=== PATIENT | female | born 1960 ===

== ENCOUNTER 2019-12-04 11:27 | Outpatient (REF) | payer OTHER, SELFPAY ==
[2019-12-04 13:48] LABS: MANUAL DIFF FLAG NO
[2019-12-04 13:48] LABS: Glucose Urine UA NEG (NEG); Leukocyte Esterase Urine NEG (NEG); Nitrite Urine NEG (NEG); Specific Gravity - Urine 1.025 (1.005-1.025); Urine Blood NEG (NEG); Urine Ketones NEG (NEG); Urine Protein NEG (NEG-TRACE)
[2019-12-04 13:49] LABS: Appearance Urine TURBID; Color Urine DARK YELLOW
[2019-12-04 13:55] LABS: Basophils Percent Auto 0.5 % (0-2); Eosinophils Absolute Auto 0.1 X10*3/uL (0.0-0.4); Eosinophils Percent Auto 1.8 % (0-4); Hematocrit 43.7 % (37-47); Hemoglobin 14.7 g/dl (12.0-16.0); Imm Gran Abs Auto 0.02 X10*3/uL (0.00-0.03); Imm Gran Pct Auto 0.4 % (0.0-0.4); Mean Corpuscular HGB Conc 33.6 g/dl (31.0-35.0); Mean Corpuscular Hemoglobin 30.2 pg (27.0-33.0); Mean Corpuscular Volume 89.7 fL (80-98); Mean Platelet Volume 9.7 fL (9.4-12.3); Monocytes Absolute Auto 0.4 X10*3/uL (0.1-1.2); Monocytes Percent Auto 6.4 % (2-11); Neutrophils Absolute Auto 3.2 X10*3/uL (2.0-8.3); Neutrophils Percent Auto 55.9 % (45-73); Platelet Count 290 X10*3/uL (160-400); Red Blood Count 4.87 X10*6/uL (4.20-5.50); Red Cell Distribution Width 12.2 % (11.0-16.0); White Blood Count 5.6 X10*3/uL (4.8-10.8)
[2019-12-04 13:57] LABS: RBC Urine 0 /HPF (0); WBC Urine 0 /HPF (0-4)
[2019-12-04 13:58] LABS: Amorphous Sediment Urine 4+ /LPF
[2019-12-04 14:24] LABS: Creatinine Urine 281.24 mg/dL; Microalbum/Creatinine Ratio Ur 4.9 ug/mg cr
[2019-12-04 14:36] LABS: Alanine Aminotransferase 23 U/L (0-31); Albumin Level 4.6 g/dL (3.5-5.0); Alkaline Phosphatase 86 U/L (39-117); Anion Gap 12 (12-20); Aspartate Amino Transferase 20 U/L (5-31); Bilirubin Total 0.7 mg/dL (0.0-1.0); Blood Urea Nitrogen 13 mg/dL (9-16); Calcium 9.6 mg/dL (8.4-10.2); Carbon Dioxide 30 mmol/L (22-29); Chloride 102 mmol/L (96-108); Cholesterol 167 mg/dL; Estimated Glomerular Filt Rate > 60; Glucose Fasting 115 mg/dL (60-99); HDL Cholesterol 51 mg/dL; LDL Cholesterol Calculated 92 mg/dl; Potassium 3.5 mmol/l (3.3-5.1); Sodium 140 mmol/L (135-145); Total Protein 7.5 g/dL (6.5-8.0); Triglycerides 120 mg/dL
[2019-12-04 14:44] LABS: TSH reflex Free T4 0.53 mIU/mL (0.32-4.0)
[2019-12-04 15:19] LABS: Estimated Average Glucose 148 mg/dL; Hemoglobin A1c % 6.8 %
== END 2019-12-04 11:28 | disposition home or self-care (01) ==
LOC: HO.10HDL 11:27
PROVIDERS: Visit Provider Internal Medicine
DX: E11.9 Type 2 diabetes mellitus without complications (principal); E78.5 Hyperlipidemia, unspecified; I10 Essential (primary) hypertension; J45.909 Unspecified asthma, uncomplicated; E55.9 Vitamin D deficiency, unspecified; E66.9 Obesity, unspecified; R00.2 Palpitations
CPT/HCPCS: 36415; 80053; 80061; 81003; 81015; 82043; 82306; 83036; 84443; 85025

== ENCOUNTER → 2020-01-21 15:11 | Outpatient (BNVA) | payer OTHER, SELFPAY | PROVIDERS: PCP Internal Medicine; Visit Provider Obstetrics & Gynecology | DX: Z76.89 Persons encountering health services in other specified circumstances (principal) ==

== ENCOUNTER 2020-02-20 13:20 | Outpatient (REF) | payer OTHER, SELFPAY ==
--- NOTE | 2020-02-20 13:23 | US_ITS ---
EXAMINATION: US PELVIS COMPLETE US PELVIS ENDOVAGINAL CLINICAL INFORMATION: Unspecified condition associated with female genital organs and menstrual cycle. Per the emt intermediate's notes, adnexal COMPARISON: Ultrasound 07/27/2012 TECHNIQUE: Transabdominal and transvaginal images of the pelvis were obtained. FINDINGS: UTERUS: Anteverted. Normal size and contour, measuring 9.0 x 4.4 x 5.4 cm (cervix to fundus x AP x transverse). Uniform, homogeneous endometrium measures 0.4 cm in width. Several small circumscribed leiomyomata are seen. There is a 2.3 cm leiomyoma in the anterior uterine body. This is hyperechoic suggesting calcification. There are additional 1.9 and 0.7 cm leiomyoma in the posterior uterine body. These are similar in size to the prior study. RIGHT OVARY: Normal size and echogenicity measuring 3.1 x 2.2 x 1.8 cm. 6.4 mL volume. LEFT OVARY: Normal size and echogenicity measuring 2.4 x 1.7 x 1.9 cm. 4.1 mL volume. FREE FLUID: No pelvic free fluid. US/US transvaginal IMPRESSION: Normal ovaries bilaterally. Several myomas are seen in the uterus, the largest measuring 2.3 cm may be calcified. Normal endometrial stripe.
--- NOTE | 2020-02-20 13:23 | US_ITS ---
EXAMINATION: US PELVIS COMPLETE US PELVIS ENDOVAGINAL CLINICAL INFORMATION: Unspecified condition associated with female genital organs and menstrual cycle. Per the commodity trader's notes, adnexal COMPARISON: Ultrasound 07/27/2012 TECHNIQUE: Transabdominal and transvaginal images of the pelvis were obtained. FINDINGS: UTERUS: Anteverted. Normal size and contour, measuring 9.0 x 4.4 x 5.4 cm (cervix to fundus x AP x transverse). Uniform, homogeneous endometrium measures 0.4 cm in width. Several small circumscribed leiomyomata are seen. There is a 2.3 cm leiomyoma in the anterior uterine body. This is hyperechoic suggesting calcification. There are additional 1.9 and 0.7 cm leiomyoma in the posterior uterine body. These are similar in size to the prior study. RIGHT OVARY: Normal size and echogenicity measuring 3.1 x 2.2 x 1.8 cm. 6.4 mL volume. LEFT OVARY: Normal size and echogenicity measuring 2.4 x 1.7 x 1.9 cm. 4.1 mL volume. FREE FLUID: No pelvic free fluid. US/US pelvic complete IMPRESSION: Normal ovaries bilaterally. Several myomas are seen in the uterus, the largest measuring 2.3 cm may be calcified. Normal endometrial stripe.
== END 2020-02-20 13:21 | disposition home or self-care (01) ==
LOC: HO.US 13:20
PROVIDERS: PCP Internal Medicine; Visit Provider Obstetrics & Gynecology
DX: N94.9 Unspecified condition associated with female genital organs and menstrual cycle (principal)
CPT/HCPCS: 76830; 76856

== ENCOUNTER → 2020-02-24 11:02 | Outpatient (BNVA) | payer OTHER, SELFPAY | PROVIDERS: PCP Internal Medicine; Visit Provider Obstetrics & Gynecology | DX: Z76.89 Persons encountering health services in other specified circumstances (principal) ==

== ENCOUNTER → 2020-03-09 13:26 | Outpatient (BNVA) | payer OTHER, SELFPAY | PROVIDERS: PCP Internal Medicine; Visit Provider Nurse Practitioner Family ==

== ENCOUNTER 2020-04-20 09:01 | Day surgery (SDC) | payer OTHER, SELFPAY ==
--- NOTE | 2020-04-17 09:34 | HO.ANESPROP2 ---
Documented by User: Kristan Jackson 04/17/20 09:34 HPI - Anesthesia Eval Consult details Narrative: 59yo F for Colonoscopy PMFSH Active Problems Active Problems: All Active Problems (Updated 04/15/20 @ 08:47 by Keila Saini) Adnexal fullness (Acute) Myoma (Acute) Obesity (BMI 30-39.9) (Acute) Depression (Acute) Anxiety (Acute) Insomnia (Acute) Vitamin D deficiency (Acute) Constipation (Acute) Asthma (Acute) Palpitations (Acute) Pure hypercholesterolemia (Acute) Benign essential hypertension (Acute) Type 2 diabetes mellitus without complications (Acute) Past Medical History Medical History (Updated 04/15/20 @ 08:47 by Keila Saini) Anxiety Asthma Benign essential hypertension Constipation Depression Insomnia Obesity (BMI 30-39.9) Palpitations Pure hypercholesterolemia Type 2 diabetes mellitus without complications Vitamin D deficiency Family History Family History Father Diabetes Stroke Hypertension Mother Uterine cancer Hypertension Sister No problems noted. Surgical History Surgical History History of removal of ovarian cyst History of tubal ligation Social History Social History Alcohol intake: current Alcohol intake frequency: a few times a month Alcohol type: wine Smoking Status: Never smoker Use of substances other than those prescribed or required for medical reasons: No Have you been hit, kicked, punched, or otherwise hurt by someone within the past year? If so, by whom?: No Advance Directives: Yes Advance Directives on File: Yes Advance Directives Date on File: 12/04/19 Sexual orientation: Straight/Heterosexual Gender identity: female Meds Allergies Allergy/AdvReac Type Severity Reaction Status Date / Time No Known Allergies Allergy Verified 03/11/20 13:44 Home Medications Medication Instructions Recorded Confirmed Last Taken Type albuterol sulfate 90 mcg/actuation 1 inh INHALATION Q4H PRN 12/11/19 04/15/20 Unknown History aerosol inhaler cyclobenzaprine 10 mg tablet 10 mg PO TID PRN 12/11/19 04/15/20 Unknown History amlodipine 2.5 mg tablet 2.5 mg PO DAILY 12/15/19 04/15/20 Unknown History ciclesonide 80 mcg/actuation 1 puff INHALATION BID 12/15/19 04/15/20 Unknown History aerosol inhaler citalopram 40 mg tablet 20 mg PO DAILY 12/15/19 04/15/20 Unknown History lorazepam 0.5 mg tablet 0.5 mg PO BID PRN 12/15/19 04/15/20 Unknown History albuterol sulfate 2.5 mg CONTINUOUS NEBULIZATION Q6H 03/11/20 04/15/20 Unknown History PRN Exam Exam Date and Time: April 17, [id number] Assessment and Plan Assessment Anesthesia Assessment: Chart Reviewed Documented by User: Diamante Sunshine 04/20/20 09:55 [facility] Past Medical History Medical History (Updated 04/15/20 @ 08:47 by Keila Saini) Anxiety Asthma Benign essential hypertension Constipation Depression Insomnia Obesity (BMI 30-39.9) Palpitations Pure hypercholesterolemia Type 2 diabetes mellitus without complications Vitamin D deficiency Family History Family History Father Diabetes Stroke Hypertension Mother Uterine cancer Hypertension Sister No problems noted. Surgical History Surgical History History of removal of ovarian cyst History of tubal ligation Social History Social History Alcohol intake: current Alcohol intake frequency: a few times a month Alcohol type: wine Smoking Status: Never smoker Use of substances other than those prescribed or required for medical reasons: No Have you been hit, kicked, punched, or otherwise hurt by someone within the past year? If so, by whom?: No Advance Directives: Yes Advance Directives on File: Yes Advance Directives Date on File: 12/04/19 Sexual orientation: Straight/Heterosexual Gender identity: female Meds Allergies Allergy/AdvReac Type Severity Reaction Status Date / Time No Known Allergies Allergy Verified 03/11/20 13:44 Home Medications Medication Instructions Recorded Confirmed Last Taken Type albuterol sulfate 90 mcg/actuation 1 inh INHALATION Q4H PRN 12/11/19 04/15/20 Unknown History aerosol inhaler cyclobenzaprine 10 mg tablet 10 mg PO TID PRN 12/11/19 04/15/20 Unknown History amlodipine 2.5 mg tablet 2.5 mg PO DAILY 12/15/19 04/15/20 Unknown History ciclesonide 80 mcg/actuation 1 puff INHALATION BID 12/15/19 04/15/20 Unknown History aerosol inhaler citalopram 40 mg tablet 20 mg PO DAILY 12/15/19 04/15/20 Unknown History lorazepam 0.5 mg tablet 0.5 mg PO BID PRN 12/15/19 04/15/20 Unknown History albuterol sulfate 2.5 mg CONTINUOUS NEBULIZATION Q6H 03/11/20 04/15/20 Unknown History PRN Exam Airway Mallampati Class: II TM Dist: >3cm Neck ROM: Full Heart: RRR Lungs: CTa BL Assessment and Plan Assessment Anesthesia Assessment: Anesthesia Plan Discussed and Chart Reviewed Final Anesthetic Review NPO: Yes ASA Class: II Final Preanesthetic Review: No Changes in Pt Med Stat Patient Risk: Intermediate Procedure Risk: Intermediate Anesthetic Plan Anesthetic Plan: MAC: Disposition: Standard PACU
[2020-04-20 09:18] VITALS: BMI 27.4
[2020-04-20 09:28] VITALS: BP 173/90; PULSE 84; RESP 18; TEMP 35.8; O2SAT 98
[2020-04-20] MEDS: Lactated Ringers 1,000 ML 100 ML IVCONT (09:40)
[2020-04-20 09:52] LABS: Glucose, Whole Blood 107 mg/dL (60-115)
--- NOTE | 2020-04-20 09:53 | W.PM.OPN ---
Operative Note Operative Note Date of Service: 04/20/20 Narrative: Pre-op diagnosis: Colon cancer screening, chronic constipation Post-op diagnosis: other (Diverticulosis, hemorrhoids) Procedure: COLONOSCOPY TO CECUM WITH BIOPSIES Consent: Indications for the procedure and potential complications of bleeding, perforation, reaction to medications and missed diagnosis were discussed with the patient with the help of a aluminum siding mechanic and informed consent was obtained. Instrument: Olympus PCF H 190 L variable stiffness pediatric colonoscope Monitoring: Vital signs and clinical assessment, intermittent blood pressure monitoring, continuous EKG monitoring, Pulse oximetry and Carbon Dioxide monitoring were done throughout the procedure. Colon withdrawl time was 16 minutes. Procedure: The patient was placed in the left lateral decubitis position and pre-procedure medications were administered. After a digital rectal examination of the ano-rectum, the video colonoscope was inserted into the rectum and advanced through the colon to the cecum. The colonoscope was slowly withdrawn in a retrograde panoramic fashion and the colon mucosa was carefully examined including a retroflexed view of the rectum. Findings and interventions are described below. Procedure Difficulty: Without difficulty Findings: Terminal Ileum: Not evaluated Cecum: Normal Ascending Colon: Patchy hyperpigmentation throughout the colon - biopsies were obtained to rule out melanosis coli Transverse Colon: Patchy hyperpigmentation throughout the colon - biopsies were obtained to rule out melanosis coli Descending Colon: Patchy hyperpigmentation throughout the colon - biopsies were obtained to rule out melanosis coli Sigmoid Colon: Mild diverticulosis Rectum: Normal Ano-rectum: Small internal hemorrhoids Colon preparation: Good after some irrigation Impression and Post Procedure Diagnosis: Colonoscopy Findings: No polyps were detected Patchy hyperpigmentation throughout the colon - biopsies were obtained to rule out melanosis coli Moderate diverticulosis seen in the sigmoid colon Moderate hemorrhoids on retroflexed exam. Plan: Await pathology results Patient has an appointment on 04/24/20 in the [facility] with Kelly Yuen FNP-JIMENA. Repeat Colonoscopy in 10 years. Above findings were reviewed with the patient and diverticulosis handouts were given in the discharge area Surgeon: Larry Hunt MD Anesthesia: MAC (Dr Ortega) Estimated blood loss (mL): 0 Pathology: other (Rt colon - rule out melanosis coli) Condition: stable Disposition: PACU
--- NOTE | 2020-04-20 09:53 | MHC.SHP ---
Pre-Procedural Eval Section A The patient is an INPATIENT: No The History & Physical has been completed within 30 days and I have reviewed it.: No Section B Chief Complaint: Screening Details of Present Illness: Colon cancer screening, chronic constipation Relevant Family History (Specify if Yes): No Relevant Social History: None Present Medications: see Short Stay Collaborative assessment Medical History: Significant History (Anxiety Asthma Benign essential hypertension Colon cancer screening Constipation Depression Insomnia Obesity (BMI 30-39.9) Palpitations Pure hypercholesterolemia Type 2 diabetes mellitus without complications Vitamin D deficiency) History of Previous Operations: Relevant previous surgery/procedure and date(s) (History of removal of ovarian cyst, History of tubal ligation) Allergies: Allergies Allergy/AdvReac Type Severity Reaction Status Date / Time No Known Allergies Allergy Verified 03/11/20 13:44 Review of Systems Sugical H&P ROS: Negative: Constitution, Cardiovascular and Respiratory and Yes, Specify: Gastrointestinal (constipation) Exam Surgical H&P Exam: Normal: Heart, Normal: Lungs, Normal: Extremities and Normal: Abdomen Plan Diagnosis/Plan: Unchanged I have reviewed the history and physical and performed a pertinent physical examination on my patient. No changes have occurred unless specified.
[2020-04-20 10:33] VITALS: BP 106/60; PULSE 74; RESP 16; TEMP 36.2; O2SAT 96
[2020-04-20 10:48] VITALS: BP 136/80; PULSE 79; RESP 18; TEMP 36.2; O2SAT 98
== END 2020-04-20 11:36 | disposition home or self-care (01) ==
PROVIDERS: PCP Internal Medicine; Visit Provider Internal Medicine Gastroenterology
PROC: 0DJD8ZZ Inspection of Lower Intestinal Tract, Via Natural or Artificial Opening Endoscopic (ICD-10-PCS; CPT 45378; principal; 2020-04-20 10:00)
DX: Z12.11 Encounter for screening for malignant neoplasm of colon (principal); K57.30 Diverticulosis of large intestine without perforation or abscess without bleeding; K63.89 Other specified diseases of intestine; K64.8 Other hemorrhoids; K59.00 Constipation, unspecified; J45.909 Unspecified asthma, uncomplicated; I10 Essential (primary) hypertension; E11.9 Type 2 diabetes mellitus without complications; F41.9 Anxiety disorder, unspecified; Z79.51 Long term (current) use of inhaled steroids; Z79.899 Other long term (current) drug therapy
CPT/HCPCS: 45380; 82947; 88305

== ENCOUNTER → 2020-04-24 13:46 | Outpatient (BNVA) | payer OTHER, SELFPAY | PROVIDERS: PCP Internal Medicine; Visit Provider Nurse Practitioner Family ==

== ENCOUNTER → 2020-05-15 14:43 | Outpatient (BNVA) | payer OTHER, SELFPAY | PROVIDERS: PCP Internal Medicine; Visit Provider Nurse Practitioner Family ==

== ENCOUNTER → 2020-07-31 13:42 | Outpatient (BNVA) | payer OTHER, SELFPAY | PROVIDERS: PCP Internal Medicine; Visit Provider Nurse Practitioner Family ==

== ENCOUNTER 2020-08-03 14:23 | Outpatient (REF) | payer OTHER, SELFPAY ==
--- NOTE | ~2020-08-03 | MM_ITS ---
EXAMINATION: MM SCREENING DIGITAL BREAST TOMOSYNTHESIS, BILATERAL CLINICAL INFORMATION: Screening. Asymptomatic. The lifetime risk of breast cancer based on the Tyrer-Cuzick Model is 5%. COMPARISON: Mammography: 02/26/2019, 12/21/2017, 11/17/2014 TECHNIQUE: Digital breast tomosynthesis is performed in both the craniocaudal and mediolateral oblique views along with computer-aided detection (CAD). Synthesized 2D images are generated from the tomosynthesis. FINDINGS: There are scattered areas of fibroglandular density (ACR BI-RADS breast composition Category b). There are no significant masses, abnormal calcifications, or other abnormalities. Parenchymal pattern is similar to prior studies. No developing density. There is a smooth dermal lesion again noted posterior medial right breast on MLO tomography. The axilla are unremarkable. No significant changes. MM/MM tomosynthesis screening BI IMPRESSION: No mammographic evidence of malignancy. ASSESSMENT: BI-RADS 2: Benign RECOMMENDATION: Routine annual mammography screening. This patient's information was entered into a reminder system with a target due date for their next mammogram.
== END 2020-08-03 14:24 | disposition home or self-care (01) ==
LOC: HO.MAMMO 14:23
PROVIDERS: Visit Provider Internal Medicine
DX: Z12.31 Encounter for screening mammogram for malignant neoplasm of breast (principal)
CPT/HCPCS: 77063; 77067

== ENCOUNTER 2020-09-21 13:23 | Emergency (ER) | payer OTHER, SELFPAY ==
--- NOTE | ~2020-09-21 | CT_ITS ---
EXAMINATION: CT ABDOMEN AND PELVIS WITHOUT CONTRAST CLINICAL INFORMATION: Question kidney stone. Suprapubic pain with blood in urinalysis COMPARISON: None TECHNIQUE: Multidetector volumetric imaging was performed from the superior aspect of the liver through the pubic symphysis. Sagittal and coronal reformatted images were obtained on the technologist's workstation. This CT examination was performed using dose optimization techniques as appropriate, variously including the following: *Automated exposure control *Adjustment of mA and/or kV according to patient size (this includes techniques or standardized protocols for targeted exams where dose is matched to indication/reason for exam; i.e. extremities or head) *Use of iterative reconstruction technique DLP: 563 mGy-cm FINDINGS: LUNG BASES: 6 mm nodule in the lingula adjacent to a region of linear atelectasis. 3 mm nodule in the medial right lung base (4, 56/730). Additional areas of linear atelectasis in both lung bases. LIVER, GALLBLADDER, AND BILIARY TREE: The liver is normal in size, shape, and attenuation. No focal hepatic lesion or biliary ductal dilatation is present. The gallbladder is unremarkable with no evidence of radiopaque gallstones, gallbladder wall thickening, or obvious pericholecystic inflammatory changes. PANCREAS: Unremarkable. SPLEEN: Unremarkable. ADRENAL GLANDS: Unremarkable. KIDNEYS AND URETERS: The kidneys are normal in size, shape, and attenuation. No hydronephrosis, hydroureter, or calculi seen. No perinephric stranding. BLADDER: Partially distended bladder is unremarkable, no bladder calculi. GASTROINTESTINAL TRACT: No bowel obstruction. Appendix is normal. A few colonic diverticuli. Some very mild nonspecific haziness in the mesentery. ABDOMINAL WALL: No significant hernia is appreciated. LYMPH NODES: Normal. VASCULAR: Unremarkable. PELVIC VISCERA: Unremarkable. OSSEOUS STRUCTURES: Unremarkable. CT/CT abdomen pelvis wo con IMPRESSION: No hydronephrosis or renal calculi. No acute abnormality to explain the patient's symptoms. A 6 mm nodule in the lingula and a 3 mm nodule in the right lower lobe. According to the UPDATED 2017 Fleischner Society recommendations, the advised follow-up imaging for solid nodules < 6 mm is: LOW RISK PATIENT: No routine follow-up. HIGH RISK PATIENT: Optional CT at 12 months.
[2020-09-21 15:29] VITALS: BP 167/78; PULSE 89; RESP 18; TEMP 37; O2SAT 99; BMI 29.5
[2020-09-21 16:27] LABS: Hematocrit 43.5 % (37-47); Hemoglobin 14.9 g/dl (12.0-16.0); Mean Corpuscular HGB Conc 34.3 g/dl (31.0-35.0); Mean Corpuscular Volume 90.6 fL (80-98); Mean Platelet Volume 9.3 fL (9.4-12.3); Platelet Count 252 X10*3/uL (160-400); Red Cell Distribution Width 12.3 % (11.0-16.0); White Blood Count 11.9 X10*3/uL (4.8-10.8)
[2020-09-21 16:47] LABS: Anion Gap 14 (12-20); Blood Urea Nitrogen 14 mg/dL (9-16); Carbon Dioxide 27 mmol/L (22-29); Chloride 104 mmol/L (96-108); Creatinine Clr Calc Pharmacy 73.8; Estimated Glomerular Filt Rate > 60; Glucose Random 119 mg/dL (60-115); Sodium 141 mmol/L (135-145)
[2020-09-21 18:20] LABS: Appearance Urine HAZY; Color Urine YELLOW; Glucose Urine UA NEG (NEG); Leukocyte Esterase Urine TRACE (NEG); Nitrite Urine NEG (NEG); Specific Gravity - Urine 1.025 (1.005-1.025); UACC Culture Trigger YES; Urine Blood 3+ (NEG); Urine Ketones NEG (NEG); Urine Protein 2+ MG/DL (NEG-TRACE)
[2020-09-21 18:25] LABS: Bacteria Urine 2+ /LPF; Squamous Epithelial Cell Urine 1+ /LPF; WBC Urine 0-2 /HPF (0-4)
[2020-09-21 18:36] VITALS: BP 144/88; PULSE 80; RESP 16; TEMP 37; O2SAT 99
[2020-09-21 18:58] VITALS: BP 179/82; PULSE 92; RESP 16; TEMP 36.8; O2SAT 98
--- NOTE | 2020-09-21 18:59 | PC.NURSE ---
Pt aaox4, sitting upright on stretcher in NAD, breathing with ease on RA. Pt offers complaints of BLQ abd pain, sharp, worse with urination. Pt states they told me I have a urinary infection so I'm just waiting. Pt denies n/v/d. Pt offers no additional complaints. Stretcher in low locked position, call [employer] and personal belongings within reach. Awaiting dispo
--- NOTE | 2020-09-21 19:07 | ED_ITS ---
HPI - Female Genitourinary General Chief complaint: Urogenital-Female Stated complaint: possible UTI? Time Seen by Provider: 09/21/20 17:51 Source: patient Mode of arrival: ambulatory Limitations: no limitations History of Present Illness HPI Narrative: Patient presents to the ED for suprapubic pain with dysuria and mild hematuria for the past couple days. Patient states no nausea, vomiting, flank pain, fever, chills or any recent trauma to pelvic, genital, abdominal area. MD elicited complaint: dysuria Related Data Home Medications Medication Instructions Recorded Confirmed albuterol sulfate 90 mcg/actuation 1 inh INHALATION Q4H PRN 12/11/19 04/15/20 aerosol inhaler cyclobenzaprine 10 mg tablet 10 mg PO TID PRN 12/11/19 04/15/20 amlodipine 2.5 mg tablet 2.5 mg PO DAILY 12/15/19 04/15/20 ciclesonide 80 mcg/actuation 1 puff INHALATION BID 12/15/19 04/15/20 aerosol inhaler (Alvesco) citalopram 40 mg tablet 20 mg PO DAILY 12/15/19 04/15/20 lorazepam 0.5 mg tablet 0.5 mg PO BID PRN 12/15/19 04/15/20 albuterol sulfate 2.5 mg CONTINUOUS NEBULIZATION Q6H 03/11/20 04/15/20 PRN Previous Rx's Medication Instructions Recorded mirtazapine 15 mg tablet 15 mg PO BEDTIME #30 tab 12/10/19 docusate sodium 100 mg capsule 100 mg PO DAILY #30 cap 03/09/20 trazodone 100 mg tablet 200 mg PO BEDTIME PRN 30 Days #60 03/11/20 tab ergocalciferol (vitamin D2) 1,250 1,250 mcg PO QWEEK #4 cap 03/31/20 mcg (50,000 unit) capsule lisinopril 20 1 tab PO DAILY #30 tab 03/31/20 mg-hydrochlorothiazide 25 mg tablet methylcellulose (laxative) 500 mg 500 mg PO DAILY #30 tab 04/24/20 tablet (Citrucel) metoprolol succinate 50 mg 50 mg PO DAILY #30 tab 07/15/20 tablet,extended release 24 hr atorvastatin 20 mg tablet 20 mg PO DAILY #30 tab 08/03/20 cefuroxime axetil 250 mg tablet 250 mg PO Q12H 7 Days #14 tab 09/21/20 naproxen 500 mg tablet 500 mg PO BID PRN #20 tab 09/21/20 Allergies Allergy/AdvReac Type Severity Reaction Status Date / Time No Known Allergies Allergy Verified 07/31/20 13:43 Review of Systems Review of Systems: Yes all other systems are reviewed and are negative Constitutional: Constitutional: Reports as per HPI and Reports no additional constitutional complaints Eyes: Eyes: Reports as per HPI and Reports no additional eye complaints ENT: Reports system reviewed and no additional complaints, except as documented and Reports as per HPI Cardiovascular: Cardiovascular: Reports as per HPI and Reports no additional cardiovascular complaints Respiratory: Respiratory: Reports as per HPI and Reports no additional respiratory complaints Gastrointestinal: Gastrointestinal: Reports as per HPI, Reports no additional gastrointestinal complaints and Reports abdominal pain (Suprapubic) Genitourinary: Genitourinary: Reports no additional female genitourinary complaints, Reports hematuria and Reports dysuria Musculoskeletal: Musculoskeletal: Reports no additional musculoskeletal complaints and Reports as per HPI Integumentary/Breasts: Skin/Breast: Reports system reviewed and no additional complaints, except as docu and Reports as per HPI Neurologic: Reports system reviewed and no additional complaints, except as d ocumented and Reports as per HPI Psychiatric: Psychiatric: Reports no additional psychiatric complaints and Reports as per HPI PMFSH Past Medical History Medical History Anxiety Asthma Benign essential hypertension Constipation Depression Insomnia Obesity (BMI 30-39.9) Palpitations Pure hypercholesterolemia Type 2 diabetes mellitus without complications Vitamin D deficiency Surgical History H/O colonoscopy History of removal of ovarian cyst History of tubal ligation Family History Family History Father Diabetes Stroke Hypertension Mother Uterine cancer Hypertension Sister No problems noted. Social History Social History Household Members: Children Alcohol intake: never Smoked in Last 30 Days: No Use of substances other than those prescribed or required for medical reasons: No Advance Directives: Yes Advance Directives on File: Yes Advance Directives Date on File: 12/04/19 Patient : No Sexual orientation: Straight/Heterosexual Gender identity: female Physical Exam Vital Signs: Vital Signs: Last Vital Signs Temp 98.4 F 09/21/20 20:31 Pulse 80 09/21/20 20:31 Resp 16 09/21/20 20:31 BP 165/75 H 09/21/20 20:31 Pulse Ox 99 09/21/20 20:31 Body Mass Index 29.5 Const: General: cooperative, healthy appearing, comfortable, no acute distress, well developed, alert, awake and Physically active O rientation/consciousness: patient oriented x3 HENMT: Head: Yes normal to inspection, Yes No palpable skull fracture present, Yes normocephalic and Yes atraumatic Eyes: General: appearance normal, both eyes and all related structures Neck: Neck: Yes normal visual inspection, Yes full ROM, Yes no lymphadenopathy, Yes no meningeal signs, Yes trachea midline, Yes supple and No tender Chest: Chest palpation & inspection: normal inspection of the chest and normal palpation of entire chest wall Resp: Effort & Inspection: normal respiratory effort and able to speak in complete sentences Auscultation: clear to auscultation bilaterally Cardio: Jugular venous distension: no JVD Heart sounds: S1 normal heart sound present and S2 normal heart sound present GI: Inspection: Yes normal to inspection and No abdominal wall ecchymosis Palpation (GI): Soft to palpation, not firm, nontender, no guarding and not rigid : General: No CVA tenderness and Yes no CVA tenderness Back/Spine/Pelvis: Back: no CVA tenderness, No CVA tenderness and No back tenderness Skin: General skin exam: no rashes or lesions noted and elasticity normal Neuro: General: patient oriented x3, gait normal, no meningeal signs and CN's II-XI intact bilaterally Cranial nerves: Yes CN's II-XII intact bilaterally Extrem: General: Yes normal to inspection and Yes full ROM Course Course Course Narrative: Patient was rapidly medical screen. Waiting for UA. Reevaluation(s) Reevaluation #1: Patient labs are normal, but show plenty of blood in the urine so although patient is comfortable was sent for abdominal CT to check for kidney stones. Time: 18:11 Reevaluation #2: Patient's abdominal CT came back negative for any kidney st ones. Patient will be discharged with antibiotics and follow-up with PCP. Patient vital signs stable. Time: 20:32 [facility] - Female Genitourinary MDM Narrative Medical decision making narrative: UTI Lab Data Result diagrams: 09/21/20 16:11 09/21/20 16:11 Labs: Lab Results 09/21/20 09/21/20 09/21/20 Range/Units 16:11 16:11 18:11 WBC 11.9 H (4.8-10.8) X10*3/uL RBC 4.80 (4.20-5.50) X10*6/uL Hgb 14.9 (12.0-16.0) g/dl Hct 43.5 (37-47) % MCV 90.6 (80-98) fL MCH 31.0 (27.0-33.0) pg MCHC 34.3 (31.0-35.0) g/dl RDW 12.3 (11.0-16.0) % Plt Count 252 (160-400) X10*3/uL MPV 9.3 L (9.4-12.3) fL Absolute Nucleated RBC 0.000 (0.0-0.012) X10*3/uL Nucleated RBC % (auto) 0.0 (0.0-0.2) /100WBC Sodium 141 (135-145) mmol/L Potassium 4.0 (3.3-5.1) mmol/L Chloride 104 (96-108) mmol/L Carbon Dioxide 27 (22-29) mmol/L Anion Gap 14 (12-20) BUN 14 (9-16) mg/dL Creatinine 0.78 (0.5-1.4) mg/dL Estim Creat Clear Calc 73.8 Estimated GFR > 60 Random Glucose 119 H (60-115) mg/dL Calcium 10.0 (8.4-10.2) mg/dL Urine Color YELLOW Urine Appearance HAZY Urine pH 6.0 (5.0-8.0) Ur Specific [place] 1.025 (1.005-1.025) Urine Protein 2+ H (NEG-TRACE) MG/DL Urine Glucose (UA) NEG (NEG) MG/DL Urine Ketones NEG (NEG) MG/DL Urine Blood 3+ H (NEG) Urine Nitrite NEG (NEG) Ur Leukocyte Esterase TRACE H (NEG) Urine RBC 15-29 H (0) /HPF Urine WBC 0-2 (0-4) /HPF Ur Squamous Epith Cells 1+ /LPF Urine Bacteria 2+ /LPF Discharge Plan Discharge Clinical Impression: Urinary tract infection Patient Disposition: Home, Self-Care Instructions: Urinary Tract Infection in Women (ED) Additional Instructions: Your blood work came back normal. Urine shows UTI. Abdominal CT scan came back negative for any kidney stones or signs of kidney infection. She will be discharged with antibiotics. Return to ED for any fever, chills, nausea, vomiting, flank pain, dizziness, weakness, or any other concerning symptoms. Prescriptions: New cefuroxime axetil 250 mg tablet 250 mg PO Q12H 7 Days Qty: 14 RF: 0 naproxen 500 mg tablet 500 mg PO BID PRN (Reason: pain) Qty: 20 RF: 0 No Action mirtazapine 15 mg tablet 15 mg PO BEDTIME Qty: 30 RF: 3 ergocalciferol (vitamin D2) 1,250 mcg (50,000 unit) capsule 1,250 mcg PO QWEEK Qty: 4 RF: 11 lisinopril-hydrochlorothiazide 20-25 mg tablet 1 tab PO DAILY Qty: 30 RF: 4 metoprolol succinate 50 mg tablet extended release 24 hr 50 mg PO DAILY Qty: 30 RF: 3 atorvastatin 20 mg tablet 20 mg PO DAILY Qty: 30 RF: 3 albuterol sulfate 90 mcg/actuation HFA aerosol inhaler 1 inh inhalation Q4H PRN (Reason: Shortness Of Breath) RF: 0 cyclobenzaprine 10 mg tablet 10 mg PO TID PRN (Reason: muscle spasm) RF: 0 citalopram 40 mg tablet 20 mg PO DAILY RF: 0 amlodipine 2.5 mg tablet 2.5 mg PO DAILY RF: 0 lorazepam 0.5 mg tablet 0.5 mg PO BID PRN (Reason: Anxiety) RF: 0 Alvesco 80 mcg/actuation HFA aerosol inhaler 1 puff inhalation BID RF: 0 albuterol sulfate 2.5 mg /3 mL (0.083 %) solution for nebulization 2.5 mg continuous nebulization Q6H PRN (Reason: shortness of breath or wheezing) RF: 0 trazodone 100 mg tablet 200 mg PO BEDTIME PRN (Reason: insomnia) 30 Days Qty: 60 RF: 5 Citrucel 500 mg tablet 500 mg PO DAILY Qty: 30 RF: 2 docusate sodium 100 mg capsule 100 mg PO DAILY Qty: 30 RF: 3 Interventions: ED Discharge Assessment Last Done: 09/21/20 20:50 Discharge Date/Time: 09/21/20 20:51 Print Language: [place]
[2020-09-21 20:31] VITALS: BP 165/75; PULSE 80; RESP 16; TEMP 36.9; O2SAT 99
== END 2020-09-21 20:51 | disposition home or self-care (01) ==
PROVIDERS: Emergency Provider Internal Medicine; PCP Internal Medicine
DX: N39.0 Urinary tract infection, site not specified (principal); I10 Essential (primary) hypertension; E11.9 Type 2 diabetes mellitus without complications; Z79.899 Other long term (current) drug therapy
CPT/HCPCS: 36415; 74176; 80048; 81001; 85027; 87086; 87088; 87186; 99284

== ENCOUNTER 2020-11-19 10:28 | Outpatient (REF) | payer OTHER, SELFPAY ==
[2020-11-19 13:51] LABS: MANUAL DIFF FLAG NO
[2020-11-19 14:02] LABS: Appearance Urine CLEAR; Color Urine YELLOW; Glucose Urine UA NEG (NEG); Leukocyte Esterase Urine NEG (NEG); Nitrite Urine NEG (NEG); PH 6.5 (5.0-8.0); Specific Gravity - Urine 1.015 (1.005-1.025); Urine Blood NEG (NEG); Urine Ketones NEG (NEG); Urine Protein NEG (NEG-TRACE)
[2020-11-19 14:04] LABS: Basophils Percent Auto 0.3 % (0-2); Eosinophils Absolute Auto 0.1 X10*3/uL (0.0-0.4); Eosinophils Percent Auto 1.3 % (0-4); Hematocrit 44.4 % (37-47); Hemoglobin 14.9 g/dl (12.0-16.0); Imm Gran Abs Auto 0.02 X10*3/uL (0.00-0.03); Imm Gran Pct Auto 0.3 % (0.0-0.4); Lymphocytes Absolute Auto 1.8 X10*3/uL (1.2-4.9); Lymphocytes Percent Auto 28.3 % (20-40); Mean Corpuscular HGB Conc 33.6 g/dl (31.0-35.0); Mean Corpuscular Hemoglobin 30.2 pg (27.0-33.0); Mean Corpuscular Volume 89.9 fL (80-98); Mean Platelet Volume 9.6 fL (9.4-12.3); Monocytes Absolute Auto 0.5 X10*3/uL (0.1-1.2); Monocytes Percent Auto 7.9 % (2-11); Neutrophils Absolute Auto 3.9 X10*3/uL (2.0-8.3); Neutrophils Percent Auto 61.9 % (45-73); Platelet Count 267 X10*3/uL (160-400); Red Blood Count 4.94 X10*6/uL (4.20-5.50); Red Cell Distribution Width 12.2 % (11.0-16.0); White Blood Count 6.3 X10*3/uL (4.8-10.8)
[2020-11-19 14:30] LABS: Alanine Aminotransferase 17 U/L (0-31); Albumin Level 4.4 g/dL (3.5-5.0); Alkaline Phosphatase 86 U/L (39-117); Anion Gap 13 (12-20); Aspartate Amino Transferase 16 U/L (5-31); Bilirubin Total 0.5 mg/dL (0.0-1.0); Blood Urea Nitrogen 12 mg/dL (9-16); Calcium 9.9 mg/dL (8.4-10.2); Carbon Dioxide 28 mmol/L (22-29); Chloride 101 mmol/L (96-108); Cholesterol 195 mg/dL; Estimated Glomerular Filt Rate > 60; Glucose Fasting 158 mg/dL (60-99); HDL Cholesterol 62 mg/dL; LDL Cholesterol Calculated 114 mg/dl; Potassium 4.1 mmol/L (3.3-5.1); Sodium 138 mmol/L (135-145); Total Protein 7.6 g/dL (6.5-8.0); Triglycerides 99 mg/dL
[2020-11-19 14:45] LABS: Microalbum/Creatinine Ratio Ur 4.9 ug/mg cr
[2020-11-19 14:54] LABS: Vitamin D 25-OH Total 27.4 ng/mL (>30)
== END 2020-11-19 10:29 | disposition home or self-care (01) ==
LOC: HO.10HDL 10:28
PROVIDERS: Visit Provider Internal Medicine
DX: I10 Essential (primary) hypertension (principal); R00.2 Palpitations; E78.00 Pure hypercholesterolemia, unspecified; E11.9 Type 2 diabetes mellitus without complications; E66.9 Obesity, unspecified; E55.9 Vitamin D deficiency, unspecified
CPT/HCPCS: 36415; 80053; 80061; 81003; 82043; 82306; 84443; 85025

== ENCOUNTER 2021-05-13 13:16 | Outpatient (REF) | payer OTHER, SELFPAY ==
--- NOTE | ~2021-05-13 | XR_ITS ---
EXAMINATION: XR LUMBOSACRAL SPINE CLINICAL INFORMATION: Low back pain . COMPARISON: None TECHNIQUE: 3 views. FINDINGS: There is no listhesis or compression injury. The SI joints are grossly patent. Some likely early degenerative changes in the posterior elements at L4-L5 and L5-S1. Mild loss of disc height at other levels with mild endplate spurring. XR/XR lumbar spine 2-3V IMPRESSION: Mild degenerative changes. No acute finding.
== END 2021-05-13 13:17 | disposition home or self-care (01) ==
LOC: HO.XRAY 13:16
PROVIDERS: PCP Internal Medicine; Visit Provider Internal Medicine
DX: M54.50 Low back pain, unspecified (principal)
CPT/HCPCS: 72100

== ENCOUNTER 2021-05-18 11:58 | Outpatient (REF) | payer OTHER, SELFPAY ==
[2021-05-18 12:15] LABS: MANUAL DIFF FLAG NO
[2021-05-18 12:23] LABS: Basophils Percent Auto 0.5 % (0-2); Eosinophils Absolute Auto 0.2 X10*3/uL (0.0-0.4); Eosinophils Percent Auto 2.4 % (0-4); Hematocrit 43.7 % (37.0-47.0); Hemoglobin 14.7 g/dl (12.0-16.0); Imm Gran Abs Auto 0.02 X10*3/uL (0.00-0.03); Imm Gran Pct Auto 0.3 % (0.0-0.4); Lymphocytes Absolute Auto 2.4 X10*3/uL (1.2-4.9); Mean Corpuscular HGB Conc 33.6 g/dl (31.0-35.0); Mean Corpuscular Hemoglobin 29.9 pg (27.0-33.0); Mean Platelet Volume 8.8 fL (9.4-12.3); Monocytes Absolute Auto 0.6 X10*3/uL (0.1-1.2); Monocytes Percent Auto 8.6 % (2-11); Neutrophils Absolute Auto 3.5 x10*3/uL (2.0-8.3); Neutrophils Percent Auto 52.2 % (45-73); Platelet Count 249 X10*3/uL (160-400); Red Blood Count 4.91 X10*6/uL (4.20-5.50); Red Cell Distribution Width 12.4 % (11.0-16.0); White Blood Count 6.7 X10*3/uL (4.8-10.8)
[2021-05-18 13:09] LABS: Estimated Average Glucose 169 mg/dL; Hemoglobin A1c % 7.5 %
[2021-05-18 13:22] LABS: Alanine Aminotransferase 21 U/L (0-31); Albumin Level 4.6 g/dL (3.5-5.0); Alkaline Phosphatase 86 U/L (39-117); Anion Gap 12 (12-20); Aspartate Amino Transferase 17 U/L (5-31); Bilirubin Total 0.6 mg/dL (0.0-1.0); Blood Urea Nitrogen 13 mg/dL (9-16); Calcium 10.1 mg/dL (8.4-10.2); Carbon Dioxide 29 mmol/L (22-29); Chloride 101 mmol/L (96-108); Cholesterol 182 mg/dL; Estimated Glomerular Filt Rate > 60; Glucose Fasting 140 mg/dL (60-99); HDL Cholesterol 56 mg/dL; LDL Cholesterol Calculated 98 mg/dl; Potassium 4.4 mmol/L (3.3-5.1); Sodium 138 mmol/L (135-145); Total Protein 7.8 g/dL (6.5-8.0); Triglycerides 143 mg/dL
[2021-05-18 13:32] LABS: Vitamin D 25-OH Total 38.6 ng/mL (>30)
[2021-05-18 14:01] LABS: Appearance Urine HAZY; Color Urine YELLOW; Glucose Urine UA NEG (NEG); Leukocyte Esterase Urine NEG (NEG); Nitrite Urine NEG (NEG); Specific Gravity - Urine 1.025 (1.005-1.025); Urine Blood NEG (NEG); Urine Ketones NEG (NEG); Urine Protein NEG (NEG-TRACE)
== END 2021-05-18 11:59 | disposition home or self-care (01) ==
LOC: HO.LAB 11:58
PROVIDERS: PCP Internal Medicine; Visit Provider Internal Medicine
DX: E11.9 Type 2 diabetes mellitus without complications (principal); E78.00 Pure hypercholesterolemia, unspecified; I10 Essential (primary) hypertension; E55.9 Vitamin D deficiency, unspecified
CPT/HCPCS: 36415; 80053; 80061; 81003; 82306; 83036; 84443; 85025

== ENCOUNTER → 2021-05-20 09:19 | Outpatient (BNVA) | payer OTHER, SELFPAY | PROVIDERS: Visit Provider Obstetrics & Gynecology | DX: Z13.89 Encounter for screening for other disorder (principal) ==

== ENCOUNTER 2021-06-14 11:13 | Outpatient (REF) | payer OTHER, SELFPAY ==
--- NOTE | ~2021-06-14 | US_ITS ---
EXAMINATION: US PELVIS CLINICAL INFORMATION: Myoma. COMPARISON: Ultrasound pelvis 02/20/2020. TECHNIQUE: Ultrasound of the pelvis is performed using both transabdominal and transvaginal transducers along with Doppler. Transvaginal imaging is performed due to inadequate visualization transabdominally. FINDINGS: UTERUS: The uterus is anteverted, anteflexed and measures 9.3 x 4.3 x 4.0 cm. The double wall endometrial thickness is 8 mm. The uterus is smooth in contour and has normal myometrial echogenicity. There are 2 hypoechoic lesions seen consistent with fibroids. Lesion in the upper anterior body of uterus measures 1.8 x 1.7 x 2.3 cm and best visualized on transabdominal ultrasound. Previously it measured 2.3 x 1.8 x 2.1 cm. Lesion in the posterior mid body of uterus measures 1.4 x 1.2 x 1.5 cm. Previously it measured 1.9 x 1.3 x 1.9 cm. Lesion described previously is not visualized at this time. On the previous ultrasound it measured 0.7 x 0.4 x 0.7 cm. There are small nabothian anechoic cysts seen in the cervix. ADNEXA: Both ovaries are visualized. There is normal color flow to the adnexa. There is no ovarian torsion. There is no pelvic ascites or fluid collection. Right ovary measures 3.4 x 1.8 x 1.7 cm and volume 5.4 mL. Previously measured 3.1 x 2.2 x 1.8 cm. There is a hyperechoic area measuring 2.6 x 1.6 x 1.6 cm. Left ovary measures 2.4 x 1.7 x 1.9 cm. Previously it measured 2.4 x 1.7 x 1.9 cm. There are echogenic foci seen in the left ovary. There is no free fluid in the cul-de-sac. US/US pelvic and transvaginal IMPRESSION: Two uterine fibroids visualized. Previously seen third fibroid is not seen at this time. There are small echogenic foci seen in the left ovary and a hyperechoic area in the right ovary. There are small nabothian cysts in the cervix.
== END 2021-06-14 11:14 | disposition home or self-care (01) ==
LOC: HO.US 11:13
PROVIDERS: Visit Provider Obstetrics & Gynecology
DX: D21.9 Benign neoplasm of connective and other soft tissue, unspecified (principal)
CPT/HCPCS: 76830; 76856

== ENCOUNTER 2021-08-19 10:48 | Outpatient (REF) | payer OTHER, SELFPAY ==
[2021-08-19 13:47] LABS: MANUAL DIFF FLAG NO
[2021-08-19 13:50] LABS: Basophils Percent Auto 0.5 % (0-2); Eosinophils Absolute Auto 0.1 X10*3/uL (0.0-0.4); Eosinophils Percent Auto 1.7 % (0-4); Hematocrit 41.7 % (37.0-47.0); Hemoglobin 13.8 g/dl (12.0-16.0); Imm Gran Abs Auto 0.01 X10*3/uL (0.00-0.03); Imm Gran Pct Auto 0.2 % (0.0-0.4); Lymphocytes Absolute Auto 2.1 X10*3/uL (1.2-4.9); Mean Corpuscular HGB Conc 33.1 g/dl (31.0-35.0); Mean Corpuscular Hemoglobin 29.7 pg (27.0-33.0); Mean Corpuscular Volume 89.9 fL (80.0-98.0); Mean Platelet Volume 9.6 fL (9.4-12.3); Monocytes Absolute Auto 0.4 X10*3/uL (0.1-1.2); Monocytes Percent Auto 7.2 % (2-11); Neutrophils Absolute Auto 3.2 x10*3/uL (2.0-8.3); Neutrophils Percent Auto 54.4 % (45-73); Platelet Count 279 X10*3/uL (160-400); Red Blood Count 4.64 X10*6/uL (4.20-5.50); Red Cell Distribution Width 13.1 % (11.0-16.0); White Blood Count 5.9 X10*3/uL (4.8-10.8)
[2021-08-19 13:59] LABS: Estimated Average Glucose 131 mg/dL; Hemoglobin A1c % 6.2 %
[2021-08-19 14:15] LABS: Alanine Aminotransferase 13 U/L (0-31); Albumin Level 4.5 g/dL (3.5-5.0); Alkaline Phosphatase 81 U/L (39-117); Anion Gap 15 (12-20); Aspartate Amino Transferase 16 U/L (5-31); Bilirubin Total 0.7 mg/dL (0.0-1.0); Blood Urea Nitrogen 18 mg/dL (9-16); Calcium 9.6 mg/dL (8.4-10.2); Carbon Dioxide 25 mmol/L (22-29); Chloride 103 mmol/L (96-108); Cholesterol 169 mg/dL; Estimated Glomerular Filt Rate > 60; Glucose Fasting 114 mg/dL (60-99); HDL Cholesterol 45 mg/dL; LDL Cholesterol Calculated 103 mg/dl; Potassium 3.8 mmol/L (3.3-5.1); Sodium 139 mmol/L (135-145); Total Protein 7.6 g/dL (6.5-8.0); Triglycerides 106 mg/dL
[2021-08-19 14:25] LABS: Appearance Urine CLOUDY; Color Urine YELLOW; Glucose Urine UA NEG (NEG); Leukocyte Esterase Urine NEG (NEG); Nitrite Urine NEG (NEG); Specific Gravity - Urine 1.025 (1.005-1.025); Urine Blood NEG (NEG); Urine Ketones NEG (NEG); Urine Protein NEG (NEG-TRACE)
[2021-08-19 14:32] LABS: Vitamin D 25-OH Total 35.4 ng/mL (>30)
[2021-08-19 15:46] LABS: Creatinine Urine 211.76 mg/dL; Microalbum/Creatinine Ratio Ur 4.2 ug/mg cr
== END 2021-08-19 10:49 | disposition home or self-care (01) ==
LOC: HO.10HDL 10:48
PROVIDERS: Visit Provider Internal Medicine
DX: E11.9 Type 2 diabetes mellitus without complications (principal); E55.9 Vitamin D deficiency, unspecified; I10 Essential (primary) hypertension; E78.00 Pure hypercholesterolemia, unspecified
CPT/HCPCS: 36415; 80053; 80061; 81003; 82043; 82306; 83036; 85025

== ENCOUNTER → 2021-08-31 14:52 | Outpatient (BNVA) | payer OTHER, SELFPAY | PROVIDERS: PCP Internal Medicine; Visit Provider Obstetrics & Gynecology | DX: D25.9 Leiomyoma of uterus, unspecified (principal) | CPT/HCPCS: 99212 ==

== ENCOUNTER 2021-11-24 09:31 | Outpatient (REF) | payer OTHER, SELFPAY ==
[2021-11-24 10:27] LABS: MANUAL DIFF FLAG NO
[2021-11-24 10:30] LABS: Basophils Percent Auto 0.5 % (0-2); Eosinophils Absolute Auto 0.1 X10*3/uL (0.0-0.4); Eosinophils Percent Auto 2.3 % (0-4); Hematocrit 43.2 % (37.0-47.0); Hemoglobin 14.7 g/dl (12.0-16.0); Imm Gran Abs Auto 0.02 X10*3/uL (0.00-0.03); Imm Gran Pct Auto 0.3 % (0.0-0.4); Lymphocytes Absolute Auto 2.2 X10*3/uL (1.2-4.9); Lymphocytes Percent Auto 36.2 % (20-40); Mean Corpuscular Hemoglobin 29.8 pg (27.0-33.0); Mean Corpuscular Volume 87.4 fL (80.0-98.0); Mean Platelet Volume 9.3 fL (9.4-12.3); Monocytes Absolute Auto 0.4 X10*3/uL (0.1-1.2); Monocytes Percent Auto 6.5 % (2-11); Neutrophils Absolute Auto 3.3 x10*3/uL (2.0-8.3); Neutrophils Percent Auto 54.2 % (45-73); Platelet Count 281 X10*3/uL (160-400); Red Blood Count 4.94 X10*6/uL (4.20-5.50); Red Cell Distribution Width 12.7 % (11.0-16.0); White Blood Count 6.1 X10*3/uL (4.8-10.8)
[2021-11-24 10:46] LABS: Estimated Average Glucose 137 mg/dL; Hemoglobin A1c % 6.4 %
[2021-11-24 11:00] LABS: Alanine Aminotransferase 15 U/L (0-31); Albumin Level 4.5 g/dL (3.5-5.0); Alkaline Phosphatase 76 U/L (39-117); Anion Gap 17 (12-20); Aspartate Amino Transferase 15 U/L (5-31); Bilirubin Total 0.5 mg/dL (0.0-1.0); Blood Urea Nitrogen 21 mg/dL (9-16); Calcium 9.9 mg/dL (8.4-10.2); Carbon Dioxide 25 mmol/L (22-29); Chloride 102 mmol/L (96-108); Cholesterol 185 mg/dL; Estimated Glomerular Filt Rate > 60; Glucose Fasting 137 mg/dL (60-99); HDL Cholesterol 56 mg/dL; LDL Cholesterol Calculated 107 mg/dl; Potassium 3.9 mmol/L (3.3-5.1); Sodium 140 mmol/L (135-145); Total Protein 7.6 g/dL (6.5-8.0); Triglycerides 113 mg/dL
[2021-11-24 11:08] LABS: Creatinine Urine 144.46 mg/dL; Microalbumin Urine < 5.0 mg/L
[2021-11-24 11:11] LABS: TSH reflex Free T4 0.71 uIU/mL (0.32-4.0); Vitamin D 25-OH Total 32.2 ng/mL (>30)
== END 2021-11-24 09:32 | disposition home or self-care (01) ==
LOC: HO.10HDL 09:31
PROVIDERS: Visit Provider Internal Medicine
DX: E78.00 Pure hypercholesterolemia, unspecified (principal); E55.9 Vitamin D deficiency, unspecified; I10 Essential (primary) hypertension; E11.9 Type 2 diabetes mellitus without complications
CPT/HCPCS: 36415; 80053; 80061; 82043; 82306; 83036; 84443; 85025

== ENCOUNTER 2022-05-17 08:03 | Outpatient (REF) | payer OTHER, SELFPAY ==
--- NOTE | ~2022-05-17 | XR_ITS ---
EXAMINATION: XR ELBOW, LEFT CLINICAL INFORMATION: Pain COMPARISON: None available. TECHNIQUE: AP, lateral, and oblique views of the left elbow. FINDINGS: Bone alignment is normal. No fracture or dislocation. No joint effusion. Small osteophyte at the coronoid process. Small osteophytes at the medial and lateral epicondyles. No joint effusion. Soft tissues are otherwise normal. XR/XR elbow LT min 3V IMPRESSION: Small osteophyte at the coronoid process. Small osteophytes adjacent to the medial and lateral epicondyles questionable for evidence of old epicondylitis.
== END 2022-05-17 08:04 | disposition home or self-care (01) ==
LOC: HO.HOSX 08:03
PROVIDERS: Visit Provider Physician Assistant
DX: M77.12 Lateral epicondylitis, left elbow (principal)
CPT/HCPCS: 20550; 73080; 99202; J1020

== ENCOUNTER 2022-05-27 10:49 | Outpatient (REF) | payer OTHER, SELFPAY ==
[2022-05-27 13:13] LABS: MANUAL DIFF FLAG NO
[2022-05-27 13:21] LABS: Basophils Percent Auto 0.5 % (0-2); Eosinophils Absolute Auto 0.1 X10*3/uL (0.0-0.4); Hematocrit 42.5 % (37.0-47.0); Hemoglobin 14.4 g/dl (12.0-16.0); Imm Gran Abs Auto 0.01 X10*3/uL (0.00-0.03); Imm Gran Pct Auto 0.2 % (0.0-0.4); Lymphocytes Absolute Auto 2.2 X10*3/uL (1.2-4.9); Lymphocytes Percent Auto 36.3 % (20-40); Mean Corpuscular HGB Conc 33.9 g/dl (31.0-35.0); Mean Corpuscular Hemoglobin 30.7 pg (27.0-33.0); Mean Corpuscular Volume 90.6 fL (80.0-98.0); Mean Platelet Volume 9.6 fL (9.4-12.3); Monocytes Absolute Auto 0.5 X10*3/uL (0.1-1.2); Monocytes Percent Auto 8.9 % (2-11); Neutrophils Absolute Auto 3.2 x10*3/uL (2.0-8.3); Neutrophils Percent Auto 52.1 % (45-73); Platelet Count 274 X10*3/uL (160-400); Red Blood Count 4.69 X10*6/uL (4.20-5.50); Red Cell Distribution Width 12.8 % (11.0-16.0); White Blood Count 6.1 X10*3/uL (4.8-10.8)
[2022-05-27 13:23] LABS: Appearance Urine Clear; Color Urine Yellow; Glucose Urine UA Negative (Negative); Leukocyte Esterase Urine Negative (Negative); Nitrite Urine Negative (Negative); Specific Gravity - Urine 1.025 (1.005-1.025); Urine Blood Negative (Negative); Urine Ketones Negative (Negative); Urine Protein Negative (Neg-Trace)
[2022-05-27 13:35] LABS: Estimated Average Glucose 137 mg/dL; Hemoglobin A1c % 6.4 %
[2022-05-27 13:43] LABS: Alanine Aminotransferase 19 U/L (0-31); Albumin Level 4.4 g/dL (3.5-5.0); Alkaline Phosphatase 77 U/L (39-117); Anion Gap 14 (12-20); Aspartate Amino Transferase 17 U/L (5-31); Bilirubin Total 0.8 mg/dL (0.0-1.0); Blood Urea Nitrogen 16 mg/dL (9-16); Calcium 9.8 mg/dL (8.4-10.2); Carbon Dioxide 28 mmol/L (22-29); Chloride 102 mmol/L (96-108); Cholesterol 176 mg/dL; Estimated Glomerular Filt Rate > 60; Glucose Fasting 117 mg/dL (60-99); HDL Cholesterol 59 mg/dL; LDL Cholesterol Calculated 102 mg/dl; Potassium 3.9 mmol/L (3.3-5.1); Sodium 140 mmol/L (135-145); Total Protein 7.2 g/dL (6.5-8.0); Triglycerides 77 mg/dL
[2022-05-27 13:44] LABS: Creatinine Urine 173.64 mg/dL; Microalbum/Creatinine Ratio Ur 5.7 ug/mg cr
[2022-05-27 13:52] LABS: TSH reflex Free T4 1.13 uIU/mL (0.32-4.0)
== END 2022-05-27 10:50 | disposition home or self-care (01) ==
LOC: HO.10HDL 10:49
PROVIDERS: Visit Provider Internal Medicine
DX: E55.9 Vitamin D deficiency, unspecified (principal); E11.9 Type 2 diabetes mellitus without complications; R30.0 Dysuria; E78.00 Pure hypercholesterolemia, unspecified; I10 Essential (primary) hypertension
CPT/HCPCS: 36415; 80053; 80061; 81003; 82043; 82306; 83036; 84443; 85025

== ENCOUNTER 2022-09-22 10:45 | Outpatient (REF) | payer OTHER, SELFPAY ==
[2022-09-22 13:15] LABS: MANUAL DIFF FLAG NO
[2022-09-22 13:42] LABS: Basophils Percent Auto 0.3 % (0-2); Eosinophils Absolute Auto 0.1 X10*3/uL (0.0-0.4); Eosinophils Percent Auto 1.9 % (0-4); Hemoglobin 14.6 g/dl (12.0-16.0); Imm Gran Abs Auto 0.01 X10*3/uL (0.00-0.03); Imm Gran Pct Auto 0.2 % (0.0-0.4); Lymphocytes Absolute Auto 2.2 X10*3/uL (1.2-4.9); Lymphocytes Percent Auto 38.4 % (20-40); Mean Corpuscular HGB Conc 33.2 g/dl (31.0-35.0); Mean Corpuscular Hemoglobin 30.4 pg (27.0-33.0); Mean Corpuscular Volume 91.5 fL (80.0-98.0); Mean Platelet Volume 9.9 fL (9.4-12.3); Monocytes Absolute Auto 0.4 X10*3/uL (0.1-1.2); Monocytes Percent Auto 7.6 % (2-11); Neutrophils Percent Auto 51.6 % (45-73); Platelet Count 268 X10*3/uL (160-400); Red Blood Count 4.81 X10*6/uL (4.20-5.50); Red Cell Distribution Width 12.5 % (11.0-16.0); White Blood Count 5.8 X10*3/uL (4.8-10.8)
[2022-09-22 13:43] LABS: Appearance Urine Turbid; Color Urine Yellow; Glucose Urine UA Negative (Negative); Leukocyte Esterase Urine Trace (Negative); Nitrite Urine Negative (Negative); PH 5.5 (5.0-9.0); Specific Gravity - Urine 1.025 (1.005-1.025); UMIC TRIGGER UACC YES; Urine Blood Negative (Negative); Urine Ketones Negative (Negative); Urine Protein Negative (Neg-Trace)
[2022-09-22 13:55] LABS: Estimated Average Glucose 134 mg/dL; Hemoglobin A1c % 6.3 %
[2022-09-22 14:00] LABS: Bacteria Urine 1+ (None Seen); Hyaline Casts Urine 0-2 /LPF (0-2); RBC Urine 0-2 /HPF (0-2); Squamous Epithelial Cell Urine >20 /HPF (0-2); WBC Urine 0-5 /HPF (0-5)
[2022-09-22 14:29] LABS: Alanine Aminotransferase 16 U/L (0-31); Albumin Level 4.4 g/dL (3.5-5.0); Alkaline Phosphatase 76 U/L (39-117); Anion Gap 17 (12-20); Aspartate Amino Transferase 16 U/L (5-31); Bilirubin Total 0.6 mg/dL (0.0-1.0); Blood Urea Nitrogen 14 mg/dL (9-16); Calcium 10.1 mg/dL (8.4-10.2); Carbon Dioxide 24 mmol/L (22-29); Chloride 103 mmol/L (96-108); Cholesterol 208 mg/dL; Estimated Glomerular Filt Rate > 60; Glucose Fasting 140 mg/dL (60-99); HDL Cholesterol 57 mg/dL; LDL Cholesterol Calculated 126 mg/dl; Potassium 3.7 mmol/L (3.3-5.1); Sodium 140 mmol/L (135-145); Total Protein 7.8 g/dL (6.5-8.0); Triglycerides 126 mg/dL
[2022-09-22 14:33] LABS: TSH reflex Free T4 1.04 uIU/mL (0.32-4.0); Vitamin D 25-OH Total 67.1 ng/mL (>30)
[2022-09-22 14:45] LABS: Microalbum/Creatinine Ratio Ur 4.8 ug/mg cr
== END 2022-09-22 10:46 | disposition home or self-care (01) ==
LOC: HO.10HDL 10:45
PROVIDERS: Visit Provider Internal Medicine
DX: E11.9 Type 2 diabetes mellitus without complications (principal); E55.9 Vitamin D deficiency, unspecified; E78.00 Pure hypercholesterolemia, unspecified; I10 Essential (primary) hypertension
CPT/HCPCS: 36415; 80053; 80061; 81001; 82043; 82306; 83036; 84443; 85025

== ENCOUNTER 2022-10-04 14:16 | Outpatient (AMB) | payer OTHER, SELFPAY ==
--- NOTE | 2022-10-04 14:16 | A.OFFPC_ITS ---
Vital Signs 10/04/22 14:17 Height 5 ft 3 in Weight 163 lb 8 oz BMI 29.0 BP 120/78 Blood Pressure Location Lt brachial Position Sitting Pulse 74 Pulse Source Pulse Oximeter Pulse Oximetry (%) 96 Oxygen Delivery Method Room Air Intake Visit Reasons: HTN, hyperlipidemia, DM Lens Silverer Required: No Accompanied by: Self / Same As Patient Allergies No Known Allergies Allergy (Verified 10/04/22 14:40) Medication List - Last Reconciled 10/04/22 by Moisés Snatos MD albuterol sulfate 2.5 mg continuous nebulization Q6H PRN albuterol sulfate 90 mcg/actuation 1 inh inhalation Q4-6H PRN amlodipine 2.5 mg PO DAILY 90 days atorvastatin 20 mg PO DAILY 90 days ciclesonide 80 mcg/actuation (Alvesco) 1 puff inhalation BID citalopram 40 mg PO DAILY 90 days cyclobenzaprine 10 mg PO TID PRN docusate sodium 100 mg PO DAILY PRN 30 days ergocalciferol (vitamin D2) 1,250 mcg PO QWEEK 90 days lisinopril-hydrochlorothiazide 20-25 mg 1 tab PO DAILY 90 days lorazepam 0.5 mg PO BID PRN meloxicam 15 mg PO DAILY metformin ER 500 mg PO QPM 90 days methylcellulose (laxative) (Citrucel) 500 mg PO DAILY metoprolol succinate ER 50 mg PO DAILY 90 days mirtazapine 15 mg PO BEDTIME 90 days trazodone 200 mg (2 x 100 mg) PO BEDTIME PRN 30 days Tobacco use date assessed: 10/04/22 Dental Screening Dental Screen Date: 10/04/22 Did you have a dental visit in the last 12 months?: Yes Did you have a dental problem in the last 6 months where you did not have access to dental care?: No Was dental information given to patient?: Patient has dentist HPI HTN, hyperlipidemia, DM HPI Details Patient comes in today for her follow up visit States that she feels okay She denies any headaches or dizziness Denies any SOB; relates that she still has occasional chest pains but she thinks they are mostly related to her anxiety No nausea/vomiting, no abdominal pain No change in bowel habits noted Needs her Trazodone Rx refilled Had her follow up labs done a couple of weeks ago - to discuss her results PFSH Medical History Anxiety Asthma Benign essential hypertension Constipation Depression Insomnia Obesity (BMI 30-39.9) Overweight (BMI 25.0-29.9) Palpitations Pure hypercholesterolemia Tinnitus of both ears Type 2 diabetes mellitus without complications Vitamin D deficiency Surgical History H/O colonoscopy (~04/20/20) History of removal of ovarian cyst History of tubal ligation Family History Father Diabetes Stroke Hypertension Mother Uterine cancer Hypertension Sister No problems noted. Social History Household Members: Children Housing: House Alcohol intake: current Alcohol intake frequency: holidays/special occasions only Alcohol type: wine Patient Tobacco Use Status: Never used Tobacco Tobacco use type: Cigarette e-Cigarette/Vaping Use: Never Used Second Hand Smoke Exposure: No Advance Directives Date on File: 12/04/19 Current occupational status: disabled Sexual orientation: Straight/Heterosexual Gender identity: Female Cognitive needs: No Hearing needs: No Vision needs: No Female Reproductive History Menstrual Age of Menarche: 14 Questionnaire PHQ-9 Over the last 2 weeks, how often have you been bothered by any of the following problems? 1. Little interest or pleasure in doing things: several days 2. Feeling down, depressed, or hopeless: several days 3. Trouble falling or staying asleep, or sleeping too much: several days 4. Feeling tired or having little energy: several days 5. Poor appetite or overeating: several days 6. Feeling bad about yourself - or that you are a failure or have let yourself or your family down: not at all 7. Trouble concentrating on things, such as reading the newspaper or watching television: not at all 8. Moving or speaking so slowly that other people could have noticed. Or the opposite - being so fidgety or restless that you have been moving around a lot more than usual: not at all 9. Thoughts that you would be better off or of hurting yourself in some way: not at all Total score: 5 Depression Screening Interpretation: Positive Depression Screening Follow-up: Existing condition and In treatment 62049 - PHQ-9 Billing: Yes Source: Developed by Drs. Kvng Pearson, Janae Peralta, Wm Reyes and colleagues, with an educational dali from [email or web address]. Thrive Questionnaire Date Thrive assessed: 10/04/22 I am a: Patient What is your living situation today?: I have a steady place to live Within the past 12 months, did the food you bought not last and you didn't have the money to get more?: Never true Within the past 12 months, did you worry whether your food would run out before you got money to buy more?: Never true Do you have trouble paying for medicines?: No Do you have trouble getting transportation to medical appointments?: No Do you have trouble paying your heating and electricity bill?: No Do you have trouble taking care of your child, family member or friend?: No Do you have trouble with day-to-day activities such as bathing, preparing meals, shopping, managing finances, etc.?: No Are you currently unemployed and looking for a job?: No Are you interested in more education?: No Please select the resources that you would like help with: None Currently or been in a relationship where the following occur: no concerns reported AUDIT C Alcohol Use Questionnaire (AUDIT-C) 1. How often do you have a drink containing alcohol?: Monthly or less 2. How many drinks containing alcohol do you have on a typical day when you are drinking?: 1 or 2 3. How often do you have six or more drinks on one occasion?: Never Total Score: 1 Score Reviewed/Action Taken: Yes CRISTHIAN-7 AMB Questionnaire CRISTHIAN-7 Date CRISTHIAN - 7 assessed: 10/04/22 Feeling nervous, anxious, or on edge: 1 = Several days Not being able to stop or control worryin = Several days Worrying too much about different things: 1 = Several days Trouble relaxin = Several days Being so restless that it is hard to sit still: 1 = Several days Becoming easily annoyed or irritable: 1 = Several days Feeling afraid as if something awful might happen: 1 = Several days Total CRISTHIAN-7 score (0-4 normal; 5-9 mild; 10-14 moderate; 15-21 severe): 7 Source: Developed by Drs. Kvng Pearson, Janae Peralta, Wm Reyes and colleagues, with an educational dali from [email or web address]. Review of Systems Const Denies fatigue, Denies fever(s) and Denies headache(s) ENT Denies dysphagia, Denies dizziness, Denies otalgia, Denies headache(s), Denies odynophagia, Reports tinnitus (on and off in the left ear) and Denies sore throat Card Reports chest pain (sharp, on and off), Denies palpitations and Denies dyspnea Resp Denies cough and Denies dyspnea GI Denies abdominal pain, Denies constipation, Denies dysphagia, Denies heartburn, Denies diarrhea, Denies nausea, Denies odynophagia and Denies vomiting Denies difficulty voiding, Denies nocturia and Denies dysuria Musc Denies arthralgias Neuro Denies dizziness and Denies headache(s) Endo Denies fatigue and Denies palpitations Physical exam (Primary Care) Vital Signs: Last Vital Signs Pulse 74 10/04/22 14:17 BP 120/78 10/04/22 14:17 Pulse Ox 96 10/04/22 14:17 Oxygen Delivery Method Room Air 10/04/22 14:17 BMI result Body Mass Index 29.0 Tobacco/Smoking Status: Tobacco use Status Tobacco use date assessed 10/04/22 10/04/22 14:21 Patient Tobacco Use Status Never used Tobacco 10/04/22 14:21 Tobacco use type Cigarette 10/04/22 14:21 e-Cigarette/Vaping Use Never Used 10/04/22 14:21 PHQ-9: PHQ-9 Score PHQ-9: Total score 5 10/04/22 14:21 Depression Screening Interpretation: Positive Depression Screening Follow-up: Existing condition and In treatment Thrive Assessment: Date of Thrive Assessment Date Thrive assessed 10/04/22 10/04/22 14:21 Currently or been in a relationship where the following occur: no concerns reported Const General: no acute distress and alert HENMT Ears: TM's normal bilaterally and EAC's normal Throat: Yes posterior oropharynx normal and Yes tonsils normal Neck Neck: Yes no lymphadenopathy and Yes supple Resp Auscultation: clear to auscultation bilaterally, no rales and no wheezes Cardio Rate: regular rate Rhythm: regular rhythm Heart sounds: no murmurs GI Palpation (GI): Soft to palpation and nontender Auscultation: normal bowel sounds Extrem General: Yes no clubbing, cyanosis or edema Results Reviewed Results Reviewed: Laboratory Tests 09/22/22 09/22/22 09/22/22 10:50 10:50 10:50 WBC 5.8 Hgb 14.6 Hct 44.0 Plt Count 268 Sodium 140 Potassium 3.7 Creatinine 0.76 Estimated GFR > 60 Fasting Glucose 140 H Hemoglobin A1c % Calcium 10.1 AST 16 ALT 16 Triglycerides 126 Cholesterol 208 LDL Cholesterol, Calc 126 HDL Cholesterol 57 25-OH Vitamin D Total 67.1 TSH 1.04 Ur Specific [place] 1.025 Urine Protein Negative Urine Glucose (UA) Negative Urine Blood Negative Microalb/Creat Ratio 09/22/22 09/22/22 10:50 10:50 WBC Hgb Hct Plt Count Sodium Potassium Creatinine Estimated GFR Fasting Glucose Hemoglobin A1c % 6.3 Calcium AST ALT Triglycerides Cholesterol LDL Cholesterol, Calc HDL Cholesterol 25-OH Vitamin D Total TSH Ur Specific [place] Urine Protein Urine Glucose (UA) Urine Blood Microalb/Creat Ratio 4.8 Assessment and Plan Assessment & Plan (1) Pure hypercholesterolemia: Code(s): E78.00 - Pure hypercholesterolemia, unspecified Plan: Results of her labs done a couple of weeks ago reviewed and discussed with patient - cautioned that her cholesterol numbers have increased from previous and her LDL cholesterol is now back at 126 mg/dl Reinforced low cholesterol diet Will increase her Atorvastatin to 40 mg QD Will recheck her labs in 4 months for follow up (2) Type 2 diabetes mellitus without complications: Comment: diet controlled Code(s): E11.9 - Type 2 diabetes mellitus without complications Qualifiers: Diabetes mellitus watermelon harvesting supervisor insulin use: without watermelon harvesting supervisor use Qualified Code(s): E11.9 - Type 2 diabetes mellitus without complications Plan: HgbA1c was at 6.3% on her labs done a couple of weeks ago (was at 6.4% a few months ago) - goal is < 7.0% Reinforced diabetic diet Continue Metformin ER 500 mg Q PM (3) Benign essential hypertension: Code(s): I10 - Essential (primary) hypertension Plan: Reinforced low sodium diet - goal is systolic BP of around 120 to 130 mm or less Continue Amlodipine 2.5 mg QD and Lisinopril-HCT 20-25 mg QD (4) Palpitations: Comment: Cardiac event monitor done on 07/03/2013 showed baseline sinus rhythm with mild sinus arrhythmia and no other abnormalities Code(s): R00.2 - Palpitations Plan: Continue Metoprolol ER 50 mg daily -? symptoms have remained well controlled on Rx (5) Chest pain: Code(s): R07.9 - Chest pain, unspecified Qualifiers: Chest pain type: unspecified Qualified Code(s): R07.9 - Chest pain, unspecified Plan: On and off Due to patient's comorbidities, will send her for cardiac stress testing for further evaluation (6) Asthma: Comment: uses daily inhaler, pren rescue inhaler & nebulizer Code(s): J45.909 - Unspecified asthma, uncomplicated Qualifiers: Asthma severity: moderate Asthma persistence: persistent Asthma complication type: uncomplicated Qualified Code(s): J45.40 - Moderate persistent asthma, uncomplicated Plan: Stable Continue Alvesco aerosol inhaler 80 mcg 1 inhalation twice a day and ProAir HFA 2 puffs every 6 hours only as needed - patient states that she hardly has to use her rescue inhaler at all lately (7) Tinnitus of left ear: Code(s): H93.12 - Tinnitus, left ear Plan: Was seen by ENT in [place] recently Patient states that she was advised that her ear exam was normal and was sent for an MRI of the head/ears for further evaluation - states that she has not heard back from anyone about her results since Will try to reach out to the ENT office in [place] to see if they can send over their office visit notes for our review (8) Constipation: Code(s): K59.00 - Constipation, unspecified Qualifiers: Constipation type: unspecified constipation type Qualified Code(s): K59.00 - Constipation, unspecified Plan: Encouraged? increased oral fluids and dietary fiber to help control her symptoms -? takes OTC stool softeners as needed with relief Was also started on Fiber supplements (Citrucel) by GI recently - to continue Had a normal colonoscopy back in April 2020 Follow up with GI as scheduled (9) Left lumbar pain: Code(s): M54.50 - Low back pain, unspecified Plan: Reinforced activity and weight-lifting restrictions Patient's lumbar spine x-rays done a few months ago came out showing only mild degenerative disc disease with no acute changes Can consider referral to Physical therapy for further evaluation and management if her left lower back pain persists or gets worse (10) Vitamin D deficiency: Code(s): E55.9 - Vitamin D deficiency, unspecified Plan: Continue Vitamin D2 57838 units once a week (11) Insomnia: Code(s): G47.00 - Insomnia, unspecified Qualifiers: Insomnia type: unspecified Qualified Code(s): G47.00 - Insomnia, unspecified Plan: Sleep hygiene reinforced Continue Trazodone 200 mg daily at bedtime as needed Advised that she can also add OTC Melatonin PRN to help her sleep better if she finds that her Trazodone is no longer helping her lately (12) Anxiety: Code(s): F41.9 - Anxiety disorder, unspecified Plan: Continue Lorazepam 0.5 mg 1 to 2 times a day as needed States that Citalopram helps with her anxiety as well (13) Depression: Code(s): F32.9 - Major depressive disorder, single episode, unspecified Qualifiers: Depression Type: major depressive disorder Major depression recurrence: recurrent Active/Remission status: currently active Major depression episode severity: unspecified Qualified Code(s): F33.9 - Major depressive disorder, recurrent, unspecified Plan: Continue Citalopram 40 mg once a day and Mirtazapine 15 mg daily at bedtime Follow-up with Psychiatry as scheduled (14) Overweight (BMI 25.0-29.9): Code(s): E66.3 - Overweight Plan: Reinforced diet/exercise as tolerated/lose weight Plan Follow up in 4 months Orders: Orders CA cardiopulmonary stress test Today E11.9 - Type 2 diabetes mellitus without complications, E78.00 - Pure hypercholesterolemia, unspecified, I10 - Essential (primary) hypertension, R07.9 - Chest pain, unspecified Complete Blood Count Auto Diff 4 Months I10 - Essential (primary) hypertension Comprehensive [place]. Panel Fast 4 Months E78.00 - Pure hypercholesterolemia, unspecified Lipid Panel 4 Months E78.00 - Pure hypercholesterolemia, unspecified Microalbumin, Random (w Creat) 4 Months E11.9 - Type 2 diabetes mellitus without complications Hemoglobin A1c 4 Months E11.9 - Type 2 diabetes mellitus without complications TSH reflex Free T4 4 Months E78.00 - Pure hypercholesterolemia, unspecified UA CC w/rflx Micro + Cult 4 Months R30.0 - Dysuria Vitamin D 25-OH Total 4 Months E55.9 - Vitamin D deficiency, unspecified Medications: Changed From atorvastatin 20 mg PO DAILY 90 days 90 tabs 1RF To atorvastatin Dose INCREASED to 40 mg QD 40 mg PO DAILY 90 tabs 1RF 90 days Refilled trazodone 200 mg (2 x 100 mg) PO BEDTIME PRN 60 tabs 12RF insomnia 30 days G47.00 - Insomnia, unspecified Coding Level of Care Code Est Pt Level 4 (39993) Diagnoses Pure hypercholesterolemia E78.00 Type 2 diabetes mellitus without complications E11.9 Diabetes mellitus penitentiary insulin use: without watermelon harvesting supervisor use Benign essential hypertension I10 Palpitations R00.2 Chest pain R07.9 Chest pain type: unspecified Asthma J45.40 Asthma severity: moderate Asthma persistence: persistent Asthma complication type: uncomplicated Tinnitus of left ear H93.12 Constipation K59.00 Constipation type: unspecified constipation type Left lumbar pain M54.50 Vitamin D deficiency E55.9 Insomnia G47.00 Insomnia type: unspecified Anxiety F41.9 Depression F33.9 Depression Type: major depressive disorder Major depression recurrence: recurrent Active/Remission status: currently active Major depression episode severity: unspecified Overweight (BMI 25.0-29.9) E66.3
[2022-10-04 14:17] VITALS: BP 120/78; PULSE 74; O2SAT 96; BMI 29.0
== END 2022-10-04 15:00 | disposition home or self-care (01) ==
PROVIDERS: PCP Internal Medicine; Visit Provider Internal Medicine
DX: E11.9 Type 2 diabetes mellitus without complications (principal); I10 Essential (primary) hypertension; J45.40 Moderate persistent asthma, uncomplicated; E55.9 Vitamin D deficiency, unspecified; E78.00 Pure hypercholesterolemia, unspecified; R00.2 Palpitations; R07.9 Chest pain, unspecified; H93.12 Tinnitus, left ear; K59.00 Constipation, unspecified; M54.50 Low back pain, unspecified; F41.9 Anxiety disorder, unspecified; F33.9 Major depressive disorder, recurrent, unspecified
CPT/HCPCS: 99214

== ENCOUNTER 2022-11-01 12:56 | Outpatient (REF) | payer OTHER, SELFPAY ==
[2022-11-02 07:01] LABS: CT PCR NOT DETECTED (Not Detect.); NG PCR NOT DETECTED (Not Detect.)
== END 2022-11-01 12:57 | disposition home or self-care (01) ==
LOC: HO.LNP 12:56
PROVIDERS: Visit Provider Obstetrics & Gynecology
DX: Z01.419 Encounter for gynecological examination (general) (routine) without abnormal findings (principal); R10.2 Pelvic and perineal pain
CPT/HCPCS: 0353U; 81003

== ENCOUNTER 2022-11-01 12:56 | Outpatient (AMB) | payer OTHER, SELFPAY ==
--- NOTE | 2022-11-01 13:02 | MHC.OFFVIS ---
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 Complaining of LLQ pain started 1-2 months ago. It's intermittent in nature lasting few seconds and occurs 3x/day. it is not associated with constipation, no dysuria, no frequency or incontinence, no n/v, no feverishness Last Pap/HPV was in 03/10 Last Mammogram was BI-RADS 2 in 08/10 Last Colonoscopy was in 05/10, the recommendation was to repeat in 10 years [facility] Medical History Overweight (BMI 25.0-29.9) Tinnitus of both ears Obesity (BMI 30-39.9) Depression Anxiety Insomnia Vitamin D deficiency Constipation Asthma Palpitations Pure hypercholesterolemia Benign essential hypertension Type 2 diabetes mellitus without complications Surgical History H/O colonoscopy (~04/20/20) History of removal of ovarian cyst History of tubal ligation Family History Father Diabetes Stroke Hypertension Mother Uterine cancer Hypertension Sister No problems noted. Social History Household Members: Children Housing: House Alcohol intake: current Alcohol intake frequency: holidays/special occasions only Alcohol type: wine Patient Tobacco Use Status: Never used Tobacco Tobacco use type: Cigarette e-Cigarette/Vaping Use: Never Used Second Hand Smoke Exposure: No Advance Directives Date on File: 12/04/19 Current occupational status: disabled Sexual orientation: Straight/Heterosexual Gender identity: Female Cognitive needs: No Hearing needs: No Vision needs: No Female Reproductive History Menstrual Age of Menarche: 14 Menopause type: natural Total pregnancies: 4 Full term: 4 Number of Living Children: 4 Date of last pap smear: 03/02/18 Date of Mammogram: 08/03/20 Review of Systems Const All systems reviewed & are unremarkable except as noted in HPI and below Card Reports as per HPI Resp Reports as per HPI GI Reports as per HPI and Reports no additional complaints Reports as per HPI Physical Exam Vital Signs: Last Vital Signs BP 106/70 11/01/22 13:04 BMI result Body Mass Index 28.3 Const General: cooperative, healthy appearing and comfortable Chest Chest palpation & inspection: normal inspection of the chest and normal palpation of entire chest wall Breast/axilla inspection: normal inspection of the breasts and normal inspection of the axillae Breast/axilla palpation: normal palpation of the breasts, normal palpation of the axillae and no axillary lymphadenopathy Resp Effort & Inspection: normal respiratory effort Auscultation: clear to auscultation bilaterally Percussion: percussion normal Cardio Palpation: normal PMI Rate: regular rate Rhythm: regular rhythm Heart sounds: no murmurs and no rubs Peripheral pulses: Peripheral pulses 2+ throughout GI Inspection: Yes normal to inspection Palpation (GI): Soft to palpation, nontender, no guarding, not rigid and No hepatosplenomegaly present Percussion: Yes normal to percussion Auscultation: normal bowel sounds Rectal Exam - Female: deferred General: Yes bladder normal to palpation External Female Exam: No lesion Speculum Exam - Vagina: normal appearance of the vagina, normal palpation, normal vaginal discharge and not erythematous Speculum Exam - Cervix: normal appearance of the cervix and normal palpation Bimanual exam- vagina & uterus: normal bimanual exam, normal palpation, uterine size normal, bladder normal to palpation, consistency normal and normal palpation Bimanual Exam- Adnexa, other: normal adnexae, no masses and no tenderness Assessment & Plan Assessment & Plan (1) Well woman exam: Code(s): Z01.419 - Encounter for gynecological examination (general) (routine) without abnormal findings Plan: Co testing not indicated this year. Counseled the patient about the recommended dietary allowance of 1200 mg of Calcium & 600 IU of vitamin D. Mammogram ordered . The patient was instructed to perform monthly self-breast exams and schedule annual exam in a year; all questions answered and the patient verbalized understanding. (2) Pelvic pain: Code(s): R10.2 - Pelvic and perineal pain Plan: Urine dip done in the office was negative . GC and chlamydia taken and pelvic ultrasound ordered. Discussed with the patient the differential diagnosis of pelvic pain including but not limited to adnexal, uterine masses, pelvic infections (PID), GI the (Irritable bowel syndrome, diverticulitis, others), musculoskeletal, myofascial pain abdominal wall , adhesions, endometriosis, psychological and others causes. Will check results and treat accordingly. All questions answered, the patient verbalized understanding. Instructed the patient to schedule follow-up appointment in 2 weeks Orders: Orders MM screening mammo BI Today Z12.31 - Encounter for screening mammogram for malignant neoplasm of breast US pelvic and transvaginal Today R10.2 - Pelvic and perineal pain CT NG by PCR Today R10.2 - Pelvic and perineal pain Urine Culture Today R35.0 - Frequency of micturition Coding Level of Care Code Est Pt Prev Care 40-64y(73368) Diagnoses Well woman exam Z01.419 Pelvic pain R10.2
[2022-11-01 13:04] VITALS: BP 106/70; BMI 28.3
== END 2022-11-01 13:45 | disposition home or self-care (01) ==
PROVIDERS: Visit Provider Obstetrics & Gynecology
DX: Z01.419 Encounter for gynecological examination (general) (routine) without abnormal findings (principal); R10.2 Pelvic and perineal pain; R35.0 Frequency of micturition
CPT/HCPCS: 99396

== ENCOUNTER 2022-11-09 14:30 | Outpatient (REF) | payer OTHER, SELFPAY ==
--- NOTE | ~2022-11-09 | US_ITS ---
EXAMINATION: US PELVIS COMPLETE CLINICAL INFORMATION: Pelvic pain COMPARISON: Pelvic ultrasound 06/14/2021 TECHNIQUE: Transabdominal and transvaginal imaging was performed. FINDINGS: The uterus is of normal size and echogenicity measuring 6.6 x 3.2 x 3.8 cm. A regular homogeneous endometrium is identified measuring 0.7 cm previously 0.6 cm. Nabothian cysts in the cervix. A 1.4 x 1.3 x 1.1 cm intramural myoma in the anterior body of the uterus is decreased from prior previously 1.8 x 1.7 x 2.3 cm. A second previously seen myoma was not identified today. Both ovaries are of normal size and echogenicity. The right measures 2.8 x 1.6 x 1.9 cm for a volume of 4.5 mL. The left measures 2.5 x 1.5 x 1.6 cm for a volume of 3.1 mL. There is no pelvic free fluid. US/US pelvic and transvaginal IMPRESSION: 1. The endometrium measures 0.7 cm in thickness minimally increased from prior. Given patient is postmenopausal, recommend correlation with any symptoms of postmenopausal bleeding and gynecologic evaluation and management if warranted. 2. A 1.4 cm intramural myoma in the anterior body of the uterus is decreased in size from prior. A second previously seen myoma was not identified today. 3. Unremarkable sonographic appearance of the ovaries.
== END 2022-11-09 14:31 | disposition home or self-care (01) ==
LOC: HO.US 14:30
PROVIDERS: PCP Internal Medicine; Visit Provider Obstetrics & Gynecology
DX: R10.2 Pelvic and perineal pain (principal)
CPT/HCPCS: 76830; 76856

== ENCOUNTER 2022-11-28 13:17 | Outpatient (REF) | payer OTHER, SELFPAY | END 2022-11-28 13:18 | disposition home or self-care (01) | LOC: HO.MAMMO 13:17 | PROVIDERS: PCP Internal Medicine; Visit Provider Obstetrics & Gynecology | DX: Z12.31 Encounter for screening mammogram for malignant neoplasm of breast (principal) | CPT/HCPCS: 77063; 77067 ==

== ENCOUNTER → 2022-11-28 13:30 | Outpatient (BNV) | payer OTHER, SELFPAY | PROVIDERS: PCP Internal Medicine; Visit Provider Radiology Diagnostic Radiology | DX: Z12.31 Encounter for screening mammogram for malignant neoplasm of breast (principal) | CPT/HCPCS: 77063; 77067 ==

== ENCOUNTER 2023-01-27 11:19 | Outpatient (REF) | payer OTHER, SELFPAY ==
[2023-01-27 13:27] LABS: MANUAL DIFF FLAG NO
[2023-01-27 13:35] LABS: Basophils Percent Auto 0.6 % (0-2); Eosinophils Absolute Auto 0.1 X10*3/uL (0.0-0.4); Eosinophils Percent Auto 1.8 % (0-4); Hematocrit 44.5 % (37.0-47.0); Hemoglobin 14.9 g/dl (12.0-16.0); Imm Gran Abs Auto 0.02 X10*3/uL (0.00-0.03); Imm Gran Pct Auto 0.3 % (0.0-0.4); Lymphocytes Absolute Auto 2.4 X10*3/uL (1.2-4.9); Lymphocytes Percent Auto 38.1 % (20-40); Mean Corpuscular HGB Conc 33.5 g/dl (31.0-35.0); Mean Corpuscular Hemoglobin 30.2 pg (27.0-33.0); Mean Corpuscular Volume 90.3 fL (80.0-98.0); Mean Platelet Volume 9.8 fL (9.4-12.3); Monocytes Absolute Auto 0.5 X10*3/uL (0.1-1.2); Monocytes Percent Auto 8.4 % (2-11); Neutrophils Absolute Auto 3.1 x10*3/uL (2.0-8.3); Neutrophils Percent Auto 50.8 % (45-73); Platelet Count 266 X10*3/uL (160-400); Red Blood Count 4.93 X10*6/uL (4.20-5.50); Red Cell Distribution Width 12.7 % (11.0-16.0); White Blood Count 6.2 X10*3/uL (4.8-10.8)
[2023-01-27 13:40] LABS: Appearance Urine Clear; Color Urine Yellow; Glucose Urine UA Negative (Negative); Leukocyte Esterase Urine Negative (Negative); Nitrite Urine Negative (Negative); Specific Gravity - Urine 1.025 (1.005-1.025); Urine Blood Negative (Negative); Urine Ketones Negative (Negative); Urine Protein Negative (Neg-Trace)
[2023-01-27 13:46] LABS: Estimated Average Glucose 134 mg/dL; Hemoglobin A1c % 6.3 % (<6.0)
[2023-01-27 14:28] LABS: Alanine Aminotransferase 18 U/L (0-31); Albumin Level 4.5 g/dL (3.5-5.0); Alkaline Phosphatase 86 U/L (39-117); Anion Gap 12 (12-20); Aspartate Amino Transferase 17 U/L (5-31); Bilirubin Total 0.5 mg/dL (0.0-1.0); Blood Urea Nitrogen 16 mg/dL (9-16); Carbon Dioxide 30 mmol/L (22-29); Chloride 105 mmol/L (96-108); Cholesterol 163 mg/dL (<200); Estimated Glomerular Filt Rate > 60; Glucose Fasting 125 mg/dL (60-99); HDL Cholesterol 56 mg/dL (>40); LDL Cholesterol Calculated 91 mg/dL (<100); Potassium 3.7 mmol/L (3.3-5.1); Sodium 143 mmol/L (135-145); Total Protein 7.8 g/dL (6.5-8.0); Triglycerides 82 mg/dL (<150)
[2023-01-27 14:51] LABS: Creatinine Urine 180.22 mg/dL; Microalbum/Creatinine Ratio Ur 8.3 ug/mg cr (<30)
[2023-01-27 15:18] LABS: Vitamin D 25-OH Total 48.9 ng/mL (>30)
== END 2023-01-27 11:20 | disposition home or self-care (01) ==
LOC: HO.10HDL 11:19
PROVIDERS: Visit Provider Internal Medicine
DX: E11.9 Type 2 diabetes mellitus without complications (principal); E78.00 Pure hypercholesterolemia, unspecified; R30.0 Dysuria; E55.9 Vitamin D deficiency, unspecified; I10 Essential (primary) hypertension
CPT/HCPCS: 36415; 80053; 80061; 81003; 82043; 82306; 82570; 83036; 84443; 85025

== ENCOUNTER 2023-02-04 12:06 | Outpatient (AMB) | payer OTHER, SELFPAY ==
--- NOTE | 2023-02-04 12:22 | AM.OFFWIN_ITS ---
Intake Vital Signs 02/04/23 12:23 Height 5 ft 3 in Weight 76.204 kg BMI 29.8 BP 130/82 Blood Pressure Location Rt brachial Position Sitting Pulse 88 Pulse Source Pulse Oximeter Temp 97.3 F Temp Source Oral Pulse Oximetry (%) 96 Oxygen Delivery Method Room Air Intake Visit Reasons: EP bad cough/chest rash Intake Note: Patient here for Cough which has been present for about 1 week, she states she had a fever and bodyaches for 1 day. Patient Tobacco Use Status: Never used Tobacco Allergies No Known Allergies Allergy (Verified 02/04/23 12:24) Do you need a note to return to daycare/school/sports/work: No HPI HPI Comments History of Present Illness Details 62-year-old who presents with fatigue, m alaise, myalgias, cough, rhinnorhea, subjective fevers and chills that about a week ago.? No known sick contacts.? Denies chest pain, shortness of breath, nausea, vomiting, abdominal pain, headache vision change, dizziness, weakness, changes in bowel or urinary habits Physical exam benign History and physical exam concerning for viral illness versus bronchitis ( most likely) versus flu versus COVID versus RSV.? Unlikely pneumonia, ACS, dissection, pulmonary embolism, acute respiratory distress Plan at this time viral testing will discharge patient home with antibiotics, steroids, inhaler based off length of symptoms. Will also obtain viral test. Educated patient on diagnosis and treatment plan, answered all question, patient verbalizes understanding.? At this time patient will be discharged home, advised to return with new or worsening symptoms.? Educated on worrisome signs and symptoms and when to return.? At this time I feel comfortable discharge home. [facility] Medical History Overweight (BMI 25.0-29.9) Tinnitus of both ears Obesity (BMI 30-39.9) Depression Anxiety Insomnia Vitamin D deficiency Constipation Asthma Palpitations Pure hypercholesterolemia Benign essential hypertension Type 2 diabetes mellitus without complications Surgical History H/O colonoscopy (~04/20/20) History of removal of ovarian cyst History of tubal ligation Family History Father Diabetes Stroke Hypertension Mother Uterine cancer Hypertension Sister No problems noted. Social History Household Members: Children Housing: House Alcohol intake: current Alcohol intake frequency: holidays/special occasions only Alcohol type: wine Patient Tobacco Use Status: Never used Tobacco Tobacco use type: Cigarette e-Cigarette/Vaping Use: Never Used Second Hand Smoke Exposure: No Advance Directives Date on File: 12/04/19 Current occupational status: disabled Sexual orientation: Straight/Heterosexual Gender identity: Female Cognitive needs: No Hearing needs: No Vision needs: No Female Reproductive History Menstrual Age of Menarche: 14 Review of Systems Const Details: Constitutional : No Weight loss, No Fever, No Chills, + Fatigue, + Malaise ENT/Mouth : No sore throat, No Rhinorrhea Eyes: No Eye Pain, No Swelling, No Redness Cardiovascular : No Chest Pain, No SOB, No Dyspnea on Exertion, No Orthopnea, No Edema, No Palpitations Respiratory : + Cough, No Sputum, No Wheezing Gastrointestinal : No Nausea, No Vomiting, No Diarrhea, No Constipation, No abdominal Pain, No Hematochezia, No Melena Genitourinary : No Dysuria, No Urinary Frequency, No Hematuria, Musculoskeletal : No joint pain, No Myalgias, No Joint Swelling Skin : No Skin Lesions, No rash Neuro : No Weakness, No Numbness, No Dizziness, No Headache Psych : No Anxiety/Panic, No Depression All other systems reviewed and are negative All systems reviewed & are unremarkable except as noted in HPI and below Physical Exam Vital Signs: Last Vital Signs Temp 97.3 F 02/04/23 12:23 Pulse 88 02/04/23 12:23 BP 130/82 02/04/23 12:23 Pulse Ox 96 02/04/23 12:23 Oxygen Delivery Method Room Air 02/04/23 12:23 BMI result Body Mass Index 29.8 vss Appearance: Alert.? Oriented X3.? No acute distress.? Head: Normocephalic, atraumatic, no step-offs or deformities Eyes: Pupils equal, round and reactive to light.? Neck: Normal inspection.? Neck supple.? CVS: Normal heart rate and rhythm.? Pulses normal.? Respiratory: No respiratory distress.? Breath sounds normal.? Abdomen: Soft and nontender.? Skin: Skin warm and dry.? Normal skin color.? Normal skin turgor.? Extremities: No lower extremity edema.? No calf ttp. 5/5 strength to bilateral upper and lower extremities Neuro: Oriented X 3.? No motor deficit.? No sensory deficit. CN 2-12 intact Assessment & Plan Assessment & Plan (1) Upper respiratory infection: Code(s): J06.9 - Acute upper respiratory infection, unspecified Plan Take your medications as prescribed. If you were prescribed antibiotics today, it is important that you take your medication to their entirety, do not skip any doses, do not finish them early. Follow-up with your primary care provider this week. Return to the emergency department with new or worsening symptoms. Such as fevers, chills, chest pain, shortness of breath, nausea, vomiting, dizziness, headache, vision changes, lethargy In case of emergency call 911 Medications: New albuterol sulfate 2.5 mg (0.5 mL) inhalation Q6H PRN 20 mL 0RF shortness of breath or wheezing prednisone 40 mg (2 x 20 mg) PO DAILY 10 tabs 0RF 5 days albuterol sulfate 90 mcg/actuation 2 puffs inhalation Q6H PRN 6.7 grams 0RF shortness of breath or wheezing doxycycline hyclate 100 mg PO BID 14 caps 0RF 7 days Coding Level of Care Code Est Pt Level 3 (96845) Diagnoses Upper respiratory infection J06.9
[2023-02-04 12:23] VITALS: BP 130/82; PULSE 88; TEMP 36.3; O2SAT 96; BMI 29.8
== END 2023-02-04 13:18 | disposition home or self-care (01) ==
PROVIDERS: PCP Internal Medicine; Visit Provider Physician Assistant
DX: J06.9 Acute upper respiratory infection, unspecified (principal)
CPT/HCPCS: 99051; 99213

== ENCOUNTER 2023-02-04 13:30 | Outpatient (REF) | payer OTHER, SELFPAY ==
[2023-02-04 16:29] LABS: Influenza A PCR NEGATIVE (Negative); Influenza B PCR NEGATIVE (Negative); Resp Syncy Virus RNA Qual PCR NEGATIVE (Negative); SARS COV2 PCR INHOUSE POSITIVE (Negative)
== END 2023-02-04 13:31 | disposition home or self-care (01) ==
LOC: HO.LNP 13:30
PROVIDERS: Visit Provider Physician Assistant
DX: R09.89 Other specified symptoms and signs involving the circulatory and respiratory systems (principal); Z11.52 Encounter for screening for COVID-19
CPT/HCPCS: 0241U

== ENCOUNTER 2023-04-21 10:56 | Outpatient (AMB) | payer OTHER, SELFPAY ==
[2023-04-21 11:30] VITALS: BP 120/86; PULSE 74; O2SAT 95; BMI 28.7
--- NOTE | 2023-04-21 11:30 | A.OFFPC_ITS ---
Vital Signs 04/21/23 11:30 Height 5 ft 3 in Weight 162 lb 4 oz BMI 28.7 BP 120/86 Blood Pressure Location Lt brachial Position Sitting Pulse 74 Pulse Source Pulse Oximeter Pulse Oximetry (%) 95 Oxygen Delivery Method Room Air Intake Visit Reasons: 4mth f/u HTN, DM Web Site Designer Required: No Accompanied by: Self / Same As Patient Allergies No Known Allergies Allergy (Verified 04/21/23 11:55) Medication List - Last Reconciled 04/21/23 by Moisés Santos MD albuterol sulfate 2.5 mg continuous nebulization Q6H PRN albuterol sulfate 2.5 mg (0.5 mL) inhalation Q6H PRN albuterol sulfate 90 mcg/actuation 1 inh inhalation Q4-6H PRN albuterol sulfate 90 mcg/actuation 2 puffs inhalation Q6H PRN amlodipine 2.5 mg PO DAILY 90 days atorvastatin 40 mg PO DAILY 90 days ciclesonide 80 mcg/actuation (Alvesco) 1 puff inhalation BID citalopram 40 mg PO DAILY 90 days cyclobenzaprine 10 mg PO TID PRN docusate sodium 100 mg PO DAILY PRN 30 days doxycycline hyclate 100 mg PO BID 7 days ergocalciferol (vitamin D2) 1,250 mcg PO QWEEK 90 days lisinopril-hydrochlorothiazide 20-25 mg 1 tab PO DAILY 90 days lorazepam 0.5 mg PO BID PRN meloxicam 15 mg PO DAILY metformin ER 500 mg PO QPM 90 days methylcellulose (laxative) (Citrucel) 500 mg PO DAILY metoprolol succinate ER 50 mg PO DAILY 90 days mirtazapine 15 mg PO BEDTIME 90 days prednisone 40 mg (2 x 20 mg) PO DAILY 5 days trazodone 200 mg (2 x 100 mg) PO BEDTIME PRN 30 days Tobacco use date assessed: 04/21/23 Dental Screening Dental Screen Date: 04/21/23 Did you have a dental visit in the last 12 months?: No Did you have a dental problem in the last 6 months where you did not have access to dental care?: No Was dental information given to patient?: Patient has dentist HPI 4mth f/u HTN, DM HPI Details Patient comes in today for her follow up visit States that she feels okay She denies any headaches but states that she's had occasional brief bouts of dizziness lately, often in the morning States that she had another episode this morning and she checked her blood pressure and her systolic BP was normal at around 120 mm so she did NOT take her BP meds today She denies any chest pains, no increased SOB No nausea/vomiting, no abdominal pain No change in bowel habits noted Had her follow up labs done back in January 2023 - to discuss her results She missed her appt last 02/03/2023 and was rescheduled to today so no other follow up labs were ordered for her since [facility] Medical History Overweight (BMI 25.0-29.9) Tinnitus of both ears Obesity (BMI 30-39.9) Depression Anxiety Insomnia Vitamin D deficiency Constipation Asthma Palpitations Pure hypercholesterolemia Benign essential hypertension Type 2 diabetes mellitus without complications Surgical History H/O colonoscopy (~04/20/20) History of removal of ovarian cyst History of tubal ligation Family History Father Diabetes Stroke Hypertension Mother Uterine cancer Hypertension Sister No problems noted. Social History Household Members: Children Housing: House Alcohol intake: current Alcohol intake frequency: holidays/special occasions only Alcohol type: wine Patient Tobacco Use Status: Never used Tobacco Tobacco use type: Cigarette e-Cigarette/Vaping Use: Never Used Second Hand Smoke Exposure: No Advance Directives Date on File: 12/04/19 Current occupational status: disabled Sexual orientation: Straight/Heterosexual Gender identity: Female Cognitive needs: No Hearing needs: No Vision needs: No Female Reproductive History Menstrual Age of Menarche: 14 Questionnaire PHQ-9 Over the last 2 weeks, how often have you been bothered by any of the following problems? 1. Little interest or pleasure in doing things: several days 2. Feeling down, depressed, or hopeless: several days 3. Trouble falling or staying asleep, or sleeping too much: several days 4. Feeling tired or having little energy: several days 5. Poor appetite or overeating: several days 6. Feeling bad about yourself - or that you are a failure or have let yourself or your family down: not at all 7. Trouble concentrating on things, such as reading the newspaper or watching television: not at all 8. Moving or speaking so slowly that other people could have noticed. Or the opposite - being so fidgety or restless that you have been moving around a lot more than usual: not at all 9. Thoughts that you would be better off or of hurting yourself in some way: not at all Total score: 5 Depression Screening Interpretation: Positive Depression Screening Follow-up: Existing condition and In treatment Depression Screening Done: Yes 92633 - PHQ-9 Billing: Yes Source: Developed by Drs. Kvng Pearson, Janae Peralta, Wm Reyes and colleagues, with an educational dali from [employer]. Thrive Questionnaire Date Thrive assessed: 04/21/23 I am a: Patient What is your living situation today?: I have a steady place to live Within the past 12 months, did the food you bought not last and you didn't have the money to get more?: Never true Within the past 12 months, did you worry whether your food would run out before you got money to buy more?: Never true Do you have trouble paying for medicines?: No Do you have trouble getting transportation to medical appointments?: No Do you have trouble paying your heating and electricity bill?: No Do you have trouble taking care of your child, family member or friend?: No Do you have trouble with day-to-day activities such as bathing, preparing meals, shopping, managing finances, etc.?: No Are you currently unemployed and looking for a job?: No Are you interested in more education?: No Please select the resources that you would like help with: None Currently or been in a relationship where the following occur: no concerns reported THRIVE Score: 0 AUDIT C Alcohol Use Questionnaire (AUDIT-C) 1. How often do you have a drink containing alcohol?: Monthly or less 2. How many drinks containing alcohol do you have on a typical day when you are drinking?: 1 or 2 3. How often do you have six or more drinks on one occasion?: Never Total Score: 1 Score Reviewed/Action Taken: Yes CRISTHIAN-7 AMB Questionnaire CRISTHIAN-7 Date CRISTHIAN - 7 assessed: 04/21/23 Feeling nervous, anxious, or on edge: 1 = Several days Not being able to stop or control worryin = Several days Worrying too much about different things: 1 = Several days Trouble relaxin = Several days Being so restless that it is hard to sit still: 1 = Several days Becoming easily annoyed or irritable: 1 = Several days Feeling afraid as if something awful might happen: 1 = Several days Total CRISTHIAN-7 score (0-4 normal; 5-9 mild; 10-14 moderate; 15-21 severe): 7 Source: Developed by Drs. Kvng Pearson, Janae Peralta, Wm Reyes and colleagues, with an educational dali from [employer]. Review of Systems Const Denies chills, Denies fatigue, Denies fever(s) and Denies headache(s) ENT Denies dysphagia, Reports dizziness (occasionally lately), Denies otalgia, Denies headache(s), Denies neck pain, Denies odynophagia, Reports tinnitus (on and off in the left ear) and Denies sore throat Card Denies chest pain, Denies palpitations and Denies dyspnea Resp Denies cough and Denies dyspnea GI Denies abdominal pain, Denies constipation, Denies dysphagia, Denies heartburn, Denies diarrhea, Denies nausea, Denies odynophagia and Denies vomiting Denies difficulty voiding, Denies nocturia, Denies dysuria and Denies urinary urgency Musc Denies back pain, Denies arthralgias and Denies neck pain Skin/Breast Denies rash Neuro Reports dizziness (occasionally lately) and Denies headache(s) Endo Denies fatigue and Denies palpitations Physical exam (Primary Care) Vital Signs: Last Vital Signs Pulse 74 04/21/23 11:30 BP 120/86 04/21/23 11:30 Pulse Ox 95 04/21/23 11:30 Oxygen Delivery Method Room Air 04/21/23 11:30 BMI result Body Mass Index 28.7 Tobacco/Smoking Status: Tobacco use Status Tobacco use date assessed 04/21/23 04/21/23 11:41 Patient Tobacco Use Status Never used Tobacco 04/21/23 11:41 Tobacco use type Cigarette 04/21/23 11:41 e-Cigarette/Vaping Use Never Used 04/21/23 11:41 PHQ-9: PHQ-9 Score PHQ-9: Total score 5 04/21/23 11:41 Depression Screening Interpretation: Positive Depression Screening Follow-up: Existing condition and In treatment Thrive Assessment: Date of Thrive Assessment Date Thrive assessed 04/21/23 04/21/23 11:41 Currently or been in a relationship where the following occur: no concerns reported Const General: no acute distress and alert HENMT Ears: TM's normal bilaterally and EAC's normal Throat: Yes posterior oropharynx normal and Yes tonsils normal Neck Neck: Yes no lymphadenopathy and Yes supple Thyroid: Thyroid normal Resp Auscultation: clear to auscultation bilaterally, no rales and no wheezes Cardio Rate: regular rate Rhythm: regular rhythm Heart sounds: no murmurs GI Palpation (GI): Soft to palpation and nontender Auscultation: normal bowel sounds General: Yes no CVA tenderness Back/Spine/Pelvis Back: no CVA tenderness Skin Rashes: no rashes Extrem General: Yes no clubbing, cyanosis or edema Results Reviewed Results Reviewed: Laboratory Tests 01/27/23 11:25 WBC 6.2 Hgb 14.9 Hct 44.5 Plt Count 266 Sodium 143 Potassium 3.7 Creatinine 0.79 Estimated GFR > 60 Fasting Glucose 125 H Hemoglobin A1c % 6.3 H Calcium 10.0 AST 17 ALT 18 Triglycerides 82 Cholesterol 163 LDL Cholesterol, Calc 91 HDL Cholesterol 56 25-OH Vitamin D Total 48.9 TSH 1.30 Urine pH 6.0 Ur Specific [place] 1.025 Urine Protein Negative Urine Glucose (UA) Negative Urine Blood Negative Urine Nitrite Negative Ur Leukocyte Esterase Negative Microalb/Creat Ratio 8.3 Assessment and Plan Assessment & Plan (1) Pure hypercholesterolemia: Code(s): E78.00 - Pure hypercholesterolemia, unspecified Plan: Results of her labs done back in January 2023 reviewed and discussed with patient - advised that her cholesterol numbers back then have improved significantly from her previous numbers since her Atorvastatin dosage was raised at her prior visit Reinforced low cholesterol diet Continue Atorvastatin 40 mg QD Will recheck her labs and fasting lipids in 4 months for follow up (2) Type 2 diabetes mellitus without complications: Comment: diet controlled Code(s): E11.9 - Type 2 diabetes mellitus without complications Qualifiers: Diabetes mellitus long term care social worker insulin use: without mcfp use Qualified Code(s): E11.9 - Type 2 diabetes mellitus without complications Plan: HgbA1c remained unchanged from previous at 6.3% on her labs done back in January 2023 - goal is < 7.0% Reinforced diabetic diet Continue Metformin ER 500 mg Q PM (3) Benign essential hypertension: Code(s): I10 - Essential (primary) hypertension Plan: Reinforced low sodium diet - goal is systolic BP of around 120 to 130 mm or less Continue Amlodipine 2.5 mg QD and Lisinopril-HCT 20-25 mg QD (4) Palpitations: Comment: Cardiac event monitor done on 07/03/2013 showed baseline sinus rhythm with mild sinus arrhythmia and no other abnormalities Code(s): R00.2 - Palpitations Plan: Continue Metoprolol ER 50 mg daily -? symptoms have remained well controlled on Rx (5) Dizziness: Code(s): R42 - Dizziness and giddiness Plan: Patient is advised that her dizziness may not necessarily be related to her blood pressure and her systolic BP should usually be less than 90 to 100 mm before we can reasonably say that her dizziness is BP-related Have advised her to make sure she takes her BP meds regularly UNLESS her systolic BP is less than 90 mm or it will be hard to keep her BP controlled and elevated BP can also cause dizziness Advised that her dizziness may actually be related to other causes, including ENT as evidenced by her recurrent tinnitus (6) Asthma: Comment: uses daily inhaler, pren rescue inhaler & nebulizer Code(s): J45.909 - Unspecified asthma, uncomplicated Qualifiers: Asthma severity: moderate Asthma persistence: persistent Asthma complication type: uncomplicated Qualified Code(s): J45.40 - Moderate persistent asthma, uncomplicated Plan: Stable Continue Alvesco aerosol inhaler 80 mcg 1 inhalation twice a day and ProAir HFA 2 puffs every 6 hours only as needed - patient states that she hardly has to use her rescue inhaler at all lately (7) Tinnitus of left ear: Code(s): H93.12 - Tinnitus, left ear Plan: Was seen by ENT in [place] recently Patient states that she was advised that her ear exam was normal and was sent for an MRI of the head/ears for further evaluation Follow up with ENT as scheduled (8) Constipation: Code(s): K59.00 - Constipation, unspecified Qualifiers: Constipation type: unspecified constipation type Qualified Code(s): K59.00 - Constipation, unspecified Plan: Encouraged? increased oral fluids and dietary fiber to help control her symptoms -? takes OTC stool softeners as needed with relief Continue Fiber supplements (Citrucel) daily - was started on this by GI Had a normal colonoscopy back in April 2020 Follow up with GI as scheduled (9) Left lumbar pain: Code(s): M54.50 - Low back pain, unspecified Plan: Reinforced activity and weight-lifting restrictions Patient's lumbar spine x-rays done last year came out showing only mild degenerative disc disease with no acute changes Can consider referral to Physical therapy for further evaluation and management if her left lower back pain persists or gets worse (10) Vitamin D deficiency: Code(s): E55.9 - Vitamin D deficiency, unspecified Plan: Continue Vitamin D2 20155 units once a week (11) Insomnia: Code(s): G47.00 - Insomnia, unspecified Qualifiers: Insomnia type: unspecified Qualified Code(s): G47.00 - Insomnia, unspecified Plan: Sleep hygiene reinforced Continue Trazodone 200 mg daily at bedtime as needed Advised that she can also add OTC Melatonin PRN to help her sleep better if she finds that her Trazodone is no longer helping her lately (12) Anxiety: Code(s): F41.9 - Anxiety disorder, unspecified Plan: Continue Lorazepam 0.5 mg 1 to 2 times a day as needed States that Citalopram helps with her anxiety as well (13) Depression: Code(s): F32.9 - Major depressive disorder, single episode, unspecified Qualifiers: Depression Type: major depressive disorder Major depression recurrence: recurrent Active/Remission status: currently active Major depression episode severity: unspecified Qualified Code(s): F33.9 - Major depressive disorder, recurrent, unspecified Plan: Continue Citalopram 40 mg once a day and Mirtazapine 15 mg daily at bedtime Follow-up with Psychiatry as scheduled (14) Overweight (BMI 25.0-29.9): Code(s): E66.3 - Overweight Plan: Reinforced diet/exercise as tolerated/lose weight Plan Follow up in 4 months Orders: Orders Complete Blood Count Auto Diff 4 Months D64.9 - Anemia, unspecified Comprehensive [place]. Panel Fast 4 Months E78.00 - Pure hypercholesterolemia, unspecified Lipid Panel 4 Months E78.00 - Pure hypercholesterolemia, unspecified Microalbumin, Random (w Creat) 4 Months E11.9 - Type 2 diabetes mellitus without complications TSH reflex Free T4 4 Months E78.00 - Pure hypercholesterolemia, unspecified UA CC w/rflx Micro + Cult 4 Months R30.0 - Dysuria Hemoglobin A1c 4 Months E11.9 - Type 2 diabetes mellitus without complications Vitamin D 25-OH Total 4 Months E55.9 - Vitamin D deficiency, unspecified Vitamin B12 and Folate 4 Months E53.8 - Deficiency of other specified B group vitamins Coding Level of Care Code Est Pt Level 4 (66667) Diagnoses Pure hypercholesterolemia E78.00 Type 2 diabetes mellitus without complication, without long-term current use of insulin E11.9 Diabetes mellitus mcfp insulin use: without long term care social worker use Benign essential hypertension I10 Palpitations R00.2 Dizziness R42 Moderate persistent asthma without complication J45.40 Asthma severity: moderate Asthma persistence: persistent Asthma complication type: uncomplicated Tinnitus of left ear H93.12 Constipation, unspecified constipation type K59.00 Constipation type: unspecified constipation type Left lumbar pain M54.50 Vitamin D deficiency E55.9 Insomnia, unspecified type G47.00 Insomnia type: unspecified Anxiety F41.9 Episode of recurrent major depressive disorder, unspecified depression episode severity F33.9 Depression Type: major depressive disorder Major depression recurrence: recurrent Active/Remission status: currently active Major depression episode severity: unspecified Overweight (BMI 25.0-29.9) E66.3
== END 2023-04-21 12:05 | disposition home or self-care (01) ==
PROVIDERS: PCP Internal Medicine; Visit Provider Internal Medicine
DX: E78.00 Pure hypercholesterolemia, unspecified (principal); E11.9 Type 2 diabetes mellitus without complications; F33.9 Major depressive disorder, recurrent, unspecified; R00.2 Palpitations; R42 Dizziness and giddiness; I10 Essential (primary) hypertension; H93.12 Tinnitus, left ear; J45.40 Moderate persistent asthma, uncomplicated; M54.50 Low back pain, unspecified; E55.9 Vitamin D deficiency, unspecified; G47.00 Insomnia, unspecified; F41.9 Anxiety disorder, unspecified
CPT/HCPCS: 99214

== ENCOUNTER 2023-05-03 14:09 | Outpatient (AMB) | payer OTHER, SELFPAY ==
--- NOTE | 2023-05-03 14:25 | A.OFFVIS_ITS ---
Intake Vital Signs 05/03/23 14:27 Height 5 ft 3 in Weight 160 lb 14.999 oz BMI 28.5 Intake Visit Reasons: Ultrasound follow up/urine dip/DO NOT RS Allergies No Known Allergies Allergy (Verified 04/21/23 11:55) HPI HPI Comments History of Present Illness Details The patient is presenting for follow-up ultrasound regarding pelvic pain. GC/CT was negative and urine dip were done last visit showed was negative Pelvic ultrasound done recently showed the following: The uterus is of normal size and echogenicity measuring 6.6 x 3.2 x 3.8 cm. A regular homogeneous endometrium is identified measuring 0.7 cm previously 0.6 cm. Nabothian cysts in the cervix. A 1.4 x 1.3 x 1.1 cm intramural myoma in the anterior body of the uterus is decreased from prior previously 1.8 x 1.7 x 2.3 cm. A second previously seen myoma was not identified today. Both ovaries are of normal size and echogenicity. The right measures 2.8 x 1.6 x 1.9 cm for a volume of 4.5 m L. The left measures 2.5 x 1.5 x 1.6 cm for a volume of 3.1 mL. There is no pelvic free fluid. The patient has pelvic pain has was completely, in no history of vaginal bleeding [facility] Medical History Overweight (BMI 25.0-29.9) Tinnitus of both ears Obesity (BMI 30-39.9) Depression Anxiety Insomnia Vitamin D deficiency Constipation Asthma Palpitations Pure hypercholesterolemia Benign essential hypertension Type 2 diabetes mellitus without complications Surgical History H/O colonoscopy (~04/20/20) History of removal of ovarian cyst History of tubal ligation Family History Father Diabetes Stroke Hypertension Mother Uterine cancer Hypertension Sister No problems noted. Social History Household Members: Children Housing: House Alcohol intake: current Alcohol intake frequency: holidays/special occasions only Alcohol type: wine Patient Tobacco Use Status: Never used Tobacco Tobacco use type: Cigarette e-Cigarette/Vaping Use: Never Used Second Hand Smoke Exposure: No Advance Directives Date on File: 12/04/19 Current occupational status: disabled Sexual orientation: Straight/Heterosexual Gender identity: Female Cognitive needs: No Hearing needs: No Vision needs: No Female Reproductive History Menstrual Age of Menarche: 14 Review of Systems Const All systems reviewed & are unremarkable except as noted in HPI and below Reports as per HPI and Reports no additional complaints GI Reports no additional complaints Reports no additional complaints Physical Exam Vital Signs: BMI result Body Mass Index 28.5 Assessment & Plan Assessment & Plan (1) Thickened endometrium: Comment: On ultrasound Code(s): R93.89 - Abnormal findings on diagnostic imaging of other specified body structures Plan: Discussed with the patient endometrial thickness above 4 mm in menopause , the differential diagnosis of a thickened endometrium includes but not limited to endometrial polyp, hyperplasia or carcinoma. Explained to the patient that endometrial each thickness is less predictive of endometrial neoplasia in asymptomatic Recommended endometrial sampling to rule endometrial pathology via either office endometrial biopsy or diagnostic hysteroscopy/D&C with possible polypectomy/myomectomy. All pros and cons, risks and benefits of each approach were discussed with the patient, the patient decided to proceed with endometrial biopsy. Instructions given the patient to schedule an EMB appointment within 2 weeks. All questions answered, the patient verbalized (2) Pelvic pain: Code(s): R10.2 - Pelvic and perineal pain Plan: Discussed with the patient the following workup done for pelvic pain Urine dip repeat in the office was negative. GC and chlamydia negative, ultrasound was essentially negative except for thickened endometrium. Instructions given the patient to call in case of recurrence of her pelvic pain. All questions answered, the patient verbalized understanding Coding Level of Care Code Est Pt Level 3 (05467) Diagnoses Thickened endometrium R93.89 Pelvic pain R10.2
[2023-05-03 14:27] VITALS: BMI 28.5
== END 2023-05-03 16:13 | disposition home or self-care (01) ==
LOC: HO.HWS 14:09
PROVIDERS: PCP Internal Medicine; Visit Provider Obstetrics & Gynecology
DX: R93.89 Abnormal findings on diagnostic imaging of other specified body structures (principal); R10.2 Pelvic and perineal pain
CPT/HCPCS: 99213

== ENCOUNTER → 2023-05-03 14:09 | Outpatient (BNVA) | payer OTHER, SELFPAY | PROVIDERS: PCP Internal Medicine; Visit Provider Obstetrics & Gynecology | DX: R10.2 Pelvic and perineal pain (principal); R93.89 Abnormal findings on diagnostic imaging of other specified body structures | CPT/HCPCS: 99212 ==

== ENCOUNTER 2023-05-09 13:54 | Outpatient (REF) | payer OTHER, SELFPAY | END 2023-05-09 13:55 | disposition home or self-care (01) | LOC: HO.LNP 13:54 | PROVIDERS: PCP Internal Medicine; Visit Provider Obstetrics & Gynecology | DX: R93.89 Abnormal findings on diagnostic imaging of other specified body structures (principal) | CPT/HCPCS: 58100; 88305 ==

== ENCOUNTER 2023-05-09 13:54 | Outpatient (AMB) | payer OTHER, SELFPAY ==
--- NOTE | 2023-05-09 14:27 | A.OFFVIS_ITS ---
Intake Intake Visit Reasons: EMB Allergies No Known Allergies Allergy (Verified 04/21/23 11:55) HPI HPI Comments History of Present Illness Details Presenting for EMB [facility] Medical History Overweight (BMI 25.0-29.9) Tinnitus of both ears Obesity (BMI 30-39.9) Depression Anxiety Insomnia Vitamin D deficiency Constipation Asthma Palpitations Pure hypercholesterolemia Benign essential hypertension Type 2 diabetes mellitus without complications Surgical History H/O colonoscopy (~04/20/20) History of removal of ovarian cyst History of tubal ligation Family History Father Diabetes Stroke Hypertension Mother Uterine cancer Hypertension Sister No problems noted. Social History Household Members: Children Housing: House Alcohol intake: current Alcohol intake frequency: holidays/special occasions only Alcohol type: wine Patient Tobacco Use Status: Never used Tobacco Tobacco use type: Cigarette e-Cigarette/Vaping Use: Never Used Second Hand Smoke Exposure: No Advance Directives Date on File: 12/04/19 Current occupational status: disabled Sexual orientation: Straight/Heterosexual Gender identity: Female Cognitive needs: No Hearing needs: No Vision needs: No Female Reproductive History Menstrual Age of Menarche: 14 Review of Systems Const All systems reviewed & are unremarkable except as noted in HPI and below Reports as per HPI and Reports no additional complaints GI Reports no additional complaints Reports no additional complaints Office Procedures Endometrial Biopsy Details: The patient was counseled regarding the indication and benefits of endometrial sampling to rule out endometrial pathology including not limited to endometrial hyperplasia or endometrial cancer and others; The alternatives (Either do nothing vs. hysteroscopy D&C) & the risks were discussed with the patient including but not limited: pain, uterine perforation, bleeding, infection, possible injury to bladder, bowel, ureter, possible need for blood transfusion with all its possible risks. The patient verbalized understanding all questions answered and signed consent. The patient was placed into the dorsal lithotomy position; a speculum was inserted in the vagina. Using aseptic technique for the procedure, the cervix was cleansed with Betadine. The anterior lip of the cervix was grasped with a single tooth tenaculum. The uterus was sounded to 7 cm with a 4 mm Pipelle was used. Tissues samples were obtained and placed in formalin, in a patient labeled container and sent to the pathology department. At the end of the procedure, there was minimal bleeding noted The patient tolerated the procedure well and was discharged in good condition with the following instructions: Nothing in the vagina until the bleeding stops. No sex until the bleeding stops, to call if any of the following occurs: fever (>100.4), flu-like symptoms, abdominal pain, heavy bleeding, four smelling vaginal discharge. The patient was instructed to schedule a Follow up appointment in 2 weeks to discuss pathology results of the biopsy and treatment options. This note was generated with a voice recognition program. Some errors may have been overlooked during the review of this note. Sometimes these errors may affect the content or meaning of a given sentence. [id number] Biopsy Assessment & Plan Assessment & Plan (1) Thickened endometrium: Comment: On ultrasound Code(s): R93.89 - Abnormal findings on diagnostic imaging of other specified body structures Plan: EMB done, see procedure note Orders: Orders AMB Endometrial Biopsy Today R93.89 - Abnormal findings on diagnostic imaging of other specified body structures Coding Level of Care Code Procedure Only Diagnoses Thickened endometrium R93.89 CPT Codes Endometrial Biopsy - CPT: 56834-Gieuoctqcqm Biopsy ([id number])
== END 2023-05-09 14:35 | disposition home or self-care (01) ==
PROVIDERS: PCP Internal Medicine; Visit Provider Obstetrics & Gynecology
DX: R93.89 Abnormal findings on diagnostic imaging of other specified body structures (principal)
CPT/HCPCS: 58100

== ENCOUNTER 2023-05-23 09:39 | Outpatient (AMB) | payer OTHER, SELFPAY ==
[2023-05-23 09:49] VITALS: BP 122/76; BMI 28.3
--- NOTE | 2023-05-23 09:49 | A.OFFVIS_ITS ---
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 The patient has no complaints, no vaginal bleeding, no feverishness chills or abdominal pain. Endometrial biopsy pathology showed the following: Endometrium, biopsy: Scant benign atrophic endometrium and fragment of benign endometrial polyp, in a background of abundant blood, mucus, and endocervical glandular and squamous epithelium; no atypia or carcinoma seen [facility] Medical History Overweight (BMI 25.0-29.9) Tinnitus of both ears Obesity (BMI 30-39.9) Depression Anxiety Insomnia Vitamin D deficiency Constipation Asthma Palpitations Pure hypercholesterolemia Benign essential hypertension Type 2 diabetes mellitus without complications Surgical History H/O colonoscopy (~04/20/20) History of removal of ovarian cyst History of tubal ligation Family History Father Diabetes Stroke Hypertension Mother Uterine cancer Hypertension Sister No problems noted. Social History Household Members: Children Housing: House Alcohol intake: current Alcohol intake frequency: holidays/special occasions only Alcohol type: wine Patient Tobacco Use Status: Never used Tobacco Tobacco use type: Cigarette e-Cigarette/Vaping Use: Never Used Second Hand Smoke Exposure: No Advance Directives Date on File: 12/04/19 Patient : No Current occupational status: disabled Sexual orientation: Straight/Heterosexual Gender identity: Female Cognitive needs: No Hearing needs: No Vision needs: No Female Reproductive History Menstrual Age of Menarche: 14 Date of last menstrual period: 12/19/19 control method: permanent sterilization Total pregnancies: 2 Full term: 2 Review of Systems Card Reports as per HPI and Reports no additional complaints Resp Reports as per HPI and Reports no additional complaints GI Reports as per HPI and Reports no additional complaints Reports as per HPI Physical Exam Vital Signs: Last Vital Signs BP 122/76 05/23/23 09:49 BMI result Body Mass Index 28.3 Const General: cooperative, healthy appearing and comfortable Resp Effort & Inspection: normal respiratory effort Auscultation: clear to auscultation bilaterally Percussion: percussion normal Cardio Palpation: normal PMI Rate: regular rate Rhythm: regular rhythm Heart sounds: no murmurs and no rubs Peripheral pulses: Peripheral pulses 2+ throughout GI Inspection: Yes normal to inspection Palpation (GI): Soft to palpation, nontender, no guarding, not rigid and No hepatosplenomegaly present Percussion: Yes normal to percussion Auscultation: normal bowel sounds Rectal Exam - Female: deferred Assessment & Plan Assessment & Plan (1) Thickened endometrium: Comment: On ultrasound with endometrial polyp on EMB pathology Code(s): R93.89 - Abnormal findings on diagnostic imaging of other specified body structures Plan: Discussed with the patient the results of the endometrial biopsy showing benign endometrium with fragments of endometrial polyps, recommended hysteroscopy D&C possible polypectomy/myomectomy. Discussed with the patient the procedure , all benefits and risks including but not limited to inability to complete the procedure , insufficient endometrial tissue for a complete evaluation of the endometrial cavity , bleeding, infection, possible need for blood transfusion with all its risk ( HIV,syphilis, Hepatitis, anaphylaxis shock, others..), injury to bladder, rectum, possible need for laparoscopy/laparotomy or hysterectomy. The patient verbalized understanding and signed the consent. Instructions given the patient to schedule a 2 week postoperative appointment Coding Level of Care Code Est Pt Level 3 (06214) Diagnoses Thickened endometrium R93.89
== END 2023-05-23 10:07 | disposition home or self-care (01) ==
LOC: HO.HWS 09:39
PROVIDERS: PCP Internal Medicine; Visit Provider Obstetrics & Gynecology
DX: R93.89 Abnormal findings on diagnostic imaging of other specified body structures (principal)
CPT/HCPCS: 99213

== ENCOUNTER → 2023-05-23 09:39 | Outpatient (BNVA) | payer OTHER, SELFPAY | PROVIDERS: PCP Internal Medicine; Visit Provider Obstetrics & Gynecology | DX: Z01.818 Encounter for other preprocedural examination (principal); R93.89 Abnormal findings on diagnostic imaging of other specified body structures | CPT/HCPCS: 99212 ==

== ENCOUNTER 2023-06-13 09:31 | Day surgery (SDC) | payer OTHER, SELFPAY ==
[2023-06-13] VITALS (7 sets, daily range): BP systolic 122–160; BP diastolic 65–79; PULSE 64–80; RESP 14–18; TEMP 36.3–36.7; O2SAT 95–98; BMI 26.6
--- NOTE | 2023-06-13 11:40 | HO.ANESPROP2 ---
[facility] Active Problems Active Problems: All Active Problems Thickened endometrium (Acute) Dizziness (Acute) Microscopic hematuria (Acute) Pelvic pain (Acute) Chest pain (Acute) Lateral epicondylitis of left elbow (Acute) Tendinitis of left forearm (Acute) Overweight (BMI 25.0-29.9) (Acute) Urinary frequency (Acute) Well woman exam (Acute) Annual physical exam (Acute) Left lumbar pain (Acute) Tinnitus of left ear (Acute) Adnexal fullness (Acute) Myoma (Acute) Obesity (BMI 30-39.9) (Acute) Depression (Acute) Anxiety (Acute) Insomnia (Acute) Vitamin D deficiency (Acute) Constipation (Acute) Asthma (Acute) Palpitations (Acute) Pure hypercholesterolemia (Acute) Benign essential hypertension (Acute) Type 2 diabetes mellitus without complications (Acute) Past Medical History Medical History Overweight (BMI 25.0-29.9) Tinnitus of both ears Obesity (BMI 30-39.9) Depression Anxiety Insomnia Vitamin D deficiency Constipation Asthma Palpitations Pure hypercholesterolemia Benign essential hypertension Type 2 diabetes mellitus without complications Family History Family History Father Diabetes Stroke Hypertension Mother Uterine cancer Hypertension Sister No problems noted. Surgical History Surgical History H/O colonoscopy (~04/20/20) History of removal of ovarian cyst History of tubal ligation History of Problems with Anesthesia: No Social History Social History Household Members: Children Housing: House Alcohol intake: current Alcohol intake frequency: holidays/special occasions only Alcohol type: wine Patient Tobacco Use Status: Never used Tobacco Tobacco use type: Cigarette e-Cigarette/Vaping Use: Never Used Second Hand Smoke Exposure: No Use of substances other than those prescribed or required for medical reasons: No Are you DNR?: No Advance Directives: No Advance Directives Information Provided: Yes Advance Directives Date on File: 12/04/19 Current occupational status: disabled Sexual orientation: Straight/Heterosexual Gender identity: Female Cognitive needs: No Hearing needs: No Vision needs: No Meds Allergies Allergy/AdvReac Type Severity Reaction Status Date / Time No Known Allergies Allergy Verified 06/13/23 10:53 Home Medications ?Medication ?Instructions ?Recorded ?Confirmed ?Last Taken ?Type cyclobenzaprine 10 mg tablet 10 mg PO TID PRN muscle spasm 12/11/19 06/13/23 Unknown History ciclesonide 80 mcg/actuation 1 puff inhalation BID 12/15/19 06/13/23 Unknown History aerosol inhaler (Alvesco) lorazepam 0.5 mg tablet 0.5 mg PO BID PRN Anxiety 12/15/19 06/13/23 Unknown History albuterol sulfate 2.5 mg/3 mL 2.5 mg continuous nebulization Q6H 03/11/20 06/13/23 Unknown History (0.083 %) solution for nebulization PRN shortness of breath or wheezing Exam Height,Weight and Vital Signs: Height 5 ft 5 in Weight 72.575 kg Last Vital Signs Temp 97.4 F 06/13/23 11:14 Pulse 65 06/13/23 11:14 Resp 16 06/13/23 11:14 BP 160/79 H 06/13/23 11:14 Pulse Ox 98 06/13/23 11:14 O2 Del Method Room Air 06/13/23 11:14 Airway Mallampati Class: II TM Dist: >3cm Neck ROM: Full Loose/Missing/Broken Teeth: No Heart: RRR Lungs: CTA Assessment and Plan Assessment Anesthesia Assessment: Anesthesia Plan Discussed and Chart Reviewed Final Anesthetic Review History of Problems with Anesthesia: No NPO: Yes ASA Class: II Final Preanesthetic Review: Meds/Allgs Chart Reviewed, Consent Obtained/Reviewed and Anes Risks/Benef Reviewed Patient Risk: Low Procedure Risk: Low Anesthetic Plan Anesthetic Plan: MAC: Disposition: Standard PACU
[2023-06-13 12:04] LABS: Glucose, Whole Blood 117 mg/dL (60-115)
--- NOTE | 2023-06-13 12:08 | MHC.SHP ---
Pre-Procedural Eval Section A - 24 Hr Update-Section A only Date of Service: 06/13/23 Section B - Complete if H&P > 30 days Chief Complaint: Abnormal findings on diagnostic imaging of other Allergies: Allergies Allergy/AdvReac Type Severity Reaction Status Date / Time No Known Allergies Allergy Verified 06/13/23 10:53 Plan I have reviewed the history and physical and performed a pertinent physical examination on my patient. No changes have occurred unless specified. Time Spent With Patient Time: Total time managing care of this patient today ____ minutes.
--- NOTE | 2023-06-13 12:58 | PM.OP ---
Brief Operative Note Date of Service: 06/13/23 Pre-op diagnosis: Thickened endometrium by ultrasound endometrial polyp on EMB pathology Post-op diagnosis: same (Three endometrial polyps) Procedure: Hysteroscopy D&C, Polypectomies Surgeon: Lucio Morales MD Anesthesia: GLMA Was an Cigarette And Filter Chief Inspector used for this Procedure?: No Estimated blood loss (mL): 0 Pathology: other (Endometrial Scrapping. Polyps) Condition: stable Disposition: PACU
--- NOTE | 2023-06-13 13:00 | P.OP_ITS ---
Operative Note Operative Note Date of Service: 06/13/23 Narrative: Preop Diagnosis: Thickened endometrium by ultrasound and Endometrial polyp on EMB pathology Operation: Diagnostic Hysteroscopy, Dilataion & Curettage and polypectomy Post Op Diagnosis: 3 Endometrial Polyps QBL: Minimal Anesthesia: GLMA Surgeon: Lucio Morales MD Dental Internship: None Complication: None Pathology: Endometrial Scrapings, Endometrial polyps Procedure: The patient was put in the dorsal lithotomy position, scrubbed, and draped in the usual manner. A sterile speculum was inserted in the patient's vagina. The anterior lip of the cervix was grasped with a single tooth tenaculum. The cervix was dilated up to 5 mm, then the scope was inserted in the patient's uterus. Inspection revealed 3 endometrial polyps. The Myosure Reach device was used; it was introduced through the operative channel and polypectomies done with no complications. The scope was then taken out from the uterine cavity, sharp curettings was carried on with minimal to moderate amount of tissues retrieved. At the end of the procedure, all instruments were taken out of the patient uterine and vaginal cavity. The single tooth tenaculum was removed and homeostasis was assured using pressure,. The patient tolerated the procedure well and was transferred to the PACU in a stable condition.
[2023-06-13] MEDS: Acetaminophen 325 MG TABLET 650 MG PO (13:19)
== END 2023-06-13 14:36 | disposition home or self-care (01) ==
PROVIDERS: PCP Internal Medicine; Visit Provider Obstetrics & Gynecology
PROC: 0UDB8ZZ Extraction of Endometrium, Via Natural or Artificial Opening Endoscopic (ICD-10-PCS; CPT 58558; principal; 2023-06-13 12:00)
DX: N84.0 Polyp of corpus uteri (principal); Z98.51 Tubal ligation status; I10 Essential (primary) hypertension; E11.9 Type 2 diabetes mellitus without complications; E78.00 Pure hypercholesterolemia, unspecified; J45.909 Unspecified asthma, uncomplicated; E55.9 Vitamin D deficiency, unspecified; F32.A Depression, unspecified; E66.3 Overweight; Z68.28 Body mass index [BMI] 28.0-28.9, adult; Z79.899 Other long term (current) drug therapy
CPT/HCPCS: 58558; 82947; 88305; J1100; J1885; J2250; J2405; J2704; J3010

== ENCOUNTER → 2023-06-13 09:31 | Outpatient (BNV) | payer OTHER, SELFPAY | PROVIDERS: PCP Internal Medicine; Visit Provider Obstetrics & Gynecology | DX: N84.0 Polyp of corpus uteri (principal); R93.89 Abnormal findings on diagnostic imaging of other specified body structures | CPT/HCPCS: 58558 ==

== ENCOUNTER 2023-06-29 15:12 | Outpatient (AMB) | payer OTHER, SELFPAY ==
[2023-06-29 15:37] VITALS: BP 130/70; BMI 26.6
--- NOTE | 2023-06-29 15:37 | MHC.OFFVIS ---
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 The pathology showed the following: A. Endometrium, 3 polyps, resection: Benign endometrial polyps with cysts, multiple fragments; no atypia or carcinoma. B. Endometrium, curettage: Scant benign inactive endometrium, fragments consistent with benign endometrial polyps, and benign endocervical and squamous epithelium; no atypia or carcinoma PFS Medical History Overweight (BMI 25.0-29.9) Tinnitus of both ears Obesity (BMI 30-39.9) Depression Anxiety Insomnia Vitamin D deficiency Constipation Asthma Palpitations Pure hypercholesterolemia Benign essential hypertension Type 2 diabetes mellitus without complications Surgical History H/O colonoscopy (~04/20/20) History of removal of ovarian cyst History of tubal ligation Family History Father Diabetes Stroke Hypertension Mother Uterine cancer Hypertension Sister No problems noted. Social History Household Members: Children Housing: House Alcohol intake: current Alcohol intake frequency: holidays/special occasions only Alcohol type: wine Patient Tobacco Use Status: Never used Tobacco Tobacco use type: Cigarette e-Cigarette/Vaping Use: Never Used Second Hand Smoke Exposure: No Advance Directives Date on File: 12/04/19 Patient : No Current occupational status: disabled Sexual orientation: Straight/Heterosexual Gender identity: Female Cognitive needs: No Hearing needs: No Vision needs: No Female Reproductive History Menstrual Age of Menarche: 14 control method: permanent sterilization Review of Systems Const All systems reviewed & are unremarkable except as noted in HPI and below Card Reports as per HPI Resp Reports as per HPI GI Reports as per HPI and Reports no additional complaints Reports as per HPI Physical Exam Vital Signs: Last Vital Signs BP 130/70 06/29/23 15:37 BMI result Body Mass Index 26.6 Const General: cooperative, healthy appearing and comfortable Chest Chest palpation & inspection: normal inspection of the chest and normal palpation of entire chest wall Breast/axilla inspection: normal inspection of the breasts and normal inspection of the axillae Breast/axilla palpation: normal palpation of the breasts, normal palpation of the axillae and no axillary lymphadenopathy Resp Effort & Inspection: normal respiratory effort Auscultation: clear to auscultation bilaterally Percussion: percussion normal Cardio Palpation: normal PMI Rate: regular rate Rhythm: regular rhythm Heart sounds: no murmurs and no rubs Peripheral pulses: Peripheral pulses 2+ throughout GI Inspection: Yes normal to inspection Palpation (GI): Soft to palpation, nontender, no guarding, not rigid and No hepatosplenomegaly present Percussion: Yes normal to percussion Auscultation: normal bowel sounds Rectal Exam - Female: deferred General: Yes bladder normal to palpation External Female Exam: No lesion Speculum Exam - Vagina: normal appearance of the vagina, normal palpation, normal vaginal discharge and not erythematous Speculum Exam - Cervix: normal appearance of the cervix and normal palpation Bimanual exam- vagina & uterus: normal bimanual exam, normal palpation, uterine size normal, bladder normal to palpation, consistency normal and normal palpation Bimanual Exam- Adnexa, other: normal adnexae, no masses and no tenderness Assessment & Plan Assessment & Plan (1) Thickened endometrium: Comment: 3 endometrial polyps status post hysteroscopic polypectomy Code(s): R93.89 - Abnormal findings on diagnostic imaging of other specified body structures Category: Medical Plan: Discussed with the patient the intraoperative findings, 3 endometrial polyps with the pathology results, the patient was reassured. Instructions given the patient to call in case of pelvic cramping and or vaginal bleeding, fever above 100.4, any other concerns. All questions answered, the patient verbalized understanding Coding Level of Care Code Est Pt Level 3 (89132) Diagnoses Thickened endometrium R93.89
== END 2023-06-29 15:44 | disposition home or self-care (01) ==
PROVIDERS: PCP Internal Medicine; Visit Provider Obstetrics & Gynecology
DX: R93.89 Abnormal findings on diagnostic imaging of other specified body structures (principal)
CPT/HCPCS: 99213

== ENCOUNTER → 2023-06-29 15:12 | Outpatient (BNVA) | payer OTHER, SELFPAY | PROVIDERS: PCP Internal Medicine; Visit Provider Obstetrics & Gynecology | DX: R93.89 Abnormal findings on diagnostic imaging of other specified body structures (principal) | CPT/HCPCS: 99212 ==

== ENCOUNTER 2023-08-23 11:02 | Outpatient (REF) | payer OTHER, SELFPAY ==
[2023-08-23 12:40] LABS: MANUAL DIFF FLAG NO
[2023-08-23 12:45] LABS: Basophils Percent Auto 0.5 % (0-2); Eosinophils Absolute Auto 0.1 X10*3/uL (0.0-0.4); Eosinophils Percent Auto 1.8 % (0-4); Hemoglobin 14.6 g/dl (12.0-16.0); Imm Gran Abs Auto 0.02 X10*3/uL (0.00-0.03); Imm Gran Pct Auto 0.3 % (0.0-0.4); Lymphocytes Absolute Auto 2.3 X10*3/uL (1.2-4.9); Lymphocytes Percent Auto 37.3 % (20-40); Mean Corpuscular HGB Conc 34.8 g/dl (31.0-35.0); Mean Corpuscular Volume 89.2 fL (80.0-98.0); Mean Platelet Volume 9.6 fL (9.4-12.3); Monocytes Absolute Auto 0.5 X10*3/uL (0.1-1.2); Monocytes Percent Auto 7.6 % (2-11); Neutrophils Absolute Auto 3.2 x10*3/uL (2.0-8.3); Neutrophils Percent Auto 52.5 % (45-73); Platelet Count 242 X10*3/uL (160-400); Red Blood Count 4.71 X10*6/uL (4.20-5.50); Red Cell Distribution Width 12.5 % (11.0-16.0); White Blood Count 6.1 X10*3/uL (4.8-10.8)
[2023-08-23 12:51] LABS: Estimated Average Glucose 134 mg/dL; Hemoglobin A1c % 6.3 % (<6.0)
[2023-08-23 13:02] LABS: Alanine Aminotransferase 20 U/L (0-31); Albumin Level 4.5 g/dL (3.5-5.0); Alkaline Phosphatase 88 U/L (39-117); Anion Gap 11 (12-20); Aspartate Amino Transferase 20 U/L (5-31); Bilirubin Total 0.7 mg/dL (0.0-1.0); Blood Urea Nitrogen 14 mg/dL (9-16); Calcium 10.2 mg/dL (8.4-10.2); Carbon Dioxide 29 mmol/L (22-29); Chloride 102 mmol/L (96-108); Cholesterol 155 mg/dL (<200); Estimated Glomerular Filt Rate > 60; Glucose Fasting 120 mg/dL (60-99); HDL Cholesterol 56 mg/dL (>40); LDL Cholesterol Calculated 85 mg/dL (<100); Potassium 3.7 mmol/L (3.3-5.1); Sodium 138 mmol/L (135-145); Total Protein 7.8 g/dL (6.5-8.0); Triglycerides 73 mg/dL (<150)
[2023-08-23 13:16] LABS: TSH reflex Free T4 1.32 uIU/mL (0.32-4.0); Vitamin D 25-OH Total 47.5 ng/mL (>30)
[2023-08-23 13:29] LABS: Appearance Urine Clear; Color Urine Yellow; Glucose Urine UA Negative (Negative); Leukocyte Esterase Urine Negative (Negative); Nitrite Urine Negative (Negative); Specific Gravity - Urine 1.025 (1.005-1.025); Urine Blood Negative (Negative); Urine Ketones Negative (Negative); Urine Protein Negative (Neg-Trace)
[2023-08-23 13:31] LABS: Folate 6.1 ng/mL (> or = 4.0); Vitamin B12 707 pg/mL (200-900)
[2023-08-23 14:01] LABS: Creatinine Urine 188.73 mg/dL; Microalbum/Creatinine Ratio Ur 5.8 ug/mg cr (<30)
== END 2023-08-23 11:03 | disposition home or self-care (01) ==
LOC: HO.10HDL 11:02
PROVIDERS: Visit Provider Internal Medicine
DX: E78.00 Pure hypercholesterolemia, unspecified (principal); E11.9 Type 2 diabetes mellitus without complications; E55.9 Vitamin D deficiency, unspecified; D64.9 Anemia, unspecified; R30.0 Dysuria; E53.8 Deficiency of other specified B group vitamins
CPT/HCPCS: 36415; 80053; 80061; 81003; 82043; 82306; 82570; 82607; 82746; 83036; 84443; 85025

== ENCOUNTER 2023-12-05 12:51 | Outpatient (REF) | payer OTHER, SELFPAY ==
--- NOTE | ~2023-12-05 | MM_ITS ---
EXAMINATION: MM SCREENING DIGITAL BREAST TOMOSYNTHESIS, BILATERAL CLINICAL INFORMATION: Screening. Asymptomatic. COMPARISON: Mammography: Comparison is made with available priors TECHNIQUE: Digital breast mammography with tomosynthesis is performed in both the craniocaudal and mediolateral oblique views along with computer-aided detection (CAD). FINDINGS: The breasts are heterogeneously dense, which may obscure small masses (ACR BI-RADS breast composition Category c). There are no significant masses, abnormal calcifications, or other abnormalities. MM/MM tomosynthesis screening BI IMPRESSION: No mammographic evidence of malignancy. ASSESSMENT: BI-RADS BI-RADS 1 - Negative RECOMMENDATION: Routine annual mammography screening. 1 year F/U This examination should not preclude the clinical evaluation of a suspicious palpable abnormality. This patient's information was entered into a reminder system with a target due date for their next mammogram. Electronically signed by: Margarita Kaufman DO 12/18/2023 05:22 PM EDT
== END 2023-12-05 12:52 | disposition home or self-care (01) ==
LOC: HO.MAMMO 12:51
PROVIDERS: PCP Internal Medicine; Visit Provider Internal Medicine
DX: Z12.31 Encounter for screening mammogram for malignant neoplasm of breast (principal)
CPT/HCPCS: 77063; 77067

== ENCOUNTER → 2023-12-05 13:00 | Outpatient (BNV) | payer OTHER, SELFPAY | PROVIDERS: PCP Internal Medicine; Visit Provider Internal Medicine | DX: Z12.31 Encounter for screening mammogram for malignant neoplasm of breast (principal) | CPT/HCPCS: 77063; 77067 ==

== ENCOUNTER 2023-12-22 15:57 | Outpatient (AMB) | payer OTHER, SELFPAY ==
--- NOTE | 2023-12-22 16:00 | A.OFFPC_ITS ---
Vital Signs 12/22/23 16:01 Height 5 ft 5 in Weight 158 lb BMI 26.3 BP 128/72 Blood Pressure Location Lt brachial Position Sitting Pulse 78 Pulse Source Pulse Oximeter Pulse Oximetry (%) 95 Oxygen Delivery Method Room Air Intake Visit Reasons: DM, HTN, hyperlipidemia, depression Cash Applications Coordinator Required: No Accompanied by: Self / Same As Patient Allergies No Known Allergies Allergy (Verified 12/22/23 16:35) Medication List - Last Reconciled 12/22/23 by Moisés Santos MD albuterol sulfate 2.5 mg continuous nebulization Q6H PRN albuterol sulfate 2.5 mg (0.5 mL) inhalation Q6H PRN albuterol sulfate 90 mcg/actuation 1 inh inhalation Q4-6H PRN albuterol sulfate 90 mcg/actuation 2 puffs inhalation Q6H PRN amlodipine 2.5 mg PO DAILY 90 days atorvastatin 40 mg PO DAILY 90 days ciclesonide 80 mcg/actuation (Alvesco) 1 puff inhalation BID citalopram 40 mg PO DAILY 90 days cyclobenzaprine 10 mg PO TID PRN docusate sodium 100 mg PO DAILY PRN 30 days ergocalciferol (vitamin D2) 1,250 mcg PO QWEEK 90 days lisinopril-hydrochlorothiazide 20-25 mg 1 tab PO DAILY 90 days lorazepam 0.5 mg PO BID PRN meloxicam 15 mg PO DAILY metformin ER 500 mg PO QPM 90 days methylcellulose (laxative) (Citrucel) 500 mg PO DAILY metoprolol succinate ER 50 mg PO DAILY 90 days mirtazapine 15 mg PO BEDTIME 90 days trazodone 200 mg (2 x 100 mg) PO BEDTIME PRN 30 days Tobacco use date assessed: 04/21/23 Fall risk assessment: No Falls in past year Last assessed Fall Risk: 12/22/23 Dental Screening Dental Screen Date: 04/21/23 HPI DM, HTN, hyperlipidemia, depression HPI Details Patient comes in today for her follow-up visit States that she missed her appointment back in August 2023 as she was sick at the time and as a result, she has no follow-up labs ordered for this visit although she did have her labs done back in August and she would like to know how they came out States that she currently feels okay except for some on and off sensation of queasiness in her stomach, which she thinks may be due to the effects of metformin she would notice the symptoms more often after she takes her metformin Rx She denies any headaches or dizziness Denies any chest pains, no shortness of breath No nausea/vomiting, no abdominal pain No change in bowel habits noted Needs her Docusate Rx refilled She would also like to get her flu shot today [facility] Medical History (Updated 12/23/23 @ 04:40 by Moisés Santos MD) Overweight (BMI 25.0-29.9) Tinnitus of both ears Depression Anxiety Insomnia Vitamin D deficiency Constipation Asthma Palpitations Pure hypercholesterolemia Benign essential hypertension Type 2 diabetes mellitus without complications Surgical History H/O colonoscopy (~04/20/20) History of removal of ovarian cyst History of tubal ligation Family History Father Diabetes Stroke Hypertension Mother Uterine cancer Hypertension Sister No problems noted. Social History Household Members: Children Housing: House Alcohol intake: current Alcohol intake frequency: holidays/special occasions only Alcohol type: wine Patient Tobacco Use Status: Never used Tobacco Tobacco use type: Cigarette e-Cigarette/Vaping Use: Never Used Second Hand Smoke Exposure: No Advance Directives Date on File: 12/04/19 Current occupational status: disabled Sexual orientation: Straight/Heterosexual Gender identity: Female Cognitive needs: No Hearing needs: No Vision needs: No Female Reproductive History Menstrual Age of Menarche: 14 Questionnaire Thrive Questionnaire Date Thrive assessed: 04/21/23 CRISTHIAN-7 AMB Questionnaire CRISTHIAN-7 Date CRISTHIAN - 7 assessed: 04/21/23 Source: Developed by Drs. Kvng Pearson, Janae Peralta, Wm Reyes and colleagues, with an educational dali from [employer]. Review of Systems Const Denies chills, Denies fatigue, Denies fever(s), Denies headache(s) and Denies malaise Eyes Denies blurry vision, Denies change in vision, Denies irritation and Denies itchy eyes ENT Denies dysphagia, Denies dizziness, Denies otalgia, Denies headache(s), Denies nasal congestion, Denies neck pain, Denies odynophagia, Denies sinus pain and Denies sore throat Card Denies chest pain, Denies rapid heart rate, Denies irregular heart rhythm, Denies palpitations and Denies dyspnea Resp Denies chest congestion, Denies cough, Denies dyspnea and Denies wheezing GI Denies abdominal pain, Denies bloating, Denies constipation, Denies dysphagia, Denies heartburn, Denies diarrhea, Denies nausea, Denies odynophagia and Denies vomiting Denies hematuria, Denies urinary frequency, Denies dysuria, Denies urinary incontinence and Denies urinary urgency Musc Denies back pain, Denies arthralgias, Denies joint swelling, Denies muscle weakness and Denies neck pain Skin/Breast Denies breast pain, Denies breast mass, Denies change in pigmentation, Denies lesions, Denies rash and Denies unusual bruising Neuro Denies dizziness, Denies headache(s) and Denies paresthesias Psych Denies anxiety and Denies depression Endo Denies fatigue and Denies palpitations Harry/Lymph Denies easy bruising Aller/Immun Denies itchy eyes and Denies wheezing Physical exam (Primary Care) Vital Signs: Last Vital Signs Pulse 78 12/22/23 16:01 BP 128/72 12/22/23 16:01 Pulse Ox 95 12/22/23 16:01 Oxygen Delivery Method Room Air 12/22/23 16:01 BMI result Body Mass Index 26.3 Tobacco/Smoking Status: Tobacco use Status Tobacco use date assessed 04/21/23 12/22/23 16:02 Patient Tobacco Use Status Never used Tobacco 12/22/23 16:02 Tobacco use type Cigarette 12/22/23 16:02 e-Cigarette/Vaping Use Never Used 12/22/23 16:02 Thrive Assessment: Date of Thrive Assessment Date Thrive assessed 04/21/23 12/22/23 16:02 Const General: no acute distress, alert and awake Orientation/consciousness: patient oriented x3 HENMT Head: Yes normocephalic and Yes atraumatic Ears: external ears normal, TM's normal bilaterally and EAC's normal General nose exam: No nasal discharge present Face and sinus: Yes normal facial exam and Yes sinuses nontender Teeth and gingiva: dentition normal Throat: Yes posterior oropharynx normal and Yes tonsils normal (no TP congestion) Eyes Eyelids: Yes eyelids normal Conjunctivae: conjunctivae normal Pupils: Equal, round and reactive pupils present EOM: EOMs intact bilaterally Neck Neck: Yes no lymphadenopathy and Yes supple Thyroid: Thyroid normal Resp Auscultation: clear to auscultation bilaterally, no rales and no wheezes Cardio Rate: regular rate Rhythm: regular rhythm Heart sounds: no murmurs GI Palpation (GI): Soft to palpation, nontender and No hepatosplenomegaly present Auscultation: normal bowel sounds General: Yes no CVA tenderness Back/Spine/Pelvis Back: no CVA tenderness Thoracic/Lumbar Spine: thoracic and lumbar spine normal to inspection Skin Lesions: no lesions Rashes: no rashes Neuro General: patient oriented x3, moves all extremities, no focal motor deficits and CN's II-XI intact bilaterally Cranial nerves: Yes Equal, round and reactive pupils present Cognition (Neuro): normal cognition Gait exam (Neuro): Normal gait present Extrem General: Yes no clubbing, cyanosis or edema Office Procedures Flu Questionnaire Does the patient have a severe egg allergy?: No Does the patient have severe life threatening allergies?: No Does the patient have a fever or illness today?: No Has the patient ever had Guillain-Willington Syndrome?: No Has the patient ever had any past reaction to a flu shot?: No Results AMB Hemoglobin A1c AMB Hemoglobin A1c 6.6 % Last Edit by Leydi Virk CMA on 12/22/23 16:17 Immunizations Fluarix Triv [id number] (PF) 45 mcg (15 mcg x 3)/0.5 mL IM syringe Performing Provider: Moisés Santos MD [facility] Administered by: Dilcia Moon LPN on 12/22/23 16:18 Dose Route Admin Location Dispensed Lot Number Expiration Date [facility] Environmental Remediation Consultant 0.5 mL IM Left Deltoid 0.5 mL [id number] 08/19/24 59136-602-72 Foody VIS Given Date VIS Provided VIS Publication Date 12/22/23 Single Vaccine 20 Eligibility Eligibility Date Funding Source Not [facility] Eligible 12/22/23 Private Results Reviewed Results Reviewed: Laboratory Last Values Hgb A1c (Clinic) 6.6 % (4.0-6.0) H 12/22/23 16:09 Laboratory Tests 08/23/23 11:05 WBC 6.1 Hgb 14.6 Hct 42.0 Plt Count 242 Sodium 138 Potassium 3.7 Creatinine 0.78 Estimated GFR > 60 Fasting Glucose 120 H Hemoglobin A1c % 6.3 H Calcium 10.2 AST 20 ALT 20 Triglycerides 73 Cholesterol 155 LDL Cholesterol, Calc 85 HDL Cholesterol 56 Vitamin B12 707 25-OH Vitamin D Total 47.5 TSH 1.32 Ur Specific Claude 1.025 Urine Protein Negative Urine Glucose (UA) Negative Urine Blood Negative Urine Nitrite Negative Ur Leukocyte Esterase Negative Microalb/Creat Ratio 5.8 Coding Level of Care Code Est Pt Level 4 (79045) Complex EM visit Add On G2211 Diagnoses Type 2 diabetes mellitus without complication, without long-term current use of insulin E11.9 Diabetes mellitus fpc insulin use: without fpc use Pure hypercholesterolemia E78.00 Benign essential hypertension I10 Moderate persistent asthma without complication J45.40 Asthma severity: moderate Asthma persistence: persistent Asthma complication type: uncomplicated Constipation, unspecified constipation type K59.00 Constipation type: unspecified constipation type Vitamin D deficiency E55.9 Tinnitus of left ear H93.12 Insomnia, unspecified type G47.00 Insomnia type: unspecified Anxiety F41.9 Episode of recurrent major depressive disorder, unspecified depression episode s everity F33.9 Depression Type: major depressive disorder Major depression recurrence: recurrent Active/Remission status: currently active Major depression episode severity: unspecified Overweight (BMI 25.0-29.9) E66.3 Assessment & Plan Assessment & Plan (1) Type 2 diabetes mellitus without complications: Comment: diet controlled Code(s): E11.9 - Type 2 diabetes mellitus without complications Category: Medical Qualifiers: 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 use: without long chain dyeing machine operator use Qualified Code(s): E11.9 - Type 2 diabetes mellitus without complications Plan: Her in-office HgbA1c today is at 6.6% (HgbA1c was at 6.3% when previously checked in August 2023) - goal is ideally <6.5% Reinforced diabetic diet Continue Metformin ER 500 mg Q PM (2) Pure hypercholesterolemia: Code(s): E78.00 - Pure hypercholesterolemia, unspecified Category: Medical Plan: Patient does not have any recent follow up labs although she did get them done back in August 2023 - the results of these labs are reviewed and discussed with patient today Reinforced low cholesterol diet Continue Atorvastatin 40 mg QD Will recheck her labs and fasting lipids in 4 months for follow up (3) Benign essential hypertension: Code(s): I10 - Essential (primary) hypertension Category: Medical Plan: Reinforced low sodium diet - goal is systolic BP of around 120 to 130 mm or less Continue Amlodipine 2.5 mg QD and Lisinopril-HCT 20-25 mg QD (4) Asthma: Comment: uses daily inhaler, pren rescue inhaler & nebulizer Code(s): J45.909 - Unspecified asthma, uncomplicated Category: Medical Qualifiers: Asthma severity: moderate Asthma persistence: persistent Asthma complication type: uncomplicated Qualified Code(s): J45.40 - Moderate persistent asthma, uncomplicated Plan: Stable / controlled Continue Alvesco aerosol inhaler 80 mcg 1 inhalation twice a day and ProAir HFA 2 puffs every 6 hours only as needed - patient states that she hardly has to use her rescue inhaler (5) Constipation: Code(s): K59.00 - Constipation, unspecified Category: Medical Qualifiers: Constipation type: unspecified constipation type Qualified Code(s): K59.00 - Constipation, unspecified Plan: Patient is again encouraged on? increased oral fluids and dietary fiber to help control her symptoms Continue Fiber supplements (Citrucel) daily - she was started on this by GI Continue Docusate 100 mg QD PRN - Rx refilled She had a normal colonoscopy back in April 2020 Follow up with GI as scheduled (6) Vitamin D deficiency: Code(s): E55.9 - Vitamin D deficiency, unspecified Category: Medical Plan: Continue Vitamin D2 93705 units once a week (7) Tinnitus of left ear: Code(s): H93.12 - Tinnitus, left ear Category: Medical Plan: She was seen by ENT in [place] earlier this year and was reportedly advised that her ear exam was normal She was sent for an MRI of the head/ears for further evaluation - these reportedly came out okay Follow up with ENT as scheduled (8) Insomnia: Code(s): G47.00 - Insomnia, unspecified Category: Medical Qualifiers: Insomnia type: unspecified Qualified Code(s): G47.00 - Insomnia, unspecified Plan: Sleep hygiene reinforced Continue Trazodone 200 mg daily at bedtime as needed She has been advised that she can also add OTC Melatonin PRN to help her sleep better if she finds that Trazodone is not helping as much (9) Anxiety: Code(s): F41.9 - Anxiety disorder, unspecified Category: Medical Plan: Continue Lorazepam 0.5 mg 1 to 2 times a day as needed States that Citalopram helps with her anxiety as well (10) Depression: Code(s): F32.9 - Major depressive disorder, single episode, unspecified Category: Medical Qualifiers: Depression Type: major depressive disorder Major depression recurrence: recurrent Active/Remission status: currently active Major depression episode severity: unspecified Qualified Code(s): F33.9 - Major depressive disorder, recurrent, unspecified Plan: Continue Citalopram 40 mg once a day and Mirtazapine 15 mg daily at bedtime Follow-up with Psychiatry as scheduled (11) Overweight (BMI 25.0-29.9): Code(s): E66.3 - Overweight Category: Medical Plan: Reinforced diet/exercise as tolerated/lose weight Plan As requested, flu vaccine given to patient today Follow up in 4 months Orders: Orders AMB Hemoglobin A1c 12/22/23 E11.9 - Type 2 diabetes mellitus without complications Influenza [id number] Immunization 12/22/23 Z23 - Encounter for immunization Lipid Panel 4 Months E78.00 - Pure hypercholesterolemia, unspecified Comprehensive [place]. Panel Fast 4 Months E78.00 - Pure hypercholesterolemia, unspecified Hemoglobin A1c 4 Months E11.9 - Type 2 diabetes mellitus without complications TSH reflex Free T4 4 Months E78.00 - Pure hypercholesterolemia, unspecified Microalbumin, Random (w Creat) 4 Months E11.9 - Type 2 diabetes mellitus without complications UA CC w/rflx Micro + Cult 4 Months R30.0 - Dysuria Vitamin D 25-OH Total 4 Months E55.9 - Vitamin D deficiency, unspecified Complete Blood Count Auto Diff 4 Months D64.9 - Anemia, unspecified Medications: Refilled docusate sodium 100 mg PO DAILY 30 days PRN 30 caps 1RF constipation K59.00 - Constipation, unspecified
[2023-12-22 16:01] VITALS: BP 128/72; PULSE 78; O2SAT 95; BMI 26.3
== END 2023-12-22 16:40 | disposition home or self-care (01) ==
LOC: HO.HMCH 15:58
PROVIDERS: PCP Internal Medicine; Visit Provider Internal Medicine
DX: E11.9 Type 2 diabetes mellitus without complications (principal); E78.00 Pure hypercholesterolemia, unspecified; I10 Essential (primary) hypertension; J45.40 Moderate persistent asthma, uncomplicated; K59.00 Constipation, unspecified; E55.9 Vitamin D deficiency, unspecified; H93.12 Tinnitus, left ear; G47.00 Insomnia, unspecified; F41.9 Anxiety disorder, unspecified; F33.9 Major depressive disorder, recurrent, unspecified; E66.3 Overweight

== ENCOUNTER → 2023-12-22 15:57 | Outpatient (BNVA) | payer OTHER, SELFPAY | PROVIDERS: PCP Internal Medicine; Visit Provider Internal Medicine | DX: Z23 Encounter for immunization (principal); E11.9 Type 2 diabetes mellitus without complications; E78.00 Pure hypercholesterolemia, unspecified; I10 Essential (primary) hypertension; J45.40 Moderate persistent asthma, uncomplicated; K59.00 Constipation, unspecified; E55.9 Vitamin D deficiency, unspecified; H93.12 Tinnitus, left ear; G47.00 Insomnia, unspecified; F41.9 Anxiety disorder, unspecified; F33.9 Major depressive disorder, recurrent, unspecified | CPT/HCPCS: 83036; 90471; 90656; 99212 ==

== ENCOUNTER 2024-02-26 14:37 | Outpatient (AMB) | payer OTHER, SELFPAY ==
--- NOTE | 2024-02-26 14:40 | MHC.OFFVIS ---
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 No complaints. Last Pap/HPV was negative in 03/10 Last Mammogram was BI-RADS 1 in 12/13 Last Colonoscopy was 5 years ago, according to the patient she will be due for next screening colonoscopy in 5 years [facility] Medical History Overweight (BMI 25.0-29.9) Tinnitus of both ears Depression Anxiety Insomnia Vitamin D deficiency Constipation Asthma Palpitations Pure hypercholesterolemia Benign essential hypertension Type 2 diabetes mellitus without complications Surgical History H/O colonoscopy (~04/20/20) History of removal of ovarian cyst History of tubal ligation Family History Father Diabetes Stroke Hypertension Mother Uterine cancer Hypertension Sister No problems noted. Social History Household Members: Children Housing: House Alcohol intake: current Alcohol intake frequency: holidays/special occasions only Alcohol type: wine Patient Tobacco Use Status: Never used Tobacco Tobacco use type: Cigarette e-Cigarette/Vaping Use: Never Used Second Hand Smoke Exposure: No Advance Directives Date on File: 12/04/19 Current occupational status: disabled Sexual orientation: Straight/Heterosexual Gender identity: Female Cognitive needs: No Hearing needs: No Vision needs: No Female Reproductive History Menstrual Age of Menarche: 14 Total pregnancies: 4 Full term: 4 Date of Mammogram: 12/05/23 (bi rad 1) Review of Systems Const All systems reviewed & are unremarkable except as noted in HPI and below Card Reports as per HPI Resp Reports as per HPI GI Reports as per HPI and Reports no additional complaints Reports as per HPI Physical Exam Vital Signs: Last Vital Signs BP 126/72 02/26/24 14:44 BMI result Body Mass Index 26.3 Const General: cooperative, healthy appearing and comfortable Chest Chest palpation & inspection: normal inspection of the chest and normal palpation of entire chest wall Breast/axilla inspection: normal inspection of the breasts and normal inspection of the axillae Breast/axilla palpation: normal palpation of the breasts, normal palpation of the axillae and no axillary lymphadenopathy Resp Effort & Inspection: normal respiratory effort Auscultation: clear to auscultation bilaterally Percussion: percussion normal Cardio Palpation: normal PMI Rate: regular rate Rhythm: regular rhythm Heart sounds: no murmurs and no rubs Peripheral pulses: Peripheral pulses 2+ throughout GI Inspection: Yes normal to inspection Palpation (GI): Soft to palpation, nontender, no guarding, not rigid and No hepatosplenomegaly present Percussion: Yes normal to percussion Auscultation: normal bowel sounds Rectal Exam - Female: deferred General: Yes bladder normal to palpation External Female Exam: No lesion Speculum Exam - Vagina: normal appearance of the vagina, normal palpation, normal vaginal discharge and not erythematous Speculum Exam - Cervix: normal appearance of the cervix and normal palpation Bimanual exam- vagina & uterus: normal bimanual exam, normal palpation, uterine size normal, bladder normal to palpation, consistency normal and normal palpation Bimanual Exam- Adnexa, other: normal adnexae, no masses and no tenderness Assessment & Plan Assessment & Plan (1) Well woman exam: Code(s): Z01.419 - Encounter for gynecological examination (general) (routine) without abnormal findings Category: Medical Plan: Co testing done. Counseled the patient about the recommended dietary allowance of 1200 mg of Calcium & 600 IU of vitamin D. Instructions given the patient to schedule next screen Mammogram in 12/14. The patient was instructed to perform monthly self-breast exams and schedule annual exam in a year. All questions answered and the patient verbalized understanding. Coding Level of Care Code Est Pt Prev Care 40-64y(57369) Diagnoses Well woman exam Z01.419
[2024-02-26 14:44] VITALS: BP 126/72; BMI 26.3
--- OUTSIDE RECORDS SUMMARY | 2024-02-26 16:50 | XMS_ITS | Data Portability ---
Author Organization [facility], [address] Address [address] [place] [address] Assessment No assessment recorded. Plan of Treatment Reminders Order Date Submit Date Provider Last Modified By Organization Details Last Modified Time Details Appointments None record ed. Lab None record ed. Referral None record ed. Procedures None record ed. Surgeries None record ed. Imaging None record ed. Medication Orders None record ed. Patient TargetsNo targets recorded. Patient InstructionsNo instructions recorded. Reason for Referral None Reported. Medical Equipment None Reported. Vitals None Recorded Social History None recorded. Functional Status None recorded. Mental Status None recorded. Family History Nothing Reported. Medical History No medical history recorded. Gynecological HistoryNo gynecological history recorded. Obstetrics History GPAL:G 0 P 0 0 0 0 Past Encounters Encounter ID Performer Location Encounter Start Date Encounter Closed Date Diagnosis/Indication Diagnosis SNOMED-CT Code Diagnosis ICD10 Code Diagnosis Note [id number] [address] [address] 07/08/2021 15:25:21 07/08/2021 18:31:35 Health Concerns Section Related Observation LastModified by Organization Detai ls LastModified Time None Recorded Concern Status LastModified by Organization Details LastModified Time None Recorded Advance Directives Directive None Recorded Payers Encounter Date Sequence Insurance Name Policy Number Policy Farrell Covered Member ID Farrell Member ID Guarantor Name 07/08/2021 1 [facility] [facility] (MEDICAID HMO) ROQUE Cooper [id number] Chanelle Cooper OBGyn Episode No OBEpisode recorded.
== END 2024-02-26 15:04 | disposition home or self-care (01) ==
LOC: HO.HWS 14:37
PROVIDERS: PCP Internal Medicine; Visit Provider Obstetrics & Gynecology
DX: Z01.419 Encounter for gynecological examination (general) (routine) without abnormal findings (principal)
CPT/HCPCS: 99396; 99459

== ENCOUNTER 2024-02-26 14:37 | Outpatient (REF) | payer OTHER, SELFPAY ==
[2024-02-27 10:53] LABS: HPV 16,18/45 See PAP report
== END 2024-02-26 14:38 | disposition home or self-care (01) ==
LOC: HO.LNP 14:37
PROVIDERS: PCP Internal Medicine; Visit Provider Obstetrics & Gynecology
DX: Z01.419 Encounter for gynecological examination (general) (routine) without abnormal findings (principal)
CPT/HCPCS: 87626; 88175; 99396; 99459

== ENCOUNTER 2024-04-18 10:24 | Outpatient (REF) | payer OTHER, SELFPAY ==
[2024-04-18 11:09] LABS: MANUAL DIFF FLAG NO
[2024-04-18 11:10] LABS: Basophils Percent Auto 0.4 % (0-2); Eosinophils Absolute Auto 0.1 X10*3/uL (0.0-0.4); Eosinophils Percent Auto 1.8 % (0-4); Hematocrit 43.7 % (37.0-47.0); Imm Gran Abs Auto 0.01 X10*3/uL (0.00-0.03); Imm Gran Pct Auto 0.2 % (0.0-0.4); Lymphocytes Absolute Auto 2.1 X10*3/uL (1.2-4.9); Lymphocytes Percent Auto 37.6 % (20-40); Mean Corpuscular HGB Conc 34.3 g/dl (31.0-35.0); Mean Corpuscular Hemoglobin 30.9 pg (27.0-33.0); Mean Corpuscular Volume 90.1 fL (80.0-98.0); Mean Platelet Volume 9.2 fL (9.4-12.3); Monocytes Absolute Auto 0.4 X10*3/uL (0.1-1.2); Monocytes Percent Auto 7.6 % (2-11); Neutrophils Percent Auto 52.4 % (45-73); Platelet Count 244 X10*3/uL (160-400); Red Blood Count 4.85 X10*6/uL (4.20-5.50); Red Cell Distribution Width 12.4 % (11.0-16.0); White Blood Count 5.6 X10*3/uL (4.8-10.8)
[2024-04-18 11:24] LABS: Estimated Average Glucose 137 mg/dL; Hemoglobin A1C 178.9356 umol/L; Hemoglobin A1c % 6.4 % (<6.0); Total Hemoglobin (HGBA1C) 3877.0702 umol/L
[2024-04-18 11:26] LABS: Appearance Urine Clear; Color Urine Yellow; Glucose Urine UA Negative (Negative); Leukocyte Esterase Urine Negative (Negative); Nitrite Urine Negative (Negative); Specific Gravity - Urine 1.025 (1.005-1.025); Urine Blood Negative (Negative); Urine Ketones Trace mg/dL (Negative); Urine Protein Trace mg/dL (Neg-Trace)
[2024-04-18 11:31] LABS: Alanine Aminotransferase 29 U/L (0-31); Albumin Level 4.4 g/dL (3.5-5.0); Alkaline Phosphatase 79 U/L (39-117); Anion Gap 10 (12-20); Aspartate Amino Transferase 27 U/L (5-31); Bilirubin Total 0.5 mg/dL (0.0-1.0); Blood Urea Nitrogen 12 mg/dL (9-16); Calcium 9.7 mg/dL (8.4-10.2); Carbon Dioxide 30 mmol/L (22-29); Chloride 103 mmol/L (96-108); Cholesterol 154 mg/dL (<200); Estimated Glomerular Filt Rate > 60; Glucose Fasting 133 mg/dL (60-99); HDL Cholesterol 55 mg/dL (>40); LDL Cholesterol Calculated 84 mg/dL (<100); Potassium 4.1 mmol/L (3.3-5.1); Sodium 139 mmol/L (135-145); Total Protein 7.9 g/dL (6.5-8.0); Triglycerides 78 mg/dL (<150)
[2024-04-18 11:47] LABS: TSH reflex Free T4 1.08 uIU/mL (0.32-4.0); Vitamin D 25-OH Total 40.4 ng/mL (>30)
--- OUTSIDE RECORDS SUMMARY | 2024-04-18 12:06 | XMS_ITS | Data Portability ---
Author Organization [facility], [address] Address [address] [place] [address] Assessment No assessment recorded. Plan of Treatment [...] SNOMED-CT Code Diagnosis ICD10 Code Diagnosis Note [id number] [address] [address] 07/08/2021 15:25:21 07/08/2021 18:31:35 Health Concerns Section Related Observation LastModified by Organization Detai ls LastModified Time None Recorded Concern Status LastModified by Organization Details LastModified Time None Recorded Advance Directives Directive None Recorded Payers Encounter Date Sequence Insurance Name Policy Number Policy Farrell Covered Member ID Farrell Member ID Guarantor Name 07/08/2021 1 [facility] [place] [facility] PLAN (MEDICAID HMO) ROQUE Cooper [id number] Chanelle Cooper OBGyn Episode No OBEpisode recorded.
[2024-04-18 12:25] LABS: Creatinine Urine 230.21 mg/dL; Microalbum/Creatinine Ratio Ur 4.3 ug/mg cr (<30)
== END 2024-04-18 10:25 | disposition home or self-care (01) ==
LOC: HO.10HDL 10:24
PROVIDERS: Visit Provider Internal Medicine
DX: E78.00 Pure hypercholesterolemia, unspecified (principal); E11.9 Type 2 diabetes mellitus without complications; D64.9 Anemia, unspecified; R30.0 Dysuria; E55.9 Vitamin D deficiency, unspecified
CPT/HCPCS: 36415; 80053; 80061; 81003; 82043; 82306; 82570; 83036; 84443; 85025

== ENCOUNTER 2024-04-22 15:49 | Outpatient (AMB) | payer OTHER, SELFPAY ==
[2024-04-22 16:17] VITALS: BP 120/78; PULSE 59; O2SAT 96; BMI 26.2
--- NOTE | 2024-04-22 16:17 | A.OFFPC_ITS ---
Vital Signs 04/22/24 16:17 Height 5 ft 5 in Weight 157 lb 8 oz BMI 26.2 BP 120/78 Blood Pressure Location Lt brachial Position Sitting Pulse 59 Pulse Source Pulse Oximeter Pulse Oximetry (%) 96 Oxygen Delivery Method Room Air Intake Visit Reasons: 4 Months Internal Investigator Required: No Accompanied by: Self / Same As Patient Allergies No Known Allergies Allergy (Verified 04/22/24 16:45) Medication List - Last Reconciled 04/22/24 by Moisés Santos MD albuterol sulfate 2.5 mg continuous nebulization Q6H PRN albuterol sulfate 2.5 mg (0.5 mL) inhalation Q6H PRN albuterol sulfate 90 mcg/actuation 1 inh inhalation Q4-6H PRN albuterol sulfate 90 mcg/actuation 2 puffs inhalation Q6H PRN amlodipine 2.5 mg PO DAILY 90 days atorvastatin 40 mg PO DAILY 90 days ciclesonide 80 mcg/actuation (Alvesco) 1 puff inhalation BID citalopram 40 mg PO DAILY 90 days cyclobenzaprine 10 mg PO TID PRN docusate sodium 100 mg PO DAILY PRN 30 days ergocalciferol (vitamin D2) 1,250 mcg PO QWEEK 90 days lisinopril-hydrochlorothiazide 20-25 mg 1 tab PO DAILY 90 days lorazepam 0.5 mg PO BID PRN meloxicam 15 mg PO DAILY metformin ER 500 mg PO QPM 90 days methylcellulose (laxative) (Citrucel) 500 mg PO DAILY metoprolol succinate ER 50 mg PO DAILY 90 days mirtazapine 15 mg PO BEDTIME 90 days trazodone 200 mg (2 x 100 mg) PO BEDTIME PRN 30 days Tobacco use date assessed: 04/22/24 Fall risk assessment: No Falls in past year Last assessed Fall Risk: 04/22/24 Dental Screening Dental Screen Date: 04/22/24 Did you have a dental visit in the last 12 months?: No Did you have a dental problem in the last 6 months where you did not have access to dental care?: No Was dental information given to patient?: No HPI 4 Months HPI Details Patient comes in today for her follow-up visit States that she feels okay She denies any headaches or dizziness Denies any chest pains, no shortness of breath No nausea/vomiting, no abdominal pain No change in bowel habits noted Needs her Trazodone Rx refilled today She had her follow up labs done a few days ago - to discuss her results [facility] Medical History Overweight (BMI 25.0-29.9) Tinnitus of both ears Depression Anxiety Insomnia Vitamin D deficiency Constipation Asthma Palpitations Pure hypercholesterolemia Benign essential hypertension Type 2 diabetes mellitus without complications Surgical History H/O colonoscopy (~04/20/20) History of removal of ovarian cyst History of tubal ligation Family History Father Diabetes Stroke Hypertension Mother Uterine cancer Hypertension Sister No problems noted. Social History Household Members: Children Housing: House Alcohol intake: current Alcohol intake frequency: holidays/special occasions only Alcohol type: wine Patient Tobacco Use Status: Never used Tobacco Tobacco use type: Cigarette e-Cigarette/Vaping Use: Never Used Second Hand Smoke Exposure: No Advance Directives Date on File: 12/04/19 service: No Current occupational status: disabled Current occupational exposures/hazards: No Sexual orientation: Straight/Heterosexual Gender identity: Female Cognitive needs: No Hearing needs: No Vision needs: No Female Reproductive History Menstrual Age of Menarche: 14 Questionnaire PHQ-9 Over the last 2 weeks, how often have you been bothered by any of the following problems? 1. Little interest or pleasure in doing things: several days 2. Feeling down, depressed, or hopeless: several days 3. Trouble falling or staying asleep, or sleeping too much: several days 4. Feeling tired or having little energy: several days 5. Poor appetite or overeating: several days 6. Feeling bad about yourself - or that you are a failure or have let yourself or your family down: not at all 7. Trouble concentrating on things, such as reading the newspaper or watching television: not at all 8. Moving or speaking so slowly that other people could have noticed. Or the opposite - being so fidgety or restless that you have been moving around a lot more than usual: not at all 9. Thoughts that you would be better off or of hurting yourself in some way: not at all Total score: 5 Depression Screening Interpretation: Positive Depression Screening Follow-up: Existing condition and In treatment Depression Screening Done: Yes 81013 - PHQ-9 Billing: Yes Source: Developed by Drs. Kvng Pearson, Janae Peralta, Wm Reyes and colleagues, with an educational dali from [employer]. Thrive Questionnaire Date Thrive assessed: 04/22/24 I am a: Patient What is your living situation today?: I have a steady place to live Within the past 12 months, did the food you bought not last and you didn't have the money to get more?: Never true Within the past 12 months, did you worry whether your food would run out before you got money to buy more?: Never true Do you have trouble paying for medicines?: No Do you have trouble getting transportation to medical appointments?: No Do you have trouble paying your heating and electricity bill?: No Do you have trouble taking care of your child, family member or friend?: No Do you have trouble with day-to-day activities such as bathing, preparing meals, shopping, managing finances, etc.?: No Are you currently unemployed and looking for a job?: No Are you interested in more education?: No Please select the resources that you would like help with: None Currently or been in a relationship where the following occur: No concerns reported THRIVE Score: 0 AUDIT C Alcohol Use Questionnaire (AUDIT-C) 1. How often do you have a drink containing alcohol?: Monthly or less 2. How many drinks containing alcohol do you have on a typical day when you are drinking?: 1 or 2 3. How often do you have six or more drinks on one occasion?: Never Total Score: 1 Score Reviewed/Action Taken: Yes CRISTHIAN-7 AMB Questionnaire CRISTHIAN-7 Date CRISTHIAN - 7 assessed: 04/22/24 Feeling nervous, anxious, or on edge: 0 = Not at all Not being able to stop or control worryin = Not at all Worrying too much about different things: 0 = Not at all Trouble relaxin = Not at all Being so restless that it is hard to sit still: 0 = Not at all Becoming easily annoyed or irritable: 0 = Not at all Feeling afraid as if something awful might happen: 0 = Not at all Total CRISTHIAN-7 score (0-4 normal; 5-9 mild; 10-14 moderate; 15-21 severe): 0 Source: Developed by Drs. Kvng Pearson, Janae Peralta, Wm Reyes and colleagues, with an educational dali from [employer]. Review of Systems Const Denies chills, Denies fatigue, Denies fever(s) and Denies headache(s) ENT Denies dysphagia, Denies dizziness, Denies otalgia, Denies headache(s), Denies neck pain, Denies odynophagia and Denies sore throat Card Denies chest pain, Denies irregular heart rhythm, Denies palpitations and Denies dyspnea Resp Denies chest congestion, Denies cough and Denies dyspnea GI Denies abdominal pain, Denies constipation, Denies dysphagia, Denies heartburn, Denies diarrhea, Denies nausea, Denies odynophagia and Denies vomiting Denies urinary frequency, Denies dysuria and Denies urinary urgency Musc Denies back pain, Denies arthralgias and Denies neck pain Skin/Breast Denies rash Neuro Denies dizziness, Denies headache(s) and Denies paresthesias Psych Denies anxiety and Denies depression Endo Denies fatigue and Denies palpitations Harry/Lymph Denies easy bruising Physical exam (Primary Care) Vital Signs: Last Vital Signs Pulse 59 04/22/24 16:17 BP 120/78 04/22/24 16:17 Pulse Ox 96 04/22/24 16:17 Oxygen Delivery Method Room Air 04/22/24 16:17 BMI result Body Mass Index 26.2 Tobacco/Smoking Status: Tobacco use Status Tobacco use date assessed 04/22/24 04/22/24 16:21 Patient Tobacco Use Status Never used Tobacco 04/22/24 16:21 Tobacco use type Cigarette 04/22/24 16:21 e-Cigarette/Vaping Use Never Used 04/22/24 16:21 PHQ-9: PHQ-9 Score PHQ-9: Total score 5 04/22/24 16:21 Depression Screening Interpretation: Positive Depression Screening Follow-up: Existing condition and In treatment Thrive Assessment: Date of Thrive Assessment Date Thrive assessed 04/22/24 04/22/24 16:21 Currently or been in a relationship where the following occur: No concerns reported Const General: no acute distress and alert HENMT Ears: TM's normal bilaterally and EAC's normal Throat: Yes posterior oropharynx normal and Yes tonsils normal (no TP congestion) Neck Neck: Yes supple and No lymphadenopathy Thyroid: Thyroid normal Resp Auscultation: clear to auscultation bilaterally, no rales and no wheezes Cardio Rate: regular rate Rhythm: regular rhythm Heart sounds: no murmurs GI Palpation (GI): Soft to palpation and nontender Auscultation: normal bowel sounds General: Yes no CVA tenderness Back/Spine/Pelvis Back: no CVA tenderness Thoracic/Lumbar Spine: No lumbar spinal tenderness Skin Rashes: no rashes Extrem General: Yes no clubbing, cyanosis or edema Results Reviewed Results Reviewed: Laboratory Tests 04/18/24 10:30 WBC 5.6 Hgb 15.0 Hct 43.7 Plt Count 244 Sodium 139 Potassium 4.1 Creatinine 0.80 Estimated GFR > 60 Fasting Glucose 133 H Hemoglobin A1c % 6.4 H Calcium 9.7 AST 27 ALT 29 Triglycerides 78 Cholesterol 154 LDL Cholesterol, Calc 84 HDL Cholesterol 55 25-OH Vitamin D Total 40.4 TSH 1.08 Ur Specific Lynn 1.025 Urine Protein Trace Urine Glucose (UA) Negative Urine Blood Negative Urine Nitrite Negative Ur Leukocyte Esterase Negative Microalb/Creat Ratio 4.3 Coding Level of Care Code Est Pt Level 4 (97385) Diagnoses Pure hypercholesterolemia E78.00 Type 2 diabetes mellitus without complication, without long-term current use of insulin E11.9 Diabetes mellitus long-term insulin use: without long-term use Benign essential hypertension I10 Moderate persistent asthma without complication J45.40 Asthma severity: moderate Asthma persistence: persistent Asthma complication type: uncomplicated Constipation, unspecified constipation type K59.00 Constipation type: unspecified constipation type Vitamin D deficiency E55.9 Tinnitus of left ear H93.12 Insomnia, unspecified type G47.00 Insomnia type: unspecified Anxiety F41.9 Episode of recurrent major depressive disorder, unspecified depression episode severity F33.9 Depression Type: major depressive disorder Major depression recurrence: recurrent Active/Remission status: currently active Major depression episode severity: unspecified Overweight (BMI 25.0-29.9) E66.3 Additional Codes PHQ-9 - 93460 - PHQ-9 Billing: Yes ([id number]) Assessment & Plan Assessment & Plan (1) Pure hypercholesterolemia: Code(s): E78.00 - Pure hypercholesterolemia, unspecified Category: Medical Plan: Results of her labs done a few days ago reviewed and discussed with patient Reinforced low cholesterol diet Continue Atorvastatin 40 mg QD Will recheck her labs and fasting lipids in 4 months for follow up (2) Type 2 diabetes mellitus without complications: Comment: diet controlled Code(s): E11.9 - Type 2 diabetes mellitus without complications Category: Medical Qualifiers: Diabetes mellitus termite treater insulin use: without termite treater use Oliver lified Code(s): E11.9 - Type 2 diabetes mellitus without complications Plan: Her HgbA1c was at 6.4% on her labs done a few days ago (in-office HgbA1c was previously at 6.6% a few months ago) - goal is ideally <6.5% Reinforced diabetic diet Continue Metformin ER 500 mg Q PM (3) Benign essential hypertension: Code(s): I10 - Essential (primary) hypertension Category: Medical Plan: Reinforced low sodium diet - goal is systolic BP of around 120 to 130 mm or less Continue Amlodipine 2.5 mg QD and Lisinopril-HCT 20-25 mg QD (4) Asthma: Comment: uses daily inhaler, pren rescue inhaler & nebulizer Code(s): J45.909 - Unspecified asthma, uncomplicated Category: Medical Qualifiers: Asthma severity: moderate Asthma persistence: persistent Asthma complication type: uncomplicated Qualified Code(s): J45.40 - Moderate persistent asthma, uncomplicated Plan: Controlled Continue Alvesco aerosol inhaler 80 mcg 1 inhalation twice a day and ProAir HFA 2 puffs every 6 hours only as needed - patient states that she hardly has to use her rescue inhaler (5) Constipation: Code(s): K59.00 - Constipation, unspecified Category: Medical Qualifiers: Constipation type: unspecified constipation type Qualified Code(s): K59.00 - Constipation, unspecified Plan: Patient is again encouraged on? increased oral fluids and dietary fiber to help control her symptoms Continue Fiber supplements (Citrucel) daily - she was started on this by GI Continue Docusate 100 mg QD PRN She had a normal colonoscopy back in April 2020 Follow up with GI as scheduled (6) Vitamin D deficiency: Code(s): E55.9 - Vitamin D deficiency, unspecified Category: Medical Plan: Continue Vitamin D2 96315 units once a week (7) Tinnitus of left ear: Code(s): H93.12 - Tinnitus, left ear Category: Medical Plan: She was seen by ENT in [place] last year and was reportedly advised that her ear exam was normal She was sent for an MRI of the head/ears for further evaluation - this reportedly came out okay Follow up with ENT as scheduled (8) Insomnia: Code(s): G47.00 - Insomnia, unspecified Category: Medical Qualifiers: Insomnia type: unspecified Qualified Code(s): G47.00 - Insomnia, unspecified Plan: Sleep hygiene reinforced Continue Trazodone 200 mg daily at bedtime as needed - Rx refilled She has been advised that she can also add OTC Melatonin PRN to help her sleep better if she finds that Trazodone is not helping as much (9) Anxiety: Code(s): F41.9 - Anxiety disorder, unspecified Category: Medical Plan: Continue Lorazepam 0.5 mg 1 to 2 times a day as needed States that Citalopram helps with her anxiety as well (10) Depression: Code(s): F32.9 - Major depressive disorder, single episode, unspecified Category: Medical Qualifiers: Depression Type: major depressive disorder Major depression recurrence: recurrent Active/Remission status: currently active Major depression episode severity: unspecified Qualified Code(s): F33.9 - Major depressive disorder, recurrent, unspecified Plan: Continue Citalopram 40 mg once a day and Mirtazapine 15 mg daily at bedtime Follow-up with Psychiatry as scheduled (11) Overweight (BMI 25.0-29.9): Code(s): E66.3 - Overweight Category: Medical Plan: Reinforced diet/exercise as tolerated/lose weight Plan Follow up in 4 months Orders: Orders Comprehensive [place]. Panel Fast 4 Months E78.00 - Pure hypercholesterolemia, unspecified UA CC w/rflx Micro + Cult 4 Months R30.0 - Dysuria Hemoglobin A1c 4 Months E11.9 - Type 2 diabetes mellitus without complications Complete Blood Count Auto Diff 4 Months D64.9 - Anemia, unspecified Lipid Panel 4 Months E78.00 - Pure hypercholesterolemia, unspecified TSH reflex Free T4 4 Months E78.00 - Pure hypercholesterolemia, unspecified Vitamin D 25-OH Total 4 Months E55.9 - Vitamin D deficiency, unspecified Medications: Refilled trazodone 200 mg (2 x 100 mg) PO BEDTIME 30 days PRN 60 tabs 11RF insomnia G47.00 - Insomnia, unspecified
--- OUTSIDE RECORDS SUMMARY | 2024-04-22 18:35 | XMS_ITS | Data Portability ---
Author Organization [facility], [address] Address [address] [place] [address] Assessment No assessment recorded. Plan of Treatment [...] SNOMED-CT Code Diagnosis ICD10 Code Diagnosis Note [id number] [id number] 07/08/2021 15:25:21 07/08/2021 18:31:35 Health Concerns Section Related Observation LastModified by Organization Detai ls LastModified Time None Recorded Concern Status LastModified by Organization Details LastModified Time None Recorded Advance Directives Directive None Recorded Payers Encounter Date Sequence Insurance Name Policy Number Policy Farrell Covered Member ID Farrell Member ID Guarantor Name 07/08/2021 1 [facility] (MEDICAID HMO) ROQUE Cooper [id number] Chanelle Cooper OBGyn Episode No OBEpisode recorded.
== END 2024-04-22 16:52 | disposition home or self-care (01) ==
PROVIDERS: PCP Internal Medicine; Visit Provider Internal Medicine
DX: E78.00 Pure hypercholesterolemia, unspecified (principal); E11.9 Type 2 diabetes mellitus without complications; F33.9 Major depressive disorder, recurrent, unspecified; I10 Essential (primary) hypertension; J45.40 Moderate persistent asthma, uncomplicated; K59.00 Constipation, unspecified; E55.9 Vitamin D deficiency, unspecified; H93.12 Tinnitus, left ear; G47.00 Insomnia, unspecified; F41.9 Anxiety disorder, unspecified; E66.3 Overweight

== ENCOUNTER → 2024-04-22 15:49 | Outpatient (BNVA) | payer OTHER, SELFPAY | PROVIDERS: PCP Internal Medicine; Visit Provider Internal Medicine | DX: E78.00 Pure hypercholesterolemia, unspecified (principal); E11.9 Type 2 diabetes mellitus without complications; I10 Essential (primary) hypertension; J45.40 Moderate persistent asthma, uncomplicated; K59.00 Constipation, unspecified; E55.9 Vitamin D deficiency, unspecified; H93.12 Tinnitus, left ear; G47.00 Insomnia, unspecified; F41.9 Anxiety disorder, unspecified; F33.9 Major depressive disorder, recurrent, unspecified; E66.3 Overweight; Z68.26 Body mass index [BMI] 26.0-26.9, adult; Z71.3 Dietary counseling and surveillance | CPT/HCPCS: 96127; 99212 ==

== ENCOUNTER 2024-06-20 10:35 | Emergency (ER) | payer OTHER, SELFPAY ==
--- NOTE | ~2024-06-20 | XR_ITS ---
EXAMINATION: XR SHOULDER 2 OR MORE VIEWS RIGHT HISTORY: right shoulder pain COMPARISON: There are no prior studies available for comparison. FINDINGS: Three views of the right shoulder are submitted. Osseous mineralization is normal. There is no fracture or dislocation. The glenohumeral joint is maintained. There is mild narrowing of the AC joint. An amorphous soft tissue calcification adjacent to the superior glenoid may be related to the rotator cuff. XR/XR shoulder RT min 2V IMPRESSION: Mild narrowing of the AC joint. Possible rotator cuff calcification. Electronically signed by: Kvng Lovett MD 06/20/2024 11:08 AM EDT
[2024-06-20 10:46] VITALS: BP 190/87; PULSE 85; RESP 16; TEMP 35.9; O2SAT 97; BMI 25.6
--- NOTE | 2024-06-20 11:17 | ED.EXTPRO ---
HPI - Extremity Problem General Chief complaint: Extremity Injury, Upper Stated complaint: shoulder pain down arm Time Seen by Provider: 06/20/24 11:12 Source: patient Mode of arrival: ambulatory Limitations: no limitations History of Present Illness ED Provider: Antonella Gustafson PA-C HPI Narrative: 63 year old female with PMHx of T2DM, asthma, HTN presents to the ED for 3 days of right shoulder pain. She states she woke up 3 days ago and noticed an increased aching in her shoulder leaving her unable to lift her arm up or to the side. She denies any known injury or trauma, however she does report that she has been doing a lot of housework recently. She states the pain has made it difficult to do house cleaning and ADL's. She has been using icy hot, heat, ice, and ibuprofen (last dose 8am this morning) without effect. She explains movement makes the pain worse and it is constant. She denies headache, visual changes, chest pain, SOB, cough, nausea, vomiting, or diarrhea. MD Complaint: extremity pain (right shoulder) Onset (ago): day(s) (3) Pain Consistency: constant Location: right and upper extremity (right shoulder ) Quality: aching and constant Radiation: none Relieving factors: nothing Exacerbating factors: range of motion (abduction and flexion of the right shoulder ) Associated symptoms: denies other symptoms Related Data Home Medications ?Medication ?Instructions ?Recorded ?Confirmed cyclobenzaprine 10 mg tablet 10 mg PO TID PRN muscle spasm 12/11/19 04/22/24 ciclesonide 80 mcg/actuation 1 puff inhalation BID 12/15/19 04/22/24 aerosol inhaler (Alvesco) lorazepam 0.5 mg tablet 0.5 mg PO BID PRN Anxiety 12/15/19 04/22/24 albuterol sulfate 2.5 mg/3 mL 2.5 mg continuous nebulization Q6H 03/11/20 04/22/24 (0.083 %) solution for nebulization PRN shortness of breath or wheezing Previous Rx's ?Medication ?Instructions ?Recorded methylcellulose (laxative) 500 mg 500 mg PO DAILY #30 tabs 04/24/20 tablet (Citrucel) citalopram 40 mg tablet 40 mg PO DAILY 90 days #90 tabs 08/25/21 mirtazapine 15 mg tablet 15 mg PO BEDTIME 90 days #90 tabs 01/10/22 meloxicam 15 mg tablet 15 mg PO DAILY #14 tabs 03/22/22 albuterol sulfate 90 mcg/actuation 1 inh inhalation Q4-6H PRN 01/09/23 aerosol inhaler Shortness Of Breath #8.5 grams albuterol sulfate 5 mg/mL(0.5 %) 2.5 mg (0.5 mL) inhalation Q6H PRN 02/04/23 solution for nebulization shortness of breath or wheezing #20 mL albuterol sulfate 90 mcg/actuation 2 puff inhalation Q6H PRN 02/04/23 aerosol inhaler shortness of breath or wheezing #6.7 grams ergocalciferol (vitamin D2) 1,250 1,250 mcg PO QWEEK 90 days #13 caps 07/07/23 mcg (50,000 unit) capsule atorvastatin 40 mg tablet 40 mg PO DAILY 90 days #90 tabs 02/07/24 metformin 500 mg tablet,extended 500 mg PO QPM 90 days #90 tabs 03/21/24 release 24 hr metoprolol succinate 50 mg 50 mg PO DAILY 90 days #90 tabs 03/21/24 tablet,extended release 24 hr trazodone 100 mg tablet 200 mg (2 x 100 mg) PO BEDTIME PRN 04/22/24 insomnia 30 days #60 tabs amlodipine 2.5 mg tablet 2.5 mg PO DAILY 90 days #90 tabs 06/17/24 docusate sodium 100 mg capsule 100 mg PO DAILY PRN constipation 06/17/24 30 days #90 caps lisinopril 20 1 tab PO DAILY 90 days #90 tabs 06/17/24 mg-hydrochlorothiazide 25 mg tablet Allergies Allergy/AdvReac Type Severity Reaction Status Date / Time No Known Allergies Allergy Verified 06/20/24 10:48 Review of Systems Review of Systems: Constitutional: No Weight loss, No Fever, No Chills, No Night Sweats, No Fatigue, No Malaise ENT/Mouth: No Hearing loss, No Ear Pain, No Nasal Congestion, No Sinus Pain, No Hoarseness, No sore throat, No Rhinorrhea, No Swallowing Difficulty Eyes: No Eye Pain, No Swelling, No Redness, No Foreign Body, No Discharge, No Vision Changes Cardiovascular: No Chest Pain, No SOB, No Dyspnea on Exertion, No Orthopnea, No Edema, No Palpitations Respiratory: No Cough, No Sputum, No Wheezing, No Smoke Exposure, No Dyspnea Gastrointestinal: No Nausea, No Vomiting, No Diarrhea, No Constipation, No Abdominal pain, No Hematochezia, No Melena Genitourinary: No irregular bleeding, No Dysuria, No Urinary Frequency, No Hematuria, No Urinary Incontinence/retention, No Urgency, No Flank Pain, No Urinary Flow Changes, No Hesitancy Musculoskeletal: No joint pain, No Myalgias, No Joint Swelling, + Right shoulder pain Skin: No Skin Lesions, No rash Neuro: No Weakness, No Numbness, No Paresthesias, No Loss of Consciousness, No Dizziness, No Headache Psych: No Anxiety/Panic, No Depression, No SI/HI/AH/VH, No Social Issues, Heme/Lymph: No Bruising, No Bleeding,No Lymphadenopathy Endocrine: No Polyuria, No Polydipsia, No Temperature Intolerance PMFSH Past Medical History Attestation statement: The following information was validated with the patient. Source: old records reviewed and nursing notes reviewed Medical History Overweight (BMI 25.0-29.9) Tinnitus of both ears Depression Anxiety Insomnia Vitamin D deficiency Constipation Asthma Palpitations Pure hypercholesterolemia Benign essential hypertension Type 2 diabetes mellitus without complications Surgical History H/O colonoscopy (~04/20/20) History of removal of ovarian cyst History of tubal ligation Family History Family History Father Diabetes Stroke Hypertension Mother Uterine cancer Hypertension Sister No problems noted. Social History Social History Household Members: Children Housing: House Alcohol intake: current Alcohol intake frequency: holidays/special occasions only Alcohol type: wine Patient Tobacco Use Status: Never used Tobacco Tobacco use type: Cigarette e-Cigarette/Vaping Use: Never Used Second Hand Smoke Exposure: No Advance Directives: Yes Advance Directives on File: Yes Advance Directives Date on File: 12/04/19 Do you have a plan to hurt others: No Plan service: No Current occupational status: disabled Current occupational exposures/hazards: No Sexual orientation: Straight/Heterosexual Gender identity: Female Cognitive needs: No Hearing needs: No Vision needs: No Physical Exam Vital Signs: Vital Signs: Last Vital Signs Temp 96.7 F L 06/20/24 12:34 Pulse 85 06/20/24 12:34 Resp 16 06/20/24 12:34 BP 190/87 H 06/20/24 12:34 Pulse Ox 97 06/20/24 12:34 O2 Del Method Room Air 06/20/24 12:34 BMI result Body Mass Index 25.6 Appearance: Alert. Oriented X3. No acute distress. Eyes: Pupils equal, round and reactive to light. ENT: Pharynx normal. Neck: Normal inspection. Neck supple. CVS: Normal heart rate and rhythm. Pulses normal. Respiratory: No respiratory distress. Breath sounds normal. Abdomen: Soft and nontender. +BS x4 Skin: Skin warm and dry. Normal skin color. Normal skin turgor. No rashes. Extremities: No lower extremity edema. Right shoulder with no obvious bony deformity or swelling + right shoulder pain during ROM including abduction, flexion, + empty can test, + Hawkin's test, no surrounding erythema, warmth, ecchymosis present Neuro: Oriented X 3. No motor deficit. No sensory deficit. CN II-XII intact. Medications Administered Discontinued Medications Generic Name Dose Route Start Last Admin Trade Name Delonteq PRN Reason Stop Dose Admin Acetaminophen 975 mg 06/20/24 11:48 06/20/24 12:04 Acetaminophen 325 Mg Tablet PO 06/20/24 11:49 975 mg ONCE ONE Administration Lidocaine 1 patch 06/20/24 11:51 06/20/24 12:01 Lidocaine 4 % Patch Adh..Patch TRANSDERMA 06/20/24 11:52 1 patch ONCE ONE Administration Protocol Medical Decision Making Medical Decision Making MDM Narrative: 63 year old female with PMHx of T2DM, asthma, HTN presents to the ED for 3 days of right shoulder pain. She states she woke up 3 days ago and noticed an increased aching in her shoulder leaving her unable to lift her arm up or to the side. She states the pain has made it difficult to do house cleaning and ADL's. She has been using icy hot, heat, ice, and ibuprofen (last dose 8am this morning) without effect. She explains movement makes the pain worse and it is constant. She denies headache, visual changes, chest pain, SOB, cough, nausea, vomiting, or diarrhea. Patients vital signs stable with exception of elevated BP of 190/87, in no acute distress and is non-toxic appearing. She has no chest pain or shortness of breath. On physical exam she has no pain to palpation of the R shoulder, but exhibits pain during active and passive ROM including abduction and flexion of the extremity, she has a positive empty can test and Hawkin's test suggesting pathology of the supraspinatus muscle or arthritic changes. Patient does not exhibit any joint line tenderness to palpation, edema, erythema, ecchymosis, warmth of the right shoulder, making infected joint less likely. Pain does not radiate and there are no radiculuar symptoms present making impingement less likely. At this time suspect adhesive capsulitis or arthritic changes causing right shoulder pain. Will obtain R shoulder X-ray to R/O fracture, trauma and observe for possible arthritic changes. Course 11:35- R shoulder Xray does not observe fracture or dislocation, but does show mild narrowing of the AC joint, and calcification of the superior glenoid. This is suggestive of arthritic changes of the anatomy causing the shoulder pain. Patient will be counseled on alternating Tylenol and Motrin, applying ice to the area, and encouragement of gentle stretching and pendulum exercises to keep the shoulder anatomy mobile preventing adhesive capsulitis. She will be encouraged to follow up outpatient with [facility] [place]. Given shoulder immobilizer for symptomatic relief, warned against frozen shoulder, and advised to perform [id number] exercises many times per day to prevent this. Differential Diagnosis Differential Diagnoses: The differential diagnosis associated with the presentation includes adhesive capsulitis, arthritis, rotator cuff injury, septic joint Admission/Observation Consideration of admission/observation: Escalation of care including admission/observation considered Independent Interpretation I performed an independent interpretation of an: Plain X-Ray Interpretation: I have independently reviewed the R shoulder X-ray and agree with the radiologists findings. Radiology Impression Discussion of test interpretation with radiology: I have reviewed the radiologist's reading. Radiologist Impression: EXAMINATION: XR SHOULDER 2 OR MORE VIEWS RIGHT HISTORY: right shoulder pain COMPARISON: There are no prior studies available for comparison. FINDINGS: Three views of the right shoulder are submitted. Osseous mineralization is normal. There is no fracture or dislocation. The glenohumeral joint is maintained. There is mild narrowing of the AC joint. An amorphous soft tissue calcification adjacent to the superior glenoid may be related to the rotator cuff. XR/XR shoulder RT min 2V IMPRESSION: Mild narrowing of the AC joint. Possible rotator cuff calcification. Electronically signed by: Kvng Lovett MD 06/20/2024 11:08 AM EDT External Record Review External record reviewed: Inpatient record, Office record and Outpatient record Prescription Management I considered prescription management with: Pain Medication (IM toradol) Treatment considered but not given as patient took Ibuprofen approximately 3 hours ago making treatment with any anti-inflammatories contraindicated. Chronic Conditions Patient?s care impacted by: Diabetes and Hypertension Discharge Plan Discharge Clinical Impression: Acute pain of right shoulder Patient Disposition: Home, Self-Care Instructions: Adhesive Capsulitis (ED), Shoulder Pain (ED) Additional Instructions: You were evaluated in the ED today for right shoulder pain. Your X-ray was reassuring that were was no fracture or dislocation of the right shoulder. However, the X-ray did show some narrowing of the space between the acromioclavicular joint which is the space where part of the shoulder blade bone connects to the collar bone, and calcifications of the rotator cuff suggesting arthritic changes. Alternate between ibuprofen and or Tylenol as needed for pain and symptoms. Use shoulder sling for comfort only. It is very important that you continue to take your shoulder and arm out of the sling multiple times per day and perform [id number] as if you do not move the shoulder you out wrist for adhesive capsulitis, also known as frozen shoulder. You should follow up with [facility] [place] orth[place] team to address your shoulder pain. Call today to make an appointment Return to the ED if you experience any decreased sensation, increase pain, inability to move the arm, or any other symptoms or concerns. Prescriptions: No Action mirtazapine 15 mg tablet 15 mg PO BEDTIME 90 Days Qty: 90 1RF albuterol sulfate 90 mcg/actuation HFA aerosol inhaler 1 inh inhalation Q4-6H PRN (Reason: Shortness Of Breath) Qty: 8.5 3RF ergocalciferol (vitamin D2) 1,250 mcg (50,000 unit) capsule 1,250 mcg PO QWEEK 90 Days Qty: 13 3RF atorvastatin 40 mg tablet 40 mg PO DAILY 90 Days Qty: 90 1RF Rx Instructions: Dose INCREASED to 40 mg QD metformin 500 mg tablet extended release 24 hr 500 mg PO QPM 90 Days Qty: 90 1RF metoprolol succinate 50 mg tablet extended release 24 hr 50 mg PO DAILY 90 Days Qty: 90 1RF lisinopril-hydrochlorothiazide 20-25 mg tablet 1 tab PO DAILY 90 Days Qty: 90 1RF amlodipine 2.5 mg tablet 2.5 mg PO DAILY 90 Days Qty: 90 1RF docusate sodium 100 mg capsule 100 mg PO DAILY PRN (Reason: constipation) 30 Days Qty: 90 1RF cyclobenzaprine 10 mg tablet 10 mg PO TID PRN (Reason: muscle spasm) lorazepam 0.5 mg tablet 0.5 mg PO BID PRN (Reason: Anxiety) Alvesco 80 mcg/actuation HFA aerosol inhaler 1 puff inhalation BID albuterol sulfate 2.5 mg /3 mL (0.083 %) solution for nebulization 2.5 mg continuous nebulization Q6H PRN (Reason: shortness of breath or wheezing) meloxicam 15 mg tablet 15 mg PO DAILY Qty: 14 0RF citalopram 40 mg tablet 40 mg PO DAILY 90 Days Qty: 90 1RF albuterol sulfate 90 mcg/actuation HFA aerosol inhaler 2 puff inhalation Q6H PRN (Reason: shortness of breath or wheezing) Qty: 6.7 0RF albuterol sulfate 5 mg/mL solution for nebulization 2.5 mg inhalation Q6H PRN (Reason: shortness of breath or wheezing) Qty: 20 0RF Citrucel 500 mg tablet 500 mg PO DAILY Qty: 30 2RF trazodone 100 mg tablet 200 mg PO BEDTIME PRN (Reason: insomnia) 30 Days Qty: 60 11RF Referrals: [facility] [place] [facility] Surgeons [Provider Group] Interventions: ED Discharge Assessment Last Done: 06/20/24 12:34 Discharge Date/Time: 06/20/24 12:34 Print Language: Czech
[2024-06-20] MEDS: Lidocaine 4 % Patch ADH..PATCH 1 PATCH TRANSDERMA (12:01)
[2024-06-20] MEDS: Acetaminophen 325 MG TABLET 975 MG PO (12:04)
[2024-06-20 12:34] VITALS: BP 190/87; PULSE 85; RESP 16; TEMP 35.9; O2SAT 97
--- OUTSIDE RECORDS SUMMARY | 2024-06-20 13:27 | XMS_ITS | Data Portability ---
Author Organization [facility], [id number] Address [address] [place] [address] Assessment No assessment recorded. Plan of Treatment [...] SNOMED-CT Code Diagnosis ICD10 Code Diagnosis Note [id number] [address] [place] [address] 07/08/2021 15:25:21 07/08/2021 18:31:35 Health Concerns Section Related Observation LastModified by Organization Detai ls LastModified Time None Recorded Concern Status LastModified by Organization Details LastModified Time None Recorded Advance Directives Directive None Recorded Payers Encounter Date Sequence Insurance Name Policy Number Policy Farrell Covered Member ID Farrell Member ID Guarantor Name 07/08/2021 1 [facility] - HEALTH NET PLAN (MEDICAID HMO) ROQUE Cooper [id number] Chanelle Cooper OBGyn Episode No OBEpisode recorded.
== END 2024-06-20 12:34 | disposition home or self-care (01) ==
PROVIDERS: Emergency Provider Emergency Medicine; PCP Internal Medicine
DX: M25.511 Pain in right shoulder (principal); Z79.899 Other long term (current) drug therapy
CPT/HCPCS: 73030; 99283

== ENCOUNTER → 2024-06-20 10:50 | Outpatient (BNV) | payer OTHER, SELFPAY | PROVIDERS: Emergency Provider Emergency Medicine; PCP Internal Medicine; Visit Provider Radiology Diagnostic Radiology | DX: M25.511 Pain in right shoulder (principal) | CPT/HCPCS: 73030 ==

== ENCOUNTER 2024-08-28 11:18 | Outpatient (REF) | payer MEDICARE, MEDICAID, SELFPAY ==
--- OUTSIDE RECORDS SUMMARY | 2024-08-28 12:30 | XMS_ITS | Data Portability ---
Author Organization [facility], [address] Address [address] [place] [address] Assessment No assessment recorded. Plan of Treatment [...] SNOMED-CT Code Diagnosis ICD10 Code Diagnosis Note [id number] [address] [address] [address] 07/08/2021 15:25:21 07/08/2021 18:31:35 Health Concerns Section Related Observation LastModified by Organization Detai ls LastModified Time None Recorded Concern Status LastModified by Organization Details LastModified Time None Recorded Advance Directives Directive None Recorded Payers Insurance Date Sequence Insurance Name Policy Number Policy Farrell Covered Member ID Farrell Member ID Guarantor Name 03/22/2022 1 [facility] [place] (MEDICAID HMO) ROQUE Cooper [id number] Chanelle Cooper OBGyn Episode No OBEpisode recorded.
[2024-08-28 13:12] LABS: Appearance Urine Clear; Glucose Urine UA Negative (Negative); PH 6.0 (5.0-9.0); Specific Gravity - Urine 1.025 (1.005-1.025)
[2024-08-28 13:17] LABS: MANUAL DIFF FLAG NO
[2024-08-28 13:21] LABS: Hematocrit 42.1 % (37.0-47.0); Hemoglobin 14.7 g/dl (12.0-16.0); Imm Gran Abs Auto 0.03 X10*3/uL (0.00-0.03); Imm Gran Pct Auto 0.4 % (0.0-0.4); Lymphocytes Absolute Auto 2.3 X10*3/uL (1.2-4.9); Mean Corpuscular HGB Conc 34.9 g/dl (31.0-35.0); Mean Corpuscular Hemoglobin 30.4 pg (27.0-33.0); Mean Corpuscular Volume 87.2 fL (80.0-98.0); NRBC Abs Auto 0.000 X10*3/uL (0.0-0.012); NRBC Pct Auto 0.0 /100WBC (0.0-0.2); Platelet Count 259 X10*3/uL (160-400); Red Blood Count 4.83 X10*6/uL (4.20-5.50); White Blood Count 7.4 X10*3/uL (4.8-10.8)
[2024-08-28 13:28] LABS: Hemoglobin A1C 191.0642 umol/L; Total Hemoglobin (HGBA1C) 3838.9954 umol/L
[2024-08-28 13:39] LABS: Alanine Aminotransferase 22 U/L (0-31); Albumin Level 4.5 g/dL (3.5-5.0); Alkaline Phosphatase 87 U/L (39-117); Anion Gap 11 (12-20); Aspartate Amino Transferase 23 U/L (5-31); Blood Urea Nitrogen 14 mg/dL (9-16); Calcium 9.5 mg/dL (8.4-10.2); Carbon Dioxide 28 mmol/L (22-29); Chloride 104 mmol/L (96-108); Cholesterol 170 mg/dL (<200); Estimated Glomerular Filt Rate > 60; HDL Cholesterol 58 mg/dL (>40); Potassium 4.0 mmol/L (3.3-5.1); Sodium 139 mmol/L (135-145); Total Protein 7.3 g/dL (6.5-8.0); Triglycerides 116 mg/dL (<150)
== END 2024-08-28 11:19 | disposition home or self-care (01) ==
LOC: HO.10HDL 11:18
PROVIDERS: Visit Provider Internal Medicine
DX: E11.9 Type 2 diabetes mellitus without complications (principal); R30.0 Dysuria; E78.00 Pure hypercholesterolemia, unspecified; E55.9 Vitamin D deficiency, unspecified; D64.9 Anemia, unspecified
CPT/HCPCS: 36415; 80053; 80061; 81003; 82306; 83036; 84443; 85025

== ENCOUNTER 2024-08-30 15:43 | Outpatient (AMB) | payer OTHER, SELFPAY ==
[2024-08-30 15:46] VITALS: BP 140/80; PULSE 69; O2SAT 95; BMI 29.6
--- NOTE | 2024-08-30 15:46 | MHC.PC.OV ---
Vital Signs 08/30/24 15:46 Height 5 ft 2 in Weight 162 lb BMI 29.6 BP 140/80 H Blood Pressure Location Lt brachial Position Sitting Pulse 69 Pulse Source Pulse Oximeter Pulse Oximetry (%) 95 Oxygen Delivery Method Room Air Intake Visit Reasons: 4 Month F/U Drug Safety Assistant Required: No Accompanied by: Self / Same As Patient Allergies No Known Allergies Allergy (Verified 08/30/24 16:24) Medication List - Last Reconciled 08/30/24 by Moisés Santos MD albuterol sulfate 2.5 mg continuous nebulization Q6H PRN albuterol sulfate 2.5 mg (0.5 mL) inhalation Q6H PRN albuterol sulfate 90 mcg/actuation 1 inh inhalation Q4-6H PRN albuterol sulfate 90 mcg/actuation 2 puffs inhalation Q6H PRN amlodipine 2.5 mg PO DAILY 90 days atorvastatin 40 mg PO DAILY 90 days ciclesonide 80 mcg/actuation (Alvesco) 1 puff inhalation BID citalopram 40 mg PO DAILY 90 days cyclobenzaprine 10 mg PO TID PRN docusate sodium 100 mg PO DAILY PRN 30 days ergocalciferol (vitamin D2) 1,250 mcg PO QWEEK 90 days lisinopril-hydrochlorothiazide 20-25 mg 1 tab PO DAILY 90 days lorazepam 0.5 mg PO BID PRN meloxicam 15 mg PO DAILY metformin ER 500 mg PO QPM 90 days methylcellulose (laxative) (Citrucel) 500 mg PO DAILY metoprolol succinate ER 50 mg PO DAILY 90 days mirtazapine 15 mg PO BEDTIME 90 days trazodone 200 mg (2 x 100 mg) PO BEDTIME PRN 30 days Tobacco use date assessed: 08/30/24 Fall risk assessment: No Falls in past year Last assessed Fall Risk: 08/30/24 Dental Screening Dental Screen Date: 08/30/24 Did you have a dental visit in the last 12 months?: No Did you have a dental problem in the last 6 months where you did not have access to dental care?: No Was dental information given to patient?: No HPI 4 Month F/U HPI Details Patient comes in today for her follow-up visit States that she feels okay She denies any headaches or dizziness Denies any chest pains, no shortness of breath No nausea/vomiting, no abdominal pain No change in bowel habits noted She had her follow up labs done a couple of days ago - to discuss her results [facility] Medical History Overweight (BMI 25.0-29.9) Tinnitus of both ears Depression Anxiety Insomnia Vitamin D deficiency Constipation Asthma Palpitations Pure hypercholesterolemia Benign essential hypertension Type 2 diabetes mellitus without complications Surgical History H/O colonoscopy (~04/20/20) History of removal of ovarian cyst History of tubal ligation Family History Father Diabetes Stroke Hypertension Mother Uterine cancer Hypertension Sister No problems noted. Social History Household Members: Children Housing: House Alcohol intake: current Alcohol intake frequency: holidays/special occasions only Alcohol type: wine Patient Tobacco Use Status: Never used Tobacco Tobacco use type: Cigarette e-Cigarette/Vaping Use: Never Used Second Hand Smoke Exposure: No Advance Directives Date on File: 12/04/19 service: No Current occupational status: disabled Current occupational exposures/hazards: No Sexual orientation: Straight/Heterosexual Gender identity: Female Cognitive needs: No Hearing needs: No Vision needs: No Female Reproductive History Menstrual Age of Menarche: 14 Questionnaire PHQ-9 Over the last 2 weeks, how often have you been bothered by any of the following problems? 1. Little interest or pleasure in doing things: not at all 2. Feeling down, depressed, or hopeless: not at all 3. Trouble falling or staying asleep, or sleeping too much: not at all 4. Feeling tired or having little energy: several days 5. Poor appetite or overeating: not at all 6. Feeling bad about yourself - or that you are a failure or have let yourself or your family down: not at all 7. Trouble concentrating on things, such as reading the newspaper or watching television: not at all 8. Moving or speaking so slowly that other people could have noticed. Or the opposite - being so fidgety or restless that you have been moving around a lot more than usual: not at all 9. Thoughts that you would be better off or of hurting yourself in some way: not at all Total score: 1 Depression Screening Interpretation: Negative Depression Screening Done: Yes 58262 - PHQ-9 Billing: Yes Source: Developed by Drs. Kvng Pearson, Janae Peralta, Wm Reyes and colleagues, with an educational dali from [employer]. Thrive Questionnaire Date Thrive assessed: 08/30/24 I am a: Patient What is your living situation today?: I choose not to answer this question Within the past 12 months, did the food you bought not last and you didn't have the money to get more?: I choose not to answer this question Within the past 12 months, did you worry whether your food would run out before you got money to buy more?: I choose not to answer this question Do you have trouble paying for medicines?: I choose not to answer this question Do you have trouble getting transportation to medical appointments?: I choose not to answer this question Do you have trouble paying your heating and electricity bill?: I choose not to answer this question Do you have trouble taking care of your child, family member or friend?: I choose not to answer this question Do you have trouble with day-to-day activities such as bathing, preparing meals, shopping, managing finances, etc.?: I choose not to answer this question Are you currently unemployed and looking for a job?: No Are you interested in more education?: No Please select the resources that you would like help with: None Currently or been in a relationship where the following occur: No concerns reported THRIVE Score: 0 AUDIT C Alcohol Use Questionnaire (AUDIT-C) 1. How often do you have a drink containing alcohol?: Monthly or less 2. How many drinks containing alcohol do you have on a typical day when you are drinking?: 1 or 2 3. How often do you have six or more drinks on one occasion?: Never Total Score: 1 Score Reviewed/Action Taken: Yes CRISTHIAN-7 AMB Questionnaire CRISTHIAN-7 Date CRISTHIAN - 7 assessed: 08/30/24 Feeling nervous, anxious, or on edge: 0 = Not at all Not being able to stop or control worryin = Not at all Worrying too much about different things: 0 = Not at all Trouble relaxin = Not at all Being so restless that it is hard to sit still: 0 = Not at all Becoming easily annoyed or irritable: 0 = Not at all Feeling afraid as if something awful might happen: 0 = Not at all Total CRISTHIAN-7 score (0-4 normal; 5-9 mild; 10-14 moderate; 15-21 severe): 0 Source: Developed by Drs. Kvng Pearson, Janae Peralta, Wm Reyes and colleagues, with an educational dali from [employer]. Review of Systems Const Denies chills, Reports difficulty sleeping (at times), Denies fatigue, Denies fever(s) and Denies headache(s) ENT Denies dysphagia, Denies dizziness, Denies otalgia, Denies headache(s), Denies neck pain, Denies odynophagia and Denies sore throat Card Denies chest pain, Denies irregular heart rhythm, Denies palpitations and Denies dyspnea Resp Denies chest congestion, Denies cough and Denies dyspnea GI Denies abdominal pain, Denies constipation, Denies dysphagia, Denies heartburn, Denies diarrhea, Denies nausea, Denies odynophagia and Denies vomiting Denies urinary frequency, Denies dysuria and Denies urinary urgency Musc Denies back pain, Denies arthralgias and Denies neck pain Skin/Breast Denies rash Neuro Denies dizziness, Denies headache(s) and Denies paresthesias Psych Denies anxiety and Denies depression Endo Denies fatigue and Denies palpitations Harry/Lymph Denies easy bruising Physical exam (Primary Care) Vital Signs: Last Vital Signs Pulse 69 08/30/24 15:46 BP 140/80 H 08/30/24 15:46 Pulse Ox 95 08/30/24 15:46 Oxygen Delivery Method Room Air 08/30/24 15:46 BMI result Body Mass Index 29.6 Tobacco/Smoking Status: Tobacco use Status Tobacco use date assessed 08/30/24 08/30/24 15:48 Patient Tobacco Use Status Never used Tobacco 08/30/24 15:48 Tobacco use type Cigarette 08/30/24 15:48 e-Cigarette/Vaping Use Never Used 08/30/24 15:48 PHQ-9: PHQ-9 Score PHQ-9: Total score 1 08/30/24 15:48 Depression Screening Interpretation: Negative Thrive Assessment: Date of Thrive Assessment Date Thrive assessed 08/30/24 08/30/24 15:48 Currently or been in a relationship where the following occur: No concerns reported Const General: no acute distress and alert HENMT Ears: TM's normal bilaterally and EAC's normal Throat: Yes posterior oropharynx normal and Yes tonsils normal (no TP congestion) Neck Neck: Yes supple and No lymphadenopathy Thyroid: Thyroid normal Resp Auscultation: clear to auscultation bilaterally, no rales and no wheezes Cardio Rate: regular rate Rhythm: regular rhythm Heart sounds: no murmurs GI Palpation (GI): Soft to palpation and nontender Auscultation: normal bowel sounds General: Yes no CVA tenderness Back/Spine/Pelvis Back: no CVA tenderness Thoracic/Lumbar Spine: No lumbar spinal tenderness Skin Rashes: no rashes Extrem General: Yes no clubbing, cyanosis or edema Results Reviewed Results Reviewed: Laboratory Tests 08/28/24 11:20 WBC 7.4 Hgb 14.7 Hct 42.1 Plt Count 259 Sodium 139 Potassium 4.0 Creatinine 0.73 Estimated GFR > 60 Fasting Glucose 145 H Hemoglobin A1c % 6.7 H Calcium 9.5 AST 23 ALT 22 Triglycerides 116 Cholesterol 170 LDL Cholesterol, Calc 89 HDL Cholesterol 58 25-OH Vitamin D Total 43.3 TSH 0.82 Ur Specific [place] 1.025 Urine Protein Negative Urine Glucose (UA) Negative Urine Blood Negative Urine Nitrite Negative Ur Leukocyte Esterase Negative Coding Level of Care Code Est Pt Level 4 (88943) Complex EM visit Add On G2211 Diagnoses Pure hypercholesterolemia E78.00 Type 2 diabetes mellitus without complication, without long-term current use of insulin E11.9 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 Benign essential hypertension I10 Moderate persistent asthma without complication J45.40 Asthma severity: moderate Asthma persistence: persistent Asthma complication type: uncomplicated Constipation, unspecified constipation type K59.00 Constipation type: unspecified constipation type Vitamin D deficiency E55.9 Tinnitus of left ear H93.12 Insomnia, unspecified type G47.00 Insomnia type: unspecified Anxiety F41.9 Episode of recurrent major depressive disorder, unspecified depression episode severity F33.9 Depression Type: major depressive disorder Major depression recurrence: recurrent Active/Remission status: currently active Major depression episode severity: unspecified Overweight (BMI 25.0-29.9) E66.3 Additional Codes PHQ-9 - 95389 - PHQ-9 Billing: Yes ([id number]) Assessment & Plan Assessment & Plan (1) Pure hypercholesterolemia: Code(s): E78.00 - Pure hypercholesterolemia, unspecified Category: Medical Plan: Results of her labs done a couple of days ago reviewed and discussed with patient Reinforced low cholesterol diet Continue Atorvastatin 40 mg QD Will recheck her labs and fasting lipids in 4 months for follow up (2) Type 2 diabetes mellitus without complications: Comment: diet controlled Code(s): E11.9 - Type 2 diabetes mellitus without complications Category: Medical Qualifiers: Diabetes mellitus residential insulin use: without residential use Qualified Code(s): E11.9 - Type 2 diabetes mellitus without complications Plan: Her HgbA1c was at 6.7% on her labs done a couple of days ago (was previously at 6.4% a few months ago) - goal is ideally <6.5% Reinforced diabetic diet Continue Metformin ER 500 mg Q PM for now (3) Benign essential hypertension: Code(s): I10 - Essential (primary) hypertension Category: Medical Plan: Reinforced low sodium diet - goal is systolic BP of around 120 to 130 mm or less Continue Amlodipine 2.5 mg QD and Lisinopril-HCT 20-25 mg QD (4) Asthma: Comment: uses daily inhaler, pren rescue inhaler & nebulizer Code(s): J45.909 - Unspecified asthma, uncomplicated Category: Medical Qualifiers: Asthma severity: moderate Asthma persistence: persistent Asthma complication type: uncomplicated Qualified Code(s): J45.40 - Moderate persistent asthma, uncomplicated Plan: Controlled Continue Alvesco aerosol inhaler 80 mcg 1 inhalation twice a day and ProAir HFA 2 puffs every 6 hours only as needed - patient states that she hardly has to use her rescue inhaler (5) Constipation: Code(s): K59.00 - Constipation, unspecified Category: Medical Qualifiers: Constipation type: unspecified constipation type Qualified Code(s): K59.00 - Constipation, unspecified Plan: Patient is again encouraged on? increased oral fluids and dietary fiber to help control her symptoms Continue Fiber supplements (Citrucel) daily - she was started on this by GI Continue Docusate 100 mg QD PRN She had a normal colonoscopy back in April 2020 Follow up with GI as scheduled (6) Vitamin D deficiency: Code(s): E55.9 - Vitamin D deficiency, unspecified Category: Medical Plan: Continue Vitamin D2 81232 units once a week (7) Tinnitus of left ear: Code(s): H93.12 - Tinnitus, left ear Category: Medical Plan: She was seen by ENT in [place] last year and was reportedly advised that her ear exam was normal She was sent for an MRI of the head/ears for further evaluation - this reportedly came out okay Follow up with ENT as scheduled (8) Insomnia: Code(s): G47.00 - Insomnia, unspecified Category: Medical Qualifiers: Insomnia type: unspecified Qualified Code(s): G47.00 - Insomnia, unspecified Plan: Sleep hygiene reinforced Continue Trazodone 200 mg daily at bedtime as needed She has been advised that she can also add OTC Melatonin PRN to help her sleep better if she finds that Trazodone is not helping as much (9) Anxiety: Code(s): F41.9 - Anxiety disorder, unspecified Category: Medical Plan: Continue Lorazepam 0.5 mg 1 to 2 times a day as needed States that Citalopram helps with her anxiety as well (10) Depression: Code(s): F32.9 - Major depressive disorder, single episode, unspecified Category: Medical Qualifiers: Depression Type: major depressive disorder Major depression recurrence: recurrent Active/Remission status: currently active Major depression episode severity: unspecified Qualified Code(s): F33.9 - Major depressive disorder, recurrent, unspecified Plan: Continue Citalopram 40 mg once a day and Mirtazapine 15 mg daily at bedtime Follow-up with Psychiatry as scheduled (11) Overweight (BMI 25.0-29.9): Code(s): E66.3 - Overweight Category: Medical Plan: Reinforced diet/exercise as tolerated/lose weight Plan Follow up in 4 months Orders: Orders Hemoglobin A1c 4 Months E11.9 - Type 2 diabetes mellitus without complications Lipid Panel 4 Months E78.00 - Pure hypercholesterolemia, unspecified Microalbumin, Random (w Creat) 4 Months E11.9 - Type 2 diabetes mellitus without complications TSH reflex Free T4 4 Months E78.00 - Pure hypercholesterolemia, unspecified Vitamin D 25-OH Total 4 Months E55.9 - Vitamin D deficiency, unspecified Vitamin B12 and Folate 4 Months E53.8 - Deficiency of other specified B group vitamins Complete Blood Count Auto Diff 4 Months D64.9 - Anemia, unspecified Comprehensive [place]. Panel Fast 4 Months E78.00 - Pure hypercholesterolemia, unspecified UA CC w/rflx Micro + Cult 4 Months R30.0 - Dysuria
--- OUTSIDE RECORDS SUMMARY | 2024-08-30 15:46 | XMS_ITS | Data Portability ---
Author Organization [facility], [address] Address [address] [place] [address] Assessment No assessment recorded. Plan of Treatment [...] SNOMED-CT Code Diagnosis ICD10 Code Diagnosis Note [id number] [address] [address] [address] [address] 07/08/2021 15:25:21 07/08/2021 18:31:35 Health Concerns Section Related Observation LastModified by Organization Detai ls LastModified Time None Recorded Concern Status LastModified by Organization Details LastModified Time None Recorded Advance Directives Directive None Recorded Payers Insurance Date Sequence Insurance Name Policy Number Policy Farrell Covered Member ID Farrell Member ID Guarantor Name 03/22/2022 1 [facility] - HEALTH NET PLAN (MEDICAID HMO) ROQUE Cooper [id number] Chanelle Cooper OBGyn Episode No OBEpisode recorded.
== END 2024-08-30 16:33 | disposition home or self-care (01) ==
LOC: HO.HMCH 15:43
PROVIDERS: PCP Internal Medicine; Visit Provider Internal Medicine
DX: E78.00 Pure hypercholesterolemia, unspecified (principal); E11.9 Type 2 diabetes mellitus without complications; I10 Essential (primary) hypertension; J45.40 Moderate persistent asthma, uncomplicated; K59.00 Constipation, unspecified; E55.9 Vitamin D deficiency, unspecified; H93.12 Tinnitus, left ear; G47.00 Insomnia, unspecified; F41.9 Anxiety disorder, unspecified; F33.9 Major depressive disorder, recurrent, unspecified; E66.3 Overweight

== ENCOUNTER → 2024-08-30 15:43 | Outpatient (BNVA) | payer MEDICARE, MEDICAID, SELFPAY | PROVIDERS: PCP Internal Medicine; Visit Provider Internal Medicine | DX: E78.00 Pure hypercholesterolemia, unspecified (principal); E11.9 Type 2 diabetes mellitus without complications; I10 Essential (primary) hypertension; J45.40 Moderate persistent asthma, uncomplicated; E55.9 Vitamin D deficiency, unspecified; H93.12 Tinnitus, left ear; G47.00 Insomnia, unspecified; F41.9 Anxiety disorder, unspecified; F33.9 Major depressive disorder, recurrent, unspecified; E66.3 Overweight; Z68.29 Body mass index [BMI] 29.0-29.9, adult; Z71.3 Dietary counseling and surveillance | CPT/HCPCS: 96127; 99212 ==

== ENCOUNTER 2024-12-30 11:27 | Outpatient (REF) | payer MEDICARE, MEDICAID, SELFPAY ==
[2024-12-30 12:59] LABS: MANUAL DIFF FLAG NO
[2024-12-30 13:02] LABS: Appearance Urine Clear; Glucose Urine UA Negative (Negative); PH 6.0 (5.0-9.0); Specific Gravity - Urine 1.020 (1.005-1.025)
[2024-12-30 13:06] LABS: Hematocrit 43.7 % (37.0-47.0); Hemoglobin 14.4 g/dl (12.0-16.0); Imm Gran Abs Auto 0.01 X10*3/uL (0.00-0.03); Imm Gran Pct Auto 0.2 % (0.0-0.4); Lymphocytes Absolute Auto 2.5 X10*3/uL (1.2-4.9); Mean Corpuscular HGB Conc 33.0 g/dl (31.0-35.0); Mean Corpuscular Hemoglobin 29.9 pg (27.0-33.0); Mean Corpuscular Volume 90.7 fL (80.0-98.0); NRBC Abs Auto 0.000 X10*3/uL (0.0-0.012); NRBC Pct Auto 0.0 /100WBC (0.0-0.2); Platelet Count 242 X10*3/uL (160-400); Red Blood Count 4.82 X10*6/uL (4.20-5.50); White Blood Count 6.5 X10*3/uL (4.8-10.8)
[2024-12-30 13:35] LABS: Microalbum/Creatinine Ratio Ur 6.4 ug/mg cr (<30)
[2024-12-30 13:46] LABS: Alanine Aminotransferase 28 U/L (0-31); Albumin Level 4.6 g/dL (3.5-5.0); Alkaline Phosphatase 97 U/L (39-117); Anion Gap 11 (12-20); Aspartate Amino Transferase 29 U/L (5-31); Blood Urea Nitrogen 12 mg/dL (9-16); Calcium 9.7 mg/dL (8.4-10.2); Carbon Dioxide 28 mmol/L (22-29); Chloride 105 mmol/L (96-108); Cholesterol 164 mg/dL (<200); Estimated Glomerular Filt Rate > 60; HDL Cholesterol 57 mg/dL (>40); Potassium 3.7 mmol/L (3.3-5.1); Sodium 140 mmol/L (135-145); Total Protein 7.5 g/dL (6.5-8.0); Triglycerides 113 mg/dL (<150)
--- OUTSIDE RECORDS SUMMARY | 2024-12-30 13:49 | XMS_ITS | Data Portability ---
Author Organization [facility], [address] Address [address] [place] [id number] Assessment No assessment recorded. Plan of Treatment [...] Diagnosis SNOMED-CT Code Diagnosis ICD10 Code Diagnosis IMO Codes Diagnosis Note [id number] [facility] [address] [place] [address] 07/08/2021 15:25:21 07/08/2021 18:31:35 Health Concerns Section Related Observation LastModified by Organization Detai ls LastModified Time None Recorded Concern Status LastModified by Organization Details LastModified Time None Recorded Advance Directives Directive None Recorded Payers Insurance Date Sequence Insurance Name Policy Number Policy Farrell Covered Member ID Farrell Member ID Guarantor Name 03/22/2022 1 [facility] [employer] [employer] - HEALTH NET PLAN (MEDICAID HMO) JAYNENACJavier Cooper [id number] Chanelle Cooper OBGyn Episode No OBEpisode recorded.
[2024-12-30 13:53] LABS: Folate 6.7 ng/mL (> or = 4.0); Vitamin B12 662 pg/mL (200-900)
== END 2024-12-30 11:28 | disposition home or self-care (01) ==
LOC: HO.10HDL 11:27
PROVIDERS: Visit Provider Internal Medicine
DX: E11.9 Type 2 diabetes mellitus without complications (principal); E53.8 Deficiency of other specified B group vitamins; E78.00 Pure hypercholesterolemia, unspecified; E55.9 Vitamin D deficiency, unspecified; D64.9 Anemia, unspecified; R30.0 Dysuria
CPT/HCPCS: 36415; 80053; 80061; 81003; 82043; 82306; 82570; 82607; 82746; 83036; 84443; 85025

== ENCOUNTER 2025-01-01 13:28 | Outpatient (AMB) | payer MEDICARE, MEDICAID, SELFPAY ==
[2025-01-01 13:32] VITALS: BP 120/84; PULSE 68; O2SAT 98; BMI 29.9
--- NOTE | 2025-01-01 13:32 | A.OFFPC_ITS ---
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 Accompanied by: Self / Same As Patient Allergies No Known Allergies Allergy (Verified 01/01/25 14:09) Medication List - Last Reconciled 01/01/25 by Moisés Santos MD albuterol sulfate 2.5 mg continuous nebulization Q6H PRN albuterol sulfate 2.5 mg (0.5 mL) inhalation Q6H PRN albuterol sulfate 90 mcg/actuation 1 inh inhalation Q4-6H PRN albuterol sulfate 90 mcg/actuation 2 puffs inhalation Q6H PRN amlodipine 2.5 mg PO DAILY 90 days atorvastatin 40 mg PO DAILY 90 days ciclesonide 80 mcg/actuation (Alvesco) 1 puff inhalation BID citalopram 40 mg PO DAILY 90 days cyclobenzaprine 10 mg PO TID PRN docusate sodium 100 mg PO DAILY PRN 30 days ergocalciferol (vitamin D2) 1,250 mcg PO QWEEK 90 days lisinopril-hydrochlorothiazide 20-25 mg 1 tab PO DAILY 90 days lorazepam 0.5 mg PO BID PRN meloxicam 15 mg PO DAILY metformin ER 500 mg PO QPM 90 days methylcellulose (laxative) (Citrucel) 500 mg PO DAILY metoprolol succinate ER 50 mg PO DAILY 90 days mirtazapine 15 mg PO BEDTIME 90 days trazodone 200 mg (2 x 100 mg) PO BEDTIME PRN 30 days Tobacco use date assessed: 01/01/25 Fall risk assessment: No Falls in past year Last assessed Fall Risk: 01/01/25 Dental Screening Dental Screen Date: 01/01/25 Did you have a dental visit in the last 12 months?: Yes Did you have a dental problem in the last 6 months where you did not have access to dental care?: No Was dental information given to patient?: Patient has dentist HPI DM, hyperlipidemia, HTN, asthma HPI Details Patient comes in today for her follow-up visit States that she feels okay She denies any headaches or dizziness Denies any chest pains, no shortness of breath No nausea/vomiting, no abdominal pain No change in bowel habits noted Needs a couple of her Rx refilled She had her follow up labs done a couple of days ago - to discuss her results She would also like to get her flu shot today [facility] Medical History (Updated 01/01/25 @ 14:19 by Moisés Santos MD) Overweight (BMI 25.0-29.9) Tinnitus of both ears Depression Anxiety Insomnia Vitamin D deficiency Constipation Asthma Palpitations Pure hypercholesterolemia Benign essential hypertension Type 2 diabetes mellitus without complications Surgical History H/O colonoscopy (~04/20/20) History of removal of ovarian cyst History of tubal ligation Family History Father Diabetes Stroke Hypertension Mother Uterine cancer Hypertension Sister No problems noted. Social History Household Members: Children Housing: House Alcohol intake: current Alcohol intake frequency: holidays/special occasions only Alcohol type: wine Patient Tobacco Use Status: Never used Tobacco Tobacco use type: Cigarette e-Cigarette/Vaping Use: Never Used Second Hand Smoke Exposure: No Advance Directives Date on File: 12/04/19 service: No Current occupational status: disabled Current occupational exposures/hazards: No Sexual orientation: Straight/Heterosexual Gender identity: Female Cognitive needs: No Hearing needs: No Vision needs: No Female Reproductive History Menstrual Age of Menarche: 14 Questionnaire PHQ-9 Over the last 2 weeks, how often have you been bothered by any of the following problems? 1. Little interest or pleasure in doing things: not at all 2. Feeling down, depressed, or hopeless: not at all 3. Trouble falling or staying asleep, or sleeping too much: not at all 4. Feeling tired or having little energy: several days 5. Poor appetite or overeating: not at all 6. Feeling bad about yourself - or that you are a failure or have let yourself or your family down: not at all 7. Trouble concentrating on things, such as reading the newspaper or watching television: not at all 8. Moving or speaking so slowly that other people could have noticed. Or the opposite - being so fidgety or restless that you have been moving around a lot more than usual: not at all 9. Thoughts that you would be better off or of hurting yourself in some way: not at all Total score: 1 Depression Screening Interpretation: Negative Depression Screening Done: Yes 18268 - PHQ-9 Billing: Yes Source: Developed by Drs. Kvng Pearson, Janae Peralta, Wm Reyes and colleagues, with an educational dali from [employer]. Thrive Questionnaire Date Thrive assessed: 01/01/25 I am a: Patient What is your living situation today?: I choose not to answer this question Within the past 12 months, did the food you bought not last and you didn't have the money to get more?: I choose not to answer this question Within the past 12 months, did you worry whether your food would run out before you got money to buy more?: I choose not to answer this question Do you have trouble paying for medicines?: I choose not to answer this question Do you have trouble getting transportation to medical appointments?: I choose not to answer this question Do you have trouble paying your heating and electricity bill?: I choose not to answer this question Do you have trouble taking care of your child, family member or friend?: No Do you have trouble with day-to-day activities such as bathing, preparing meals, shopping, managing finances, etc.?: No Are you currently unemployed and looking for a job?: No Are you interested in more education?: No Please select the resources that you would like help with: None Currently or been in a relationship where the following occur: No concerns reported THRIVE Score: 0 AUDIT C Alcohol Use Questionnaire (AUDIT-C) 1. How often do you have a drink containing alcohol?: Monthly or less 2. How many drinks containing alcohol do you have on a typical day when you are drinking?: 1 or 2 3. How often do you have six or more drinks on one occasion?: Never Total Score: 1 Score Reviewed/Action Taken: Yes CRISTHIAN-7 AMB Questionnaire CRISTHIAN-7 Date CRISTHIAN - 7 assessed: 01/01/25 Feeling nervous, anxious, or on edge: 0 = Not at all Not being able to stop or control worryin = Not at all Worrying too much about different things: 0 = Not at all Trouble relaxin = Not at all Being so restless that it is hard to sit still: 0 = Not at all Becoming easily annoyed or irritable: 0 = Not at all Feeling afraid as if something awful might happen: 0 = Not at all Total CRISTHIAN-7 score (0-4 normal; 5-9 mild; 10-14 moderate; 15-21 severe): 0 Source: Developed by Drs. Kvng Pearson, Janae Peralta, Wm Reyes and colleagues, with an educational dali from [employer]. Review of Systems Const Denies chills, Reports difficulty sleeping (at times), Denies fatigue, Denies fever(s) and Denies headache(s) ENT Denies dysphagia, Denies dizziness, Denies otalgia, Denies headache(s), Denies neck pain, Denies odynophagia and Denies sore throat Card Denies chest pain, Denies irregular heart rhythm, Denies palpitations and Denies dyspnea Resp Denies chest congestion, Denies cough and Denies dyspnea GI Denies abdominal pain, Denies constipation, Denies dysphagia, Denies heartburn, Denies diarrhea, Denies nausea, Denies odynophagia and Denies vomiting Denies difficulty voiding, Denies nocturia, Denies dysuria and Denies urinary urgency Musc Denies back pain, Denies arthralgias and Denies neck pain Skin/Breast Denies rash Neuro Denies dizziness, Denies headache(s) and Denies paresthesias Psych Denies anxiety and Denies depression Endo Denies fatigue and Denies palpitations Harry/Lymph Denies easy bruising Physical exam (Primary Care) Vital Signs: Last Vital Signs Pulse 68 01/01/25 13:32 BP 120/84 01/01/25 13:32 Pulse Ox 98 01/01/25 13:32 Oxygen Delivery Method Room Air 01/01/25 13:32 BMI result Body Mass Index 29.9 Tobacco/Smoking Status: Tobacco use Status Tobacco use date assessed 01/01/25 01/01/25 13:34 Patient Tobacco Use Status Never used Tobacco 01/01/25 13:34 Tobacco use type Cigarette 01/01/25 13:34 e-Cigarette/Vaping Use Never Used 01/01/25 13:34 PHQ-9: PHQ-9 Score PHQ-9: Total score 1 01/01/25 14:13 Depression Screening Interpretation: Negative Thrive Assessment: Date of Thrive Assessment Date Thrive assessed 01/01/25 01/01/25 13:34 Currently or been in a relationship where the following occur: No concerns re ported Const General: no acute distress and alert HENMT Ears: TM's normal bilaterally and EAC's normal Throat: Yes posterior oropharynx normal and Yes tonsils normal (no TP congestion) Neck Neck: Yes supple and No lymphadenopathy Thyroid: Thyroid normal Resp Auscultation: clear to auscultation bilaterally, no rales and no wheezes Cardio Rate: regular rate Rhythm: regular rhythm Heart sounds: no murmurs GI Palpation (GI): Soft to palpation and nontender Auscultation: normal bowel sounds General: Yes no CVA tenderness Back/Spine/Pelvis Back: no CVA tenderness Thoracic/Lumbar Spine: No lumbar spinal tenderness Skin Rashes: no rashes Extrem General: Yes no clubbing, cyanosis or edema Office Procedures Flu Questionnaire Does the patient have a severe egg allergy?: No Does the patient have severe life threatening allergies?: No Does the patient have a fever or illness today?: No Has the patient ever had Guillain-Littcarr Syndrome?: No Has the patient ever had any past reaction to a flu shot?: No Immunizations Fluarix [id number] (PF) 45 mcg (15 mcg x 3)/0.5 mL IM syringe Performing Provider: Moisés Santos MD [facility] Administered by: Kenzie Golden CMA on 01/01/25 14:26 Dose Route Admin Location Dispensed Lot Number Expiration Date [facility] 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 0.5 mL IM Left Deltoid 0.5 mL [id number] 08/19/25 [id number] [employer] VIS Given Date VIS Provided VIS Publication Date 01/01/25 Single Vaccine 24 Eligibility Eligibility Date Funding Source Not [facility] Eligible 01/01/25 Private Results Reviewed Results Reviewed: Laboratory Tests 12/30/24 11:35 WBC 6.5 Hgb 14.4 Hct 43.7 Plt Count 242 Sodium 140 Potassium 3.7 Creatinine 0.71 Estimated GFR > 60 Fasting Glucose 127 H Hemoglobin A1c % 6.7 H Calcium 9.7 AST 29 ALT 28 Triglycerides 113 Cholesterol 164 LDL Cholesterol, Calc 85 HDL Cholesterol 57 Vitamin B12 662 25-OH Vitamin D Total 39.6 TSH 0.98 Ur Specific [place] 1.020 Urine Protein Negative Urine Glucose (UA) Negative Urine Blood Negative Urine Nitrite Negative Ur Leukocyte Esterase Negative Microalb/Creat Ratio 6.4 Coding Level of Care Code Est Pt Level 4 (58204) Diagnoses Pure hypercholesterolemia E78.00 Type 2 diabetes mellitus without complication, without long-term current use of insulin E11.9 Diabetes mellitus long filler cigar roller machine insulin use: without chcf use Benign essential hypertension I10 Moderate persistent asthma without complication J45.40 Asthma severity: moderate Asthma persistence: persistent Asthma complication type: uncomplicated Constipation, unspecified constipation type K59.00 Constipation type: unspecified constipation type Vitamin D deficiency E55.9 Tinnitus of left ear H93.12 Insomnia, unspecified type G47.00 Insomnia type: unspecified Anxiety F41.9 Episode of recurrent major depressive disorder, unspecified depression episode severity F33.9 Depression Type: major depressive disorder Major depression recurrence: recurrent Active/Remission status: currently active Major depression episode severity: unspecified Overweight (BMI 25.0-29.9) E66.3 Additional Codes PHQ-9 - 61263 - PHQ-9 Billing: Yes ([id number]) Assessment & Plan Assessment & Plan (1) Pure hypercholesterolemia: Code(s): E78.00 - Pure hypercholesterolemia, unspecified Category: Medical Plan: Results of her labs done a couple of days ago reviewed and discussed with patient Reinforced low cholesterol diet Continue Atorvastatin 40 mg QD Will recheck her labs and fasting lipids in 4 months for follow up (2) Type 2 diabetes mellitus without complications: Comment: diet controlled Code(s): E11.9 - Type 2 diabetes mellitus without complications Category: Medical Qualifiers: Diabetes mellitus long filler cigar roller machine insulin use: without chcf use Qualified Code(s): E11.9 - Type 2 diabetes mellitus without complications Plan: Her HgbA1c remains unchanged at 6.7% on her labs done a couple of days ago (was previously also at 6.7% a few months ago) - goal is ideally <6.5% Reinforced diabetic diet Continue Metformin ER 500 mg Q PM (3) Benign essential hypertension: Code(s): I10 - Essential (primary) hypertension Category: Medical Plan: Reinforced low sodium diet - goal is systolic BP of around 120 to 130 mm or less Her blood pressure seems to be much better today than it was at her last visit Continue Amlodipine 2.5 mg QD and Lisinopril-HCT 20-25 mg QD - both Rx refilled today (4) Asthma: Comment: uses daily inhaler, PRN rescue inhaler & nebulizer Code(s): J45.909 - Unspecified asthma, uncomplicated Category: Medical Qualifiers: Asthma severity: moderate Asthma persistence: persistent Asthma complication type: uncomplicated Qualified Code(s): J45.40 - Moderate persistent asthma, uncomplicated Plan: Controlled Continue Alvesco aerosol inhaler 80 mcg 1 inhalation twice a day and ProAir HFA 2 puffs every 6 hours only as needed - patient states that she hardly has to use her rescue inhaler (5) Constipation: Code(s): K59.00 - Constipation, unspecified Category: Medical Qualifiers: Constipation type: unspecified constipation type Qualified Code(s): K59.00 - Constipation, unspecified Plan: Patient is again encouraged on? increased oral fluids and dietary fiber intake to help control/manage her constipation Continue Fiber supplements (Citrucel) daily - she was started on this by GI Continue Docusate 100 mg QD PRN She had a normal colonoscopy back in April 2020 Follow up with GI as scheduled (6) Vitamin D deficiency: Code(s): E55.9 - Vitamin D deficiency, unspecified Category: Medical Plan: Continue Vitamin D2 82067 units once a week (7) Tinnitus of left ear: Code(s): H93.12 - Tinnitus, left ear Category: Medical Plan: She was seen by ENT in [place] last year and was reportedly advised that her ear exam was normal She was sent for an MRI of the head/ears for further evaluation - this reportedly came out okay Follow up with ENT as scheduled (8) Insomnia: Code(s): G47.00 - Insomnia, unspecified Category: Medical Qualifiers: Insomnia type: unspecified Qualified Code(s): G47.00 - Insomnia, unspecified Plan: Sleep hygiene reinforced Continue Trazodone 200 mg daily at bedtime as needed She has been advised that she can also add OTC Melatonin PRN to help her sleep better if she finds that Trazodone is not helping as much (9) Anxiety: Code(s): F41.9 - Anxiety disorder, unspecified Category: Medical Plan: Continue Lorazepam 0.5 mg 1 to 2 times a day as needed She was also taking Citalopram in the past but this has not been refilled in over 2 years now so she likely has not been taking this for a while Have advised patient to bring in all of her medications at her next appointment so we can try to reconcile her medications better (10) Depression: Code(s): F32.9 - Major depressive disorder, single episode, unspecified Category: Medical Qualifiers: Depression Type: major depressive disorder Major depression recurrence: recurrent Active/Remission status: currently active Major depression episode severity: unspecified Qualified Code(s): F33.9 - Major depressive disorder, recurrent, unspecified Plan: Continue Mirtazapine 15 mg daily at bedtime - patient thinks that she is still taking this but Rx has also not been refilled in over 2 years States that she is not seeing any psychiatrist or therapist so unclear if this is actually what she is still taking She appears to have stopped taking Citalopram a while back Will have her bring in all of her meds at her next appointment to try to reconcile her actual meds to her med list (11) Overweight (BMI 25.0-29.9): Code(s): E66.3 - Overweight Category: Medical Plan: Reinforced diet/exercise as tolerated/lose weight Plan Per request, flu vaccine given to the patient today Follow up in 4 months Orders: Orders Influenza [id number] Immunization Today Z23 - Encounter for immunization Comprehensive [place]. Panel Fast 4 Months E78.00 - Pure hypercholesterolemia, unspecified Lipid Panel 4 Months E78.00 - Pure hypercholesterolemia, unspecified TSH reflex Free T4 4 Months E78.00 - Pure hypercholesterolemia, unspecified Hemoglobin A1c 4 Months E11.9 - Type 2 diabetes mellitus without complications Complete Blood Count Auto Diff 4 Months D64.9 - Anemia, unspecified Microalbumin, Random (w Creat) 4 Months E11.9 - Type 2 diabetes mellitus without complications Vitamin B12 and Folate 4 Months E53.8 - Deficiency of other specified B group vitamins Vitamin D 25-OH Total 4 Months E55.9 - Vitamin D deficiency, unspecified UA CC w/rflx Micro + Cult 4 Months R30.0 - Dysuria Medications: Refilled amlodipine 2.5 mg PO DAILY 90 tabs 1RF 90 days lisinopril-hydrochlorothiazide 20-25 mg 1 tab PO DAILY 90 tabs 1RF 90 days
--- OUTSIDE RECORDS SUMMARY | 2025-01-01 16:19 | XMS_ITS | Data Portability ---
Author Organization [facility], [address] Address [address] [place] [address] Assessment No assessment recorded. Plan of Treatment [...] ICD10 Code Diagnosis IMO Codes Diagnosis Note [id number] [facility] [address] [place] [address] 07/08/2021 15:25:21 07/08/2021 18:31:35 Health Concerns Section Related Observation LastModified by Organization Detai ls LastModified Time None Recorded Concern Status LastModified by Organization Details LastModified Time None Recorded Advance Directives Directive None Recorded Payers Insurance Date Sequence Insurance Name Policy Number Policy Farrell Covered Member ID Farrell Member ID Guarantor Name 03/22/2022 1 [facility] [place] [facility] - HEALTH NET PLAN (MEDICAID HMO) JAYNENACJavier Cooper [id number] Chanelle Cooper OBGyn Episode No OBEpisode recorded.
== END 2025-01-01 14:29 | disposition home or self-care (01) ==
LOC: HO.HMCH 13:28
PROVIDERS: PCP Internal Medicine; Visit Provider Internal Medicine
DX: E78.00 Pure hypercholesterolemia, unspecified (principal); E11.9 Type 2 diabetes mellitus without complications; I10 Essential (primary) hypertension; J45.40 Moderate persistent asthma, uncomplicated; K59.00 Constipation, unspecified; E55.9 Vitamin D deficiency, unspecified; H93.12 Tinnitus, left ear; G47.00 Insomnia, unspecified; F41.9 Anxiety disorder, unspecified; F33.9 Major depressive disorder, recurrent, unspecified; E66.3 Overweight; Z23 Encounter for immunization

== ENCOUNTER → 2025-01-01 13:28 | Outpatient (BNVA) | payer MEDICARE, MEDICAID, SELFPAY | PROVIDERS: PCP Internal Medicine; Visit Provider Internal Medicine | DX: E11.9 Type 2 diabetes mellitus without complications (principal); I10 Essential (primary) hypertension; J45.909 Unspecified asthma, uncomplicated; E78.00 Pure hypercholesterolemia, unspecified; J45.40 Moderate persistent asthma, uncomplicated; K59.00 Constipation, unspecified; E55.9 Vitamin D deficiency, unspecified; H93.12 Tinnitus, left ear; G47.00 Insomnia, unspecified; F41.9 Anxiety disorder, unspecified; F33.9 Major depressive disorder, recurrent, unspecified; E66.3 Overweight; Z23 Encounter for immunization; Z68.29 Body mass index [BMI] 29.0-29.9, adult | CPT/HCPCS: 90471; 90656; 96127; 99212 ==